=== PATIENT | male | born 1965 | race Caucasian/White ===

== ENCOUNTER → 2020-02-15 | Outpatient (CLI) | payer BC ==
--- NOTE | 2020-02-15 08:41 | US ---
EXAMINATION TYPE: US liver DATE OF EXAM: 02/15/2020 COMPARISON: NONE CLINICAL HISTORY: R94.5 abn liver function. EXAM MEASUREMENTS: Liver Length: 13.2 cm Gallbladder Wall: 0.2 cm CBD: 0.2 cm Right Kidney: 11.9 x 4.1 x 5.6 cm Extensive midline bowel gas. Pancreas: Obscured by bowel gas Liver: homogenous Gallbladder: wnl Evidence for sonographic Eastman's sign: no CBD: wnl Right Kidney: wnl IMPRESSION: Normal right upper quadrant ultrasound as visualized
== END | disposition home or self-care (01) ==
LOC: RADUSWWP 08:05
PROVIDERS: ATTEND Internal Medicine
DX: R94.5 Abnormal results of liver function studies (principal)
CPT/HCPCS: 76705

== ENCOUNTER → 2021-09-07 | Outpatient (CLI) | payer BC ==
--- NOTE | 2021-09-08 14:04 | MR ---
EXAMINATION TYPE: MR lumbar spine wo con DATE OF EXAM: 09/07/2021 COMPARISON: NONE HISTORY: Low back pain that radiates down left leg for 2 months. TECHNIQUE: Multiplanar, multisequence imaging of the lumbar spine is performed without IV contrast. FINDINGS: Slight scoliotic curvature coronal images. Sagittal images of the lumbar spine show vertebr al body heights and alignment to appear satisfactory. Multilevel disc desiccation with advanced disc space narrowing L4-L5 level and heterogeneous Modic type I endplate changes with mild to moderate spu rring. The conus medullaris is abutted by round intradural extra medullary 1.4 cm lesion isointense to the conus on T1-weighted images and hyperintense on T2-weighted images to left of midline causing right-sided conus deviation axial image 29. The bone marrow signal intensity is overall diffuse low T1 and T2 signal but not as dark as adjacent paraspinal muscles favoring benign etiology. Axial images at T12-L1 level show left rounded well-circumscribed 1.2 cm T2 hyperintense intradural e xtra medullary mass causing lumbosacral nerve roots to be deviated to right of midline. Axial images at L1-L2 level show tiny central disc protrusion mildly effacing anterior thecal sac.. B ilateral neural foramina. Axial images at L2-L3 level appear within normal limits. Axial images at L3-L4 level show mild broad disc bulge minimally effacing anterior thecal sac and cau sing mild left-sided anterior inferior neural foraminal narrowing. Axial images at L4-L5 level mild/moderate broad-based posterior disc protrusion with broad-based righ t foraminal/extraforaminal disc protrusion component causing moderate inferior right-sided neural for aminal narrowing. Axial images at L5-S1 level show mild facet arthropathy bilaterally. Spinal canal is preserved. Bilat eral neural foramina are patent. There are central simple parapelvic cysts in both kidneys noted. IMPRESSION: Multilevel degenerative changes in lumbar spine as detailed above. There is 1.2 cm intrad ural extramedullary lesion at level of conus. Differential includes leptomeningeal metastatic disease versus primary neoplasm such as meningioma. Advise further workup with contrast-enhanced study and c linical correlation.
== END | disposition home or self-care (01) ==
LOC: RADMRIMAIN 15:08
PROVIDERS: ATTEND Internal Medicine
DX: M51.26 Other intervertebral disc displacement, lumbar region (principal)
CPT/HCPCS: 72148

== ENCOUNTER → 2021-09-19 | Outpatient (CLI) | payer BC ==
--- NOTE | 2021-09-20 03:11 | MR ---
EXAMINATION TYPE: MR brain/cspine wo/w DATE OF EXAM: 09/19/2021 COMPARISON: None HISTORY: Abnormal lspine study, lesions, Neck and back pain, headaches CONTRAST: Standard multiplanar, multisequence MRI departmental protocol images were obtained without contrast a nd with 8.5 mL intravenous Gadavist gadolinium contrast. Multiplanar multi echo imaging of the brain and cervical spine with contrast. On the T2 images there is a mixed signal mass in the posterior fossa on the left side at the cerebell opontine angle. This appears separate from the acoustic nerve. The lesion has some intermediate and f luid signal. The lesion measures 3.6 cm with some displacement of the medulla to the right side. The lesion shows extensive pathologic enhancement with contrast. Lesion appears to be intra-axial arising from the cerebellar hemisphere. There is normal enhancement of the venous sinuses. Corpus callosum is intact. Sella turcica is intact. Diffusion images show no sign of an acute infarct . There is no evidence of orbital mass. There are other T2 and FLAIR images scattered white matter hi gh signal foci in both cerebral hemispheres measuring up to 5 mm. Total number is approximately 10 an d this could be some microvascular ischemia The cervical vertebra show fairly normal alignment. No significant disc space narrowing. There is min imal left-sided posterior disc bulging and spurring at C5-6 and C6-7. No cervical spinal stenosis. Ce rvical spinal cord has normal signal pattern. No edema. No evidence of focal bone destruction. The contrast images show elongated area of enhancement on the anterior aspect of the cervical spinal cord at the T1 and T2 level that measures 3 mm in thickness. IMPRESSION: Large mass in the posterior fossa on the left side that appears to be arising from the left cerebella r peduncle. This is intra-axial and enhancing and I would consider the possibility of a high-grade gl ioma. There is mass effect on the medulla but no edema seen in the medulla. There are scattered white matter high signal foci in both cerebral hemispheres likely related to some microvascular ischemia. There is small linear enhancing foci along anterior surface of the upper thoracic spinal cord at T1 a nd T2 level that could be meningeal metastatic disease..
== END | disposition home or self-care (01) ==
LOC: RADMRIMAIN 14:00
PROVIDERS: ATTEND Orthopaedic Surgery
DX: G93.89 Other specified disorders of brain (principal)
CPT/HCPCS: 70553; 72156; A9585

== ENCOUNTER → 2021-09-21 | Outpatient (CLI) | payer BC ==
--- NOTE | 2021-09-22 03:07 | MR ---
EXAMINATION TYPE: MR tspine/lspine wo/w con DATE OF EXAM: 09/21/2021 COMPARISON: None HISTORY: Bone lesion, abn mri CONTRAST: Standard multiplanar, multisequence MRI departmental protocol images were obtained without contrast a nd with 8.5 mL intravenous Gadavist gadolinium contrast. The thoracic vertebrae have fairly normal spacing and alignment. No compression fracture. No evidence of bone edema in the thoracic spine. Thoracic spinal cord has normal signal pattern. No spinal thora cic cord mass. No sign of thoracic spinal stenosis. No paraspinal mass. Lumbar vertebrae have normal alignment. There is mild narrowing of the L4-5 disc space and small posterior disc bulging at L4-5. The neural f oramina are fairly well maintained. There is a rounded mass within the spinal canal at the T12-L1 level. The spinal cord does not appear to be displaced significantly. The mass is densely enhancing and is in the midline and towards the le ft side. The mass measures 13 x 20 mm. No evidence of focal adjacent bone destruction. IMPRESSION: Enhancing intradural mass in the spinal canal at the T12 level involving the conus. It is not clear i f this is intramedullary or extra medullary. There is no significant displacement of the cord above t he mass and therefore this could be tumor arising from the cord. However the mass is densely enhancin g and this is a feature of meningioma. There is some mild ordinary degenerative disc changes in the lower lumbar spine at L4-5. No significa nt disc disease in the thoracic spine.
== END | disposition home or self-care (01) ==
LOC: RADMRIMAIN 13:48
PROVIDERS: ATTEND Orthopaedic Surgery
DX: M51.26 Other intervertebral disc displacement, lumbar region (principal); M51.86 Other intervertebral disc disorders, lumbar region
CPT/HCPCS: 72157; 72158; A9585

== ENCOUNTER → 2022-04-23 | Outpatient (CLI) | payer BC ==
[2022-04-23 11:33] LABS: African American GFR (CKD) >90 (>60 ml/min/1.73 sqM); Blood Urea Nitrogen 27 mg/dL (9-20); Non-African American GFR(CKD) >90 (>60 ml/min/1.73 sqM)
--- NOTE | 2022-04-23 12:38 | CT ---
"EXAMINATION TYPE: CT neck chest w con DATE OF EXAM: 04/23/2022 COMPARISON: None HISTORY: 56-year-old male, R13.10, dysphagia, vocal cord paralysis. hx of brain and spine sx. TECHNIQUE: Contiguous axial scanning of the soft tissues of the neck followed by the chest performed with IV Contrast, patient injected with 100 mL of Isovue 300. Coronal/sagittal reconstructions perfor med. CT DLP: 846.70 mGycm Automated exposure control for dose reduction was used. FINDINGS: NECK: There is a left paramedian inferior posterior craniectomy defect and C1 dorsal decompression. There i s some overlying fluid tear measuring 3.7 x 2.0 x 1.0 cm extending inferiorly. Visualized paranasal sinuses, orbits and globes, mastoid air cells appear clear. The nasopharynx appears clear. However, there is asymmetric soft tissue thickening in the region of the right tubal tonsils, axial i mage 64. This extends down to the right side of the nasopharyngeal and oropharyngeal junction, axial image 58. Otherwise, oropharynx is clear. Epiglottis and prevertebral soft tissues are satisfactory. There is right vocal fold medialization and possible soft tissue thickening, axial image, axial image 38. The tracheal column appears clear. The thyroid gland, submandibular glands, and parotid glands are satisfactory. No cervical lymphadenopathy identified. There is moderate degenerative disc disease mid to lower cervical spine. CHEST: Heart is upper limits of normal in size. There is a small anterior pericardial effusion measuring up to 1 cm thick. No flattening of the interventricular septum. Mild ectasia ascending aorta at 3.6 cm. There is conventional for some branching anatomy. No thoracic lymphadenopathy by size criteria. There is a large, nearly occlusive clot filling the proximal interlobar right pulmonary artery and ad ditional large clot within the proximal right upper lobar pulmonary artery branch. There is patchy airspace disease at the posterior right base. Suspect bands of atelectasis at the lef t base. There is a trace right pleural effusion. Visualized upper abdomen shows low-attenuation of the hepatic parenchyma suggesting fatty infiltratio n. Bones: [facility] throughout the mid and lower thoracic spine. Query previous laminectomy/surgery T12 and down extending out the field of view. IMPRESSION: NECK: 1. Asymmetric soft tissue thickening in the region of the right tubal tonsils extending down along th e cervical mucosal space to the level of the nasopharyngeal and oropharyngeal junction. Recommend dir ect visualization to exclude NEOPLASM. 2. Right vocal fold medialization and some apparent soft tissue thickening. Again, direct visualizati on to exclude NEOPLASM. 3. No suspicious cervical lymphadenopathy. 4. There appears to be postsurgical change of prior Chiari decompression surgery. An overlying fluid collection at the surgical site measures 2.7 x 2.0 x 1.0 cm and could reflect a chronic seroma or men ingocele. Clinically correlate. CHEST: 5. LARGE, NEARLY OCCLUSIVE CLOT/PE FILLING THE PROXIMAL INTERLOBAR RIGHT PULMONARY ARTERY BRANCH AND ADDITIONAL LARGE CLOT WITHIN THE PROXIMAL RIGHT UPPER LOBAR PULMONARY ARTERY BRANCH. FAIRLY LARGE BUR DEN ON THE RIGHT. NO CT EVIDENCE OF RIGHT HEART STRAIN AT THIS TIME. 6. Trace right pleural effusion with posterior right basilar airspace disease. This could represent d eveloping pulmonary infarct or pneumonia. 7. Small anterior pericardial effusion measuring 1 cm thick. 8. No suspicious thoracic lymphadenopathy or mediastinal mass. 9. Incidental hepatic steatosis. 10. Previous laminectomy/surgery at T12 and extending down outside the [id number]. A Red level critical message alert has been initiated for Ashu Eric DO via the [email or web address] | Critical Results System on 04/23/2022 12:34 PM. This message alert has been sent to Ashu valencia DO via the preferences provided by the clinician for the receipt of Radiology Critical F indings. Message ID [id number]."
== END | disposition home or self-care (01) ==
LOC: RADCTMAIN 10:26
PROVIDERS: ATTEND Otolaryngology
DX: J34.89 Other specified disorders of nose and nasal sinuses (principal); I31.39 Other pericardial effusion (noninflammatory); K76.0 Fatty (change of) liver, not elsewhere classified; J90 Pleural effusion, not elsewhere classified; R13.10 Dysphagia, unspecified
CPT/HCPCS: 82565; 84520; 70491; 71260; 36415; Q9967

== ENCOUNTER 2022-12-23 09:06 | Day surgery (SDC) | payer BC ==
[~2022-12-23 09:06] MED LIST: ACETAMINOPHEN TAB 500 MG TAB PO PRN; DEXAMETHASONE SOD PHOSPHATE 4 MG/ML 1 ML VIAL IV ONE; DEXAMETHASONE SOD PHOSPHATE 4 MG/ML 1 ML VIAL IV PRN; FAMOTIDINE 20 MG/2 ML VIAL IV PRN; HYDROmorphone 0.5 MG/0.5 ML SYRINGE IVP PRN; LACTATED RINGERS 1,000 ML IV SCH; LIDOCAINE 1% (10MG/ML) FOR IV START INTRADERMA PRN; ONDANSETRON 4 MG/2 ML VIAL IVP ONE; ONDANSETRON 4 MG/2 ML VIAL IVP PRN; droPERidol 5 MG/2 ML VIAL IVP ONE; metroNIDAZOLE-NS PMX 500 MG in SALINE 1 100ML.BAG IVPB PRN
[2022-12-23] MEDS: OXYMETAZOLINE 0.05% NASL SPRAY 1 SPRAY BOTTLE EA NOSTRIL PRN ×4 (09:55→10:15)
[2022-12-23 10:25] LABS: Glucose,Whole Blood 84 mg/dL (70-110)
[2022-12-23] MEDS ORDERED: DEXAMETHASONE SOD PHOSPHATE 4 MG/ML 1 ML VIAL IVP ONE (10:26)
[2022-12-23] MEDS ORDERED: DEXAMETHASONE SOD PHOSPHATE 10 MG/ML 1 ML VIAL ONE (10:55)
[2022-12-23] MEDS ORDERED: HYDROmorphone (PF) 1 MG/ML ONE (10:55)
[2022-12-23] MEDS ORDERED: MIDAZOLAM 2 MG/2 ML VIAL ONE (10:55)
[2022-12-23] MEDS ORDERED: fentaNYL (PF) 50 MCG/ML 2 ML AMP ONE (10:55)
[2022-12-23] MEDS ORDERED: LABETALOL 5 MG/ML VIAL MDV ONE (10:55)
[2022-12-23] MEDS ORDERED: PROPOFOL 10 MG/ML 20 ML VIAL IV ONE (10:55)
[2022-12-23] MEDS ORDERED: BUPIVACAINE (PF) 0.5% 30 ML VIAL SQ ONE ×2 (11:23)
[2022-12-23] MEDS ORDERED: LIDOCAINE 2%-EPI 1:100,000 20 ML VIAL SQ ONE ×2 (11:23)
[2022-12-23] MEDS ORDERED: amLODIPine 10 MG TAB PO STA (12:45)
[2022-12-23] MEDS ORDERED: SODIUM CHLORIDE 0.9% 1,000 ML IV ONE (13:00)
[2022-12-23 13:05] VITALS: TEMP 97
--- NOTE | 2022-12-23 13:06 | P.OP ---
Date of Procedure: 12/23/22 Preoperative Diagnosis: Left vocal cord paralysis Postoperative Diagnosis: Same Procedure(s) Performed: Flexible nasopharyngolaryngoscope Left medialization thyroplasty utilizing a Ribeiro implant #10 Anesthesia: MAC Surgeon: Ashu Eric Estimated Blood Loss (ml): 10 Pathology: none sent Condition: stable Disposition: PACU Indications for Procedure: This patient suffers from a total incomplete left vocal cord paralysis. Surgical correction is recommended as the patient has a severely dysphonic voice. All risks, benefits and alternative therapies were discussed in detail. Consent was obtained and all questions were answered. Operative Findings: Patient had a left vocal cord paralysis total incomplete we utilized a #10 Ribeiro implant male Description of Procedure: Patient was taken to the operative room placed in the supine position IV sedation was administered the patient and the neck was sterilely prepped and draped in usual fashion. -A flexible nasopharyngolaryngoscope was placed in the patient's left nares and devitalized the nasopharynx oropharynx and hypopharynx. The left vocal cord was paralyzed in the paramedian position. The scope was then removed A horizontal incision was made down through the platysmas muscle to the strap muscles the strap muscles were identified in the midline and then reflected laterally and allowed us to visualize the thyroid cartilage. The thyroid cart ilage was visualize completely on the left side and utilizing a Ribeiro implant system measurements were made for the window. We utilized a reciprocating saw to make cuts into the laryngeal cartilage. We developed the window and was appropriate sized. We then utilized different size Ribeiro implants all the patient vocalized. We found that the #10 Ribeiro implant was the implant that provided the best voice with no signs of any inspiratory or expiratory stridor. We then utilized a #[address] this into the laryngeal framework. The patient tolerated this well the musculature was closed with 4-0 Vicryl. The strap muscles were closed with 4-0 Vicryl. The platysmas was closed with 4-0 Vicryl. The deep dermal layer was closed with 5-0 Monocryl and the skin was closed with a 50 rapid Vicryl in a running nonlocking fashion Steri-Strips were applied.
[2022-12-23 14:35] VITALS: PULSE 85
[2022-12-23] MEDS ORDERED: lisinopriL 10 MG TAB PO STA (14:47)
[2022-12-23 16:05] VITALS: BP 148/93; RESP 20
== END 2022-12-23 15:02 | disposition home or self-care (01) ==
LOC: OR 09:06
PROVIDERS: ATTEND Otolaryngology
DX: J38.01 Paralysis of vocal cords and larynx, unilateral (principal); Z79.899 Other long term (current) drug therapy; Z98.890 Other specified postprocedural states
CPT/HCPCS: 31591; J1100; J0690; J2405; J3490; J1836; J0665

== ENCOUNTER → 2023-04-20 | Outpatient (CLI) | payer BC ==
--- NOTE | 2023-04-21 09:49 | CA ---
Transthoracic Echo Report Name: Charles Andrade Age: 57 Gender: M : 1965 Exam Date: 04/20/2023 13:22 Exam Location: [facility] Ht (in): 67 Wt (lb): 195 Ordering Physician: Rhett Contreras DO Attending/Referring Phys: Machinery Engineer Isis Barfield RDCS Procedure CPT: Indications: R60 edema (lower extremity) Cardiac Hx: Technical Quality: Good Contrast 1: Total Dose (mL): Contrast 2: Total Dose (mL): MEASUREMENTS (Male / Female) Normal Values 2D ECHO LV Diastolic Diameter PLAX 5.1 cm 4.2 - 5.9 / 3.9 - 5.3 cm LV Systolic Diameter PLAX 3.4 cm IVS Diastolic Thickness 1.5 cm 0.6 - 1.0 / 0.6 - 0.9 cm LVPW Diastolic Thickness 1.4 cm 0.6 - 1.0 / 0.6 - 0.9 cm LV Relative Wall Thickness 0.6 RV Internal Dim ED PLAX 3.3 cm LA Systolic Diameter LX 4.0 cm 3.0 - 4.0 / 2.7 - 3.8 cm LV Diastolic Volume MOD BP 122.5 cm??? 67 - 155 / 56 - 104 cm??? LV Systolic Volume MOD BP 41.2 cm??? 22 - 58 / 19 - 49 cm??? LV Ejection Fraction MOD BP 66.4 % >= 55 % LV Cardiac Index MOD BP 2867.9 cm???/min???m??? LV Diastolic Volume MOD 4C 127.7 cm??? LV Systolic Volume MOD 4C 41.9 cm??? LV Ejection Fraction MOD 4C 67.2 % LV Cardiac Index MOD 4C 3023.2 cm???/min???m??? LV Diastolic Length 4C 7.6 cm LV Systolic Length 4C 7.2 cm LV Diastolic Volume MOD 2C 108.6 cm??? LV Systolic Volume MOD 2C 42.4 cm??? LV Ejection Fraction MOD 2C 60.9 % LV Cardiac Index MOD 2C 2331.6 cm???/min???m??? LV Diastolic Length 2C 8.4 cm LV Systolic Length 2C 7.2 cm LA Volume 55.1 cm??? 18 - 58 / 22 - 52 cm??? LA Volume Index 26.6 cm???/m??? 16 - 28 cm???/m??? M-MODE Aortic Root Diameter MM 3.7 cm MV E Point Septal Separation 0.5 cm AV Cusp Separation MM 2.6 cm DOPPLER AV Peak Velocity 141.5 cm/s AV Peak Gradient 8.0 mmHg AI Peak Velocity 448.6 cm/s AI Peak Gradient 80.5 mmHg AI Pressure Half Time 837.4 ms MV Area PHT 2.9 cm??? Mitral E Point Velocity 69.4 cm/s Mitral A Point Velocity 85.0 cm/s Mitral E to A Ratio 0.8 MV Deceleration Time 257.6 ms MV E' Velocity 7.6 cm/s Mitral E to MV E' Ratio 9.1 TR Peak Velocity 244.7 cm/s TR Peak Gradient 24.0 mmHg Right Ventricular Systolic Press 28.5 mmHg FINDINGS Left Ventricle Left ventricular ejection fraction is estimated at 55-60 %. Left ventricular cavity size normal. Moderately increased septal wall thickness. Right Ventricle Normal right ventricular size. Right ventricular systolic pressure within normal limits. Right Atrium Normal right atrial size. Left Atrium Normal left atrial size. Mitral Valve Structurally normal mitral valve. Moderate mitral regurgitation. Posteriorly directed mitral regurgitation jet. Aortic Valve Trileaflet aortic valve. Moderate aortic regurgitation. Tricuspid Valve Structurally normal tricuspid valve. Mild tricuspid regurgitation. Pulmonic Valve Structurally normal pulmonic valve. Mild pulmonic regurgitation. Pericardium No pericardial effusion. Aorta Normal size aortic root and proximal ascending aorta. CONCLUSIONS Normal LV systolic function. The ejection fraction is 55-60% Moderate mitral regurgitation with eccentric/posterior jet Moderate aortic insufficiency with also eccentric jet. Cannot exclude an echo density on the right coronary cusp. Further investigation is advised like transesophageal echocardiogram Previewed by: Dr. Sagar Hernandez MD (Electronically Signed) Final Date: 21 April 2023 09:48
== END | disposition home or self-care (01) ==
LOC: RADECHMAIN 13:15
PROVIDERS: ATTEND Internal Medicine
DX: I34.0 Nonrheumatic mitral (valve) insufficiency (principal); R60.0 Localized edema
CPT/HCPCS: 93306

== ENCOUNTER 2024-01-10 11:04 | Inpatient (IN) | payer MEDICARE, BC ==
--- NOTE | 2024-01-10 11:18 | ED ---
General Adult HPI - General Chief complaint: Fall Stated complaint: Fall Time Seen by Provider: 01/10/24 11:10 Source: patient, EMS, RN notes reviewed, old records reviewed Mode of arrival: EMS Limitations: no limitations - History of Present Illness Initial comments: This is a 58-year-old male who presents to the emergency department the past medical history significant for cancer in his brain and spine according to EMS. Patient states that he felt weak so he sat on the ground but he was unable to get up so he was there for 12 hours awaiting for someone to come back and help him out. Patient might have some blood in his muscle EMS did put a c-collar on. Patient is alert and oriented x 3 he does not know the exact date however. Patient denies any complaints currently he states initially when he got up his butt hurt because he was set not up for the 12 hours but he denies any complaints currently. Patient denies any recent fever chills or cough or patient has chest pain difficulty breathing or shortness of breath. Patient denies any abdominal pain patient has nausea vomiting diarrhea - Related Data Home Medications Medication Instructions Recorded Confirmed Acyclovir [Zovirax] 400 mg PO HS 12/17/22 12/23/22 Apixaban [Eliquis] 5 mg PO BID 12/17/22 12/23/22 Chlorthalidone 25 mg PO DIRECTED PRN 12/17/22 12/23/22 Gabapentin [Neurontin] 100 mg PO TID 12/17/22 12/23/22 Omeprazole 20 mg PO DAILY 12/17/22 12/23/22 Ondansetron [Zofran] 4 mg PO DIRECTED PRN 12/17/22 12/23/22 Tamsulosin HCl [Flomax] 0.4 mg PO HS 12/17/22 12/23/22 Temozolomide [Temodar] 300 mg PO DIRECTED 12/17/22 12/23/22 Unk Keytruda Infusion 1 bag IV DIRECTED 12/17/22 12/23/22 Unk Testosterone 200 mg PO WEEKLY 12/17/22 12/23/22 amLODIPine BESYLATE 5 mg PO HS 12/17/22 12/23/22 dexAMETHasone 2 mg PO DAILY 12/17/22 12/23/22 oxyCODONE-APAP 10-325MG [Percocet 1 tab PO Q6HR PRN 12/17/22 12/23/22 10-325 mg] Previous Rx's Medication Instructions Recorded Amoxic-Pot Clav 875-125Mg 1 tab PO Q12HR 10 Days #20 tab 12/23/22 [Augmentin 875-125] oxyCODONE HCL/ACETAMINOPHEN 1 each PO Q6H 3 Days #12 tab 12/23/22 [Oxycodone-Acetaminophen 5-325] predniSONE [Deltasone] 20 mg PO QAM 5 Days #5 tab 12/23/22 Allergies Allergy/AdvReac Type Severity Reaction Status Date / Time No Known Allergies Allergy Verified 12/23/22 09:46 Review of Systems ROS Statement: Those systems with pertinent positive or pertinent negative responses have been documented in the HPI. ROS Other: All systems not noted in ROS Statement are negative. Past Medical History Past Medical History: Cancer, Deep Vein Thrombosis (DVT), GERD/Reflux, Hypertension, Prostate Disorder Additional Past Medical History / Comment(s): Brain and spine cancer on oral chemo. left vocal cord paralysis, some issues with swallowing per . History of Any Multi-Drug Resistant Organisms: None Reported Additional Past Surgical History / Comment(s): colonoscopy, brain and spine surgery. vasectomy and reversal. Past Anesthesia/Blood Transfusion Reactions: Family History of Problems w/ Anesthesia Additional Past Anesthesia/Blood Transfusion Reaction / Comment(s): mom n/v Smoking Status: Never smoker - Past Family History Father Family Medical History: Coronary Artery Disease (CAD) General Exam - General Exam Comments Initial Comments: GENERAL: Patient is well-developed and well-nourished. Patient is nontoxic and well- hydrated and is in no acute distress. ENT: Neck is soft and supple. No significant lymphadenopathy is noted. Oropharynx is clear. Moist mucous membranes. Neck has full range of motion without eliciting any pain. EYES: The sclera were anicteric and conjunctiva were pink and moist. Extraocular movements were intact and pupils were equal round and reactive to light. Eyelids were unremarkable. PULMONARY: Unlabored respirations. Good breath sounds bilaterally. No audible rales rhonchi or wheezing was noted. CARDIOVASCULAR: There is a regular rate and rhythm without any murmurs gallops or rubs. ABDOMEN: Soft and nontender with normal bowel sounds. SKIN: Skin is clear with no lesions or rashes and otherwise unremarkable. NEUROLOGIC: Patient is alert and oriented x3. Cranial nerves II through XII are grossly intact. Motor and sensory are also intact. Normal speech, volume and content. Symmetrical smile. MUSCULOSKELETAL: Normal extremities with adequate strength and full range of motion. No lower extremity swelling or edema. No calf tenderness. LYMPHATICS: No significant lymphadenopathy is noted PSYCHIATRIC: Normal psychiatric evaluation. Limitations: no limitations Course Vital Signs 01/10/24 01/10/24 01/10/24 11:05 13:00 14:00 Temperature 98.9 F Pulse Rate 110 H 107 H 108 H Respiratory 20 16 18 Rate Blood Pressure 132/84 131/82 132/95 O2 Sat by Pulse 97 98 98 Oximetry Medical Decision Making - Medical Decision Making EKG is interpreted by myself but EKG shows sinus rhythm at 99 bpm [place] interval 243 QRS is 105 QT interval 332 QTc is 388. Patient's EKG shows no ST segment elevation or depression Was pt. sent in by a medical professional or institution (, PA, GRADE TAMPER, urgent care, hospital, or snf...) When possible be specific @ -No Did you speak to anyone other than the patient for history (EMS, parent, family, police, friend...)? What history was obtained from this source @ -No Did you review nursing and triage notes (agree or disagree)? Why? @ -I reviewed and agree with nursing and triage notes Were old charts reviewed (outside hosp., previous admission, EMS record, old EKG, old radiological studies, urgent care reports/EKG's, snf records)? Report findings @ -No old charts were reviewed Differential Diagnosis? @ -Differential Altered Mental Status: Hypoglycemia, DKA, hypercapnia, ETOH, overdose, CO poisoning, trauma, myxedema coma, HTN encephalopathy, infection, encephalitis, psychosis, intercranial hemorrhage, hepatic encephalopathy, meningitis, CVA, this is not meant to be an all-inclusive list EKG interpreted by me (3pts min.). @ -As above X-rays interpreted by me (1pt min.). @ -None done CT interpreted by me (1pt min.). @ -CT of the brain shows no acute abnormality U/S interpreted by me (1pt. min.). @ -None done What testing was considered but not performed or refused? (CT, X-rays, U/S, labs)? Why? @ -None What meds were considered but not given or refused? Why? @ -None Did you discuss the management of the patient with other professionals (professionals i.e. , PA, GRADE TAMPER, lab, RT, psych nurse, psychiatric social worker, design center consultant, teacher, operational intelligence officer, egg caser)? Give summary @ -I spoke with Dr. Morejon he agreed to admit the patient admit the patient I wrote admitting orders Was smoking cessation discussed for >3mins.? @ -No Was critical care preformed (if so, how long)? @ -No Were there social determinants of health that impacted care today? How? (Homelessness, low income, unemployed, alcoholism, drug addiction, transportation, low edu. Level, literacy, decrease access to med. care, assisted, re hab)? @ -No Was there de-escalation of care discussed even if they declined (Discuss DNR or withdrawal of care, Hospice)? DNR status @ -No What co-morbidities impacted this encounter? (DM, HTN, Smoking, COPD, CAD, Cancer, CVA, ARF, Chemo, Hep., AIDS, mental health diagnosis, sleep apnea, morbid obesity)? @ -None Was patient admitted / discharged? Hospital course, mention meds given and route, prescriptions, significant lab abnormalities, going to OR and other pertinent info. @ -Patient remained altered in the emergency department when I spoke with his daughter she was in agreement with this. Patient had a CT scan showed no acute abnormality. Patient's lab work was also within normal range. Undiagnosed new problem with uncertain prognosis? @ -No Drug Therapy requiring intensive monitoring for toxicity (Heparin, Nitro, Insulin, Cardizem)? @ -No Were any procedures done? @ -No Diagnosis/symptom? @ -Altered mental status Acute, or Chronic, or Acute on Chronic? @ -Acute Uncomplicated (without systemic symptoms) or Complicated (systemic symptoms)? @ -Complicate Side effects of treatment? @ -No Exacerbation, Progression, or Severe Exacerbation? @ -No Poses a threat to life or bodily function? How? (Chest pain, [place], [place], pneumonia, PE, COPD, DKA, ARF, appy, cholecystitis, CVA, Diverticulitis, Homicidal, Suicidal, threat to staff... and all critical care pts) @ -Yes this since mechanism that is causing him to be altered is unknown this could lead to threat to life or bodily function. - Lab Data Result diagrams: 12/03/24 11:25 01/10/24 11:25 Lab Results 01/10/24 01/10/24 01/10/24 Range/Units 11:20 11:25 11:25 WBC 7.8 (3.8-10.6) k/uL RBC 5.96 H (4.30-5.90) m/uL Hgb 17.0 (13.0-17.5) gm/dL Hct 55.4 H (39.0-53.0) % MCV 93.1 (80.0-100.0) fL MCH 28.6 (25.0-35.0) pg MCHC 30.7 L (31.0-37.0) g/dL RDW 17.2 H (11.5-15.5) % Plt Count 215 (150-450) k/uL MPV 7.5 Neutrophils % 85 % Lymphocytes % 5 % Monocytes % 6 % Eosinophils % 1 % Basophils % 0 % Neutrophils # 6.6 (1.3-7.7) k/uL Lymphocytes # 0.4 L (1.0-4.8) k/uL Monocytes # 0.4 (0-1.0) k/uL Eosinophils # 0.1 (0-0.7) k/uL Basophils # 0.0 (0-0.2) k/uL Hypochromasia Slight Anisocytosis Slight PT (10.0-12.5) sec INR (<1.2) APTT (22.0-30.0) sec Sodium 140 (137-145) mmol/L Potassium 4.8 (3.5-5.1) mmol/L Chloride 103 (98-107) mmol/L Carbon Dioxide 28 (22-30) mmol/L Anion Gap 9 mmol/L BUN 23 H (9-20) mg/dL Creatinine 1.24 (0.66-1.25) mg/dL Est GFR (CKD-EPI)AfAm 74 (>60 ml/min/1.73 sqM) Est GFR (CKD-EPI)NonAf 64 (>60 ml/min/1.73 sqM) Glucose 85 (74-99) mg/dL POC Glucose (mg/dL) 82 (70-110) mg/dL POC Glu Inspector Cl[employer]unglasses ID Lew Jhon Calcium 9.1 (8.4-10.2) mg/dL Total Bilirubin 1.2 (0.2-1.3) mg/dL AST 55 (17-59) U/L ALT 66 H (4-49) U/L Alkaline Phosphatase 57 (38-126) U/L Creatine Kinase 597 H (55-170) U/L Troponin I (0.000-0.034) ng/mL Total Protein 6.5 (6.3-8.2) g/dL Albumin 4.0 (3.5-5.0) g/dL 01/10/24 01/10/24 Range/Units 11:25 11:25 WBC (3.8-10.6) k/uL RBC (4.30-5.90) m/uL Hgb (13.0-17.5) gm/dL Hct (39.0-53.0) % MCV (80.0-100.0) fL MCH (25.0-35.0) pg MCHC (31.0-37.0) g/dL RDW (11.5-15.5) % Plt Count (150-450) k/uL MPV Neutrophils % % Lymphocytes % % Monocytes % % Eosinophils % % Basophils % % Neutrophils # (1.3-7.7) k/uL Lymphocytes # (1.0-4.8) k/uL Monocytes # (0-1.0) k/uL Eosinophils # (0-0.7) k/uL Basophils # (0-0.2) k/uL Hypochromasia Anisocytosis PT 11.3 (10.0-12.5) sec INR 1.0 (<1.2) APTT 23.8 (22.0-30.0) sec Sodium (137-145) mmol/L Potassium (3.5-5.1) mmol/L Chloride (98-107) mmol/L Carbon Dioxide (22-30) mmol/L Anion Gap mmol/L BUN (9-20) mg/dL Creatinine (0.66-1.25) mg/dL Est GFR (CKD-EPI)AfAm (>60 ml/min/1.73 sqM) Est GFR (CKD-EPI)NonAf (>60 ml/min/1.73 sqM) Glucose (74-99) mg/dL POC Glucose (mg/dL) (70-110) mg/dL POC Glu Inspector [employer] ID Calcium (8.4-10.2) mg/dL Total Bilirubin (0.2-1.3) mg/dL AST (17-59) U/L ALT (4-49) U/L Alkaline Phosphatase (38-126) U/L Creatine Kinase (55-170) U/L Troponin I 0.024 (0.000-0.034) ng/mL Total Protein (6.3-8.2) g/dL Albumin (3.5-5.0) g/dL Disposition Clinical Impression: Altered mental status Disposition: ADMITTED IP TO THIS HOSP Referrals: Rhett Contreras DO [Primary Care Provider] - 1-2 days Time of Disposition: 14:35
[2024-01-10 11:23] LABS: Glucose,Whole Blood 82 mg/dL (70-110)
[2024-01-10] MEDS: SODIUM CHLORIDE 0.9% 500 ML 500 ML IV ONE (11:31)
[2024-01-10 11:42] LABS: Partial Thromboplastin Time 23.8 sec (22.0-30.0); Prothrombin Time 11.3 sec (10.0-12.5)
[2024-01-10 11:43] LABS: ALT 66 U/L (4-49); AST 55 U/L (17-59); African American GFR (CKD) 74 (>60 ml/min/1.73 sqM); Alkaline Phosphatase 57 U/L (38-126); Anion Gap 9 mmol/L; Blood Urea Nitrogen 23 mg/dL (9-20); Calcium 9.1 mg/dL (8.4-10.2); Carbon Dioxide 28 mmol/L (22-30); Chloride 103 mmol/L (98-107); Creatine Kinase 597 U/L (55-170); Glucose 85 mg/dL (74-99); Non-African American GFR(CKD) 64 (>60 ml/min/1.73 sqM); Potassium 4.8 mmol/L (3.5-5.1); Sodium 140 mmol/L (137-145); Total Bilirubin 1.2 mg/dL (0.2-1.3); Total Protein 6.5 g/dL (6.3-8.2)
[2024-01-10 11:45] LABS: Anisocytosis Slight; Basophils % (A) 0 %; Eosinophils # (A) 0.1 k/uL (0-0.7); Eosinophils % (A) 1 %; HCT 55.4 % (39.0-53.0); Hypochromasia Slight; Lymphocytes # (A) 0.4 k/uL (1.0-4.8); Lymphocytes % (A) 5 %; MCH 28.6 pg (25.0-35.0); MCHC 30.7 g/dL (31.0-37.0); MCV 93.1 fL (80.0-100.0); Mean Platelet Volume 7.5; Monocytes # (A) 0.4 k/uL (0-1.0); Monocytes % (A) 6 %; Neutrophils # (A) 6.6 k/uL (1.3-7.7); Neutrophils % (A) 85 %; Platelet Count 215 k/uL (150-450); RBC 5.96 m/uL (4.30-5.90); RDW 17.2 % (11.5-15.5); WBC 7.8 k/uL (3.8-10.6)
--- NOTE | 2024-01-10 12:15 | CT ---
EXAMINATION TYPE: CT brain cspine wo con CT DLP: 1557.4 mGycm, Automated exposure control for dose reduction was used. DATE OF EXAM: 01/10/2024 12:06 PM COMPARISON: MRI brain C-spine 09/19/2021, CT neck chest 04/23/2022. CLINICAL INDICATION:Male, 58 years old with history of Trauma; brain ca/found on floor TECHNIQUE: Brain: Multiple axial CT images of the brain were obtained without IV contrast. Cspine: Axial CT images from the skull base to the inferior aspect of T2 we obtained without intraven ous contrast. Coronal and sagittal reformatted images were also reviewed. FINDINGS: Brain: Motion degraded exam. Extra-axial spaces: No abnormal extra-axial fluid collections. Ventricular system: Within normal limits Cerebral parenchyma: No gross evidence of acute intraparenchymal hemorrhage or mass effect. The infante -white junction is well differentiated. Scattered hypoattenuating areas are seen within the periventr icular and subcortical white matter. Cerebellum: Postsurgical changes within the left cerebellum with hypodense appearance. Mass effect: No evidence of midline shift. Intracranial vasculature: Atherosclerotic calcifications of the intracranial vessels. Soft tissues: Normal. Calvarium/osseous structures: No gross evidence of depressed skull fracture. Postsurgical changes of the left occiput. Paranasal sinuses and mastoid air cells: Clear. Visualized orbits: Bilateral aphakia Cervical spine: Fracture: None. Osseous structures: Disc space narrowing with endplate sclerosis and anterior osteophytosis at C5-C7. Vertebral alignment: Within normal limits. Spinal canal/Neural Foramina: No evidence of significant spinal canal narrowing. No evidence for sign ificant neural foraminal stenosis. Neck soft tissues: Prevertebral soft tissues are within normal limits. Other: The airway is patent. The lung apices are clear. IMPRESSION: Motion degraded examination. 1. No gross evidence for an acute intracranial process. 2. Nonspecific white matter changes, likely secondary to chronic small vessel ischemic disease. 3. Postsurgical changes within the left cerebellum. 4. No evidence of cervical spine fracture. 5. Mild multilevel degenerative disc disease. [facility], , 01/10/2024 12:13 PM
--- NOTE | 2024-01-10 13:25 | XR ---
EXAMINATION TYPE: XR chest 2V DATE OF EXAM: 01/10/2024 12:34 PM COMPARISON: Chest radiographs from 01/10/2024 CLINICAL INDICATION: Male, 58 years old with history of altered mental status; TECHNIQUE: XR chest 2V Frontal and lateral views of the chest. FINDINGS: Lungs/Pleura: There is no evidence of pleural effusion, focal consolidation, or pneumothorax. Pulmonary vascularity: Unremarkable. Heart/mediastinum: Cardiomediastinal silhouette is unremarkable. Musculoskeletal: No acute osseous pathology. IMPRESSION: No acute cardiopulmonary disease/process. [facility], , 01/10/2024 1:23 PM
[2024-01-10 15:03] LABS: Appearance,Urine Clear (Clear); Bilirubin,Urine Negative (Negative); Blood,Urine Negative (Negative); Color,Urine Yellow; Glucose,Urine (UA) Negative (Negative); Ketones,Urine 2+ (Negative); Leukocyte Esterase,Urine Negative (Negative); Nitrite,Urine Negative (Negative); PH, Urine 5.5 (5.0-8.0); Protein,Urine Trace (Negative); Specific Gravity,Urine 1.022 (1.001-1.035); Urobilinogen,Urine <2.0 mg/dL (<2.0)
[2024-01-10] MEDS: SODIUM CHLORIDE 0.9% 1,000 ML IV SCH (16:12)
--- NOTE | 2024-01-10 16:37 | P.HPIM ---
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 He presented to the emergency department status post reports of weakness. Patient seen at bedside with daughter at this time. Patient reports he lives at home with his who is currently on vacation and he reports last night while walking to the bathroom his legs became weak like they are going to give out so he lowered himself to the ground. He denies having any dizziness, lightheadedness, loss of consciousness, chest pain, palpitations, or experiencing any numbness in his extremities reports just lower extremity weakness in which she has experienced since undergoing radiation on his spine resulting in nerve damage. Patient reports however after lowering himself to the ground he was unable to get up and he lied on the bathroom floor for over 12 hours until his daughter came over to check on him and called EMS. Patient currently denies having any complaints but does report having some lower back pain while lying on the floor and upon initially getting up but states since com ing to the hospital this has resolved. However during examination and straight leg raises patient did report pain to lower lumbar spine. He denies having any numbness or tingling in his extremities and denies having any focal weakness, saddlebag anesthesias, or experiencing any involuntary loss of bowel or bladder. Upon arrival to our facility, patient underwent evaluation in the emergency department. Vital signs upon arrival show blood pressure 132/84, heart rate 110, respiratory rate 20, temp 98.9 F, and SpO2 of 97% on room air. EKG completed showing normal sinus rhythm at 99 bpm with no significant T wave or ST abnormality noted upon personal review and interpretation. CT head and cervical spine completed. CT head negative for acute intercranial process showing nonspecific white matter changes and postsurgical changes within left cerebellum. CT cervical spine negative showing no evidence of cervical spinal fracture revealing mild multilevel degenerative disc disease. Chest x-ray completed negative for acute cardiopulmonary process. Labs were completed and reviewed. CBC showing elevated hematocrit of 55.4 otherwise no significant abnormalities. BMP showing mild prerenal azotemia with BUN of 23 otherwise normal findings. Coagulation profile normal findings. Blood glucose 85. Liver profile showing elevated ALT of 66 otherwise normal findings. Creatinine kinase was elevated at 597 and troponin was 0.024. Patient admitted under our services with consultation to physical and Occupational Therapy for evaluation. Review of systems: Pertinent positives and negatives as discussed in HPI, a complete review of systems was performed and all other systems are negative. Physical exam: Vital signs reviewed and stable. General: Nontoxic, no distress and appears stated age. Derm: Skin warm and dry, normal coloration for ethnicity. Head: Atraumatic, normocephalic and symmetric. Eyes: EOM's intact, no lid lag, and anicteric sclera Mouth: no lip lesions, mucus membranes moist Cardiovascular: regular rate and rhythm with normal S1S2, no murmur, positive posterior tibial pulses bilaterally, and cap refill < 2 seconds. Lungs: Respirations even, regular, and unlabored on room air. Lungs CTA bilaterally, no rhonchi, no rales, no wheezing, and no accessory muscle usage. Abdominal: soft, nontender to palpation, no guarding, no appreciable organomegaly Ext: ROM intact. No gross muscle atrophy, no edema, no contractures Neuro: Speech clear, face symmetrical and CN II-XII grossly intact with no noted focal neuro deficits Psych: Alert and oriented to person, place, and situation. Able to state year but unable to state date. Appropriate and pleasant affect. Assessment and Plan of Care: Bilateral lower extremity weakness Rhabdomyolysis Prerenal azotemia -Patient reports prolonged downtime on floor greater than 12 hours after lowering himself to the ground and unable to get self up independently. -Patient received 1 L bolus 0.9% normal saline and we will continue with gentle IV fluid hydration with 0.9% normal saline at 100 cc/h for an additional 24 hours. -Order placed for CT lumbar spine as patient reports positive lumbar spine pain with straight leg raises and was unable to stand up secondary to reports of bilateral lower extremity weakness. -Consult placed to physical and Occupational Therapy. -Fall precautions in place. History of cancer/myeloma of brain and spine History of glioma status postcraniotomy with tumor resection -Patient reports completing last round of chemotherapy on September currently on Keytruda and radiation therapy. -Continue Decadron 1 mg daily and acyclovir 400 mg nightly. History of recurrent DVTs -Continue Eliquis 5 mg twice daily, Hypertension -Continue daily medication regimen with losartan 25 mg nightly. Hyperlipidemia -Continue rosuvastatin 10 mg nightly. BPH -Continue Flomax 0.8 mg nightly. Data and imaging reviewed: -As stated above in HPI. CODE STATUS: Full code DVT prophylaxis: Eliquis Anticipated discharge date: Pending clinical course Anticipated discharge place: Pending clinical course and evaluation by PT/OT Patient was seen independently by Nurse Practitioner. This document was prepared using [employer] dictation software. Please allow for errors in outside maintenance worker while rare they do occur. Carlitos Oliver NP rendered care for this patient independently, reviewed the findings and plan as documented in the note above and agree with plan. I did not physically speak with or examine the patient on this date. Past Medical History Past Medical History: Cancer, Deep Vein Thrombosis (DVT), GERD/Reflux, Hypertension, Prostate Disorder Additional Past Medical History / Comment(s): Brain and spine cancer on oral chemo. left vocal cord paralysis, some issues with swallowing per . History of Any Multi-Drug Resistant Organisms: None Reported Additional Past Surgical History / Comment(s): colonoscopy, brain and spine surgery. vasectomy and reversal. Past Anesthesia/Blood Transfusion Reactions: Family History of Problems w/ Anesthesia Additional Past Anesthesia/Blood Transfusion Reaction / Comment(s): mom n/v Smoking Status: Never smoker - Past Family History Father Family Medical History: Coronary Artery Disease (CAD) Medications and Allergies Home Medications Medication Instructions Recorded Confirmed Type Acyclovir [Zovirax] 400 mg PO HS 12/17/22 01/10/24 History Apixaban [Eliquis] 5 mg PO BID 12/17/22 01/10/24 History Gabapentin [Neurontin] 100 mg PO BID 12/17/22 01/10/24 History Omeprazole 20 mg PO DAILY 12/17/22 01/10/24 History Tamsulosin HCl [Flomax] 0.8 mg PO HS 12/17/22 01/10/24 History dexAMETHasone 1 mg PO DAILY 12/17/22 01/10/24 History Furosemide [Lasix] 40 mg PO DAILY 01/10/24 01/10/24 History Losartan [Cozaar] 25 mg PO HS 01/10/24 01/10/24 History Mirtazapine [Remeron] 15 mg PO HS 01/10/24 01/10/24 History Pembrolizumab [Keytruda] 1 dose IV Q42D 01/10/24 01/10/24 History Potassium Chloride [Klor-Con M10] 10 meq PO DAILY 01/10/24 01/10/24 History Rosuvastatin [Crestor] 10 mg PO HS 01/10/24 01/10/24 History Sennosides [Senokot] 8.6 mg PO DAILY 01/10/24 01/10/24 History Testosterone Cypionate 100 mg IM MOTH 01/10/24 01/10/24 History [Depo-Testosterone] Allergies Allergy/AdvReac Type Severity Reaction Status Date / Time ibuprofen [From Motrin] AdvReac "stomach Verified 01/10/24 15:12 bleed" Physical Exam Vitals: Vital Signs Temp Pulse Resp BP Pulse Ox 01/10/24 14:00 108 H 18 132/95 98 01/10/24 13:00 107 H 16 131/82 98 01/10/24 11:05 98.9 F 110 H 20 132/84 97 Intake and Output 01/10/24 01/10/24 01/10/24 06:59 14:59 22:59 Other: Weight 136.985 kg Results CBC & Chem 7: 01/10/24 11:25 01/10/24 11:25 Labs: Abnormal Lab Results - Last 24 Hours (Table) 01/10/24 01/10/24 Range/Units 11:25 11:25 RBC 5.96 H (4.30-5.90) m/uL Hct 55.4 H (39.0-53.0) % MCHC 30.7 L (31.0-37.0) g/dL RDW 17.2 H (11.5-15.5) % Lymphocytes # 0.4 L (1.0-4.8) k/uL BUN 23 H (9-20) mg/dL ALT 66 H (4-49) U/L Creatine Kinase 597 H (55-170) U/L
[2024-01-10] MEDS: ACETAMINOPHEN TAB 325 MG TAB PO PRN (16:53)
--- NOTE | 2024-01-10 18:22 | CT ---
EXAMINATION TYPE: CT lumbar spine wo con DATE OF EXAM: 01/10/2024 5:50 PM COMPARISON: None. CLINICAL INDICATION: Male, 58 years old with history of L back pain s/p weakness w/ prolonged down ti me, Lower back pain, weakness. TECHNIQUE: CT of the lumbar spine is performed on a spiral scan at 3 mm thick sections. Reconstructed images are performed in the coronal and sagittal planes. Contrast used: mL of , (none if empty) Oral contrast used: (none if empty) CT DLP: 1110.6 mGycm, Automated exposure control for dose reduction was used. FINDINGS: Prior laminectomy appears to be present T12-L1. No spinal canal stenosis is evident. T12-L1: No focal disc herniation or significant disc bulge is evident. No spinal canal stenosis or neural foraminal stenosis is present. L1-L2: No focal disc herniation or significant disc bulge is evident. No spinal canal stenosis or n eural foraminal stenosis is present. L2: There is an old appearing superior endplate compression deformity of L2 with mild loss of vertebr al body height. L2-L3: No focal disc herniation or significant disc bulge is evident. No spinal canal stenosis or n eural foraminal stenosis is present L3-L4: No focal disc herniation or significant disc bulge is evident. No spinal canal stenosis or n eural foraminal stenosis is present L4-L5: Mild disc bulge has anterior thecal sac contact. Disc space narrowing is present. No spinal c anal stenosis. There is mild to moderate bilateral foraminal narrowing. Mild facet hypertrophy is pre sent. L5-S1: No focal disc herniation or significant disc bulge is evident. No spinal canal stenosis or n eural foraminal stenosis is present Vertebral alignment appears normal. Paraspinal region and posterior soft tissues appear unremarkable. IMPRESSION: 1. Mild disc bulge with anterior thecal sac flattening at L4-5. There is loss of disc height at this level. Mild to moderate bilateral foraminal narrowing is present. 2. Superior endplate compression of L2 appears to be old. 3. Postsurgical changes with laminectomy at T12 and L1. [facility], Workstation: [facility], 01/10/2024 6:20 PM
[2024-01-10] MEDS: ACYCLOVIR 200 MG CAP PO SCH (21:00)
[2024-01-10] MEDS: ATORVASTATIN 20 MG TAB PO SCH (21:00)
[2024-01-10] MEDS: TAMSULOSIN 0.4 MG CAP.ER.24H PO SCH (21:01)
[2024-01-10] MEDS: LOSARTAN 25 MG TAB PO SCH (21:02)
[2024-01-10] MEDS: MIRTAZAPINE 15 MG TAB PO SCH (21:02)
[2024-01-10] MEDS: GABAPENTIN 100 MG CAP PO SCH (21:02)
[2024-01-10] MEDS: APIXABAN 5 MG TAB PO SCH (21:03)
[2024-01-11 08:48] LABS: HCT 50.2 % (39.6-50.0); HGB 15.6 g/dL (13.0-17.0); MCH 28.8 pg (27.0-32.0); MCHC 31.1 g/dL (32.0-37.0); MCV 92.8 FL (80.0-97.0); Mean Platelet Volume 9.3 FL (9.5-12.2); NRBC Per 100 WBC 0 X 10*3/uL (0.00-0.01); Platelet Count 173 X 10*3/uL (140-440); RBC 5.41 X 10*6/uL (4.40-5.60); RDW 18.9 % (11.5-14.5); WBC 6.34 X 10*3/uL (4.50-10.00)
[2024-01-11 08:53] LABS: Magnesium 2.1 mg/dL (1.5-2.4)
[2024-01-11 09:24] LABS: ALT 46 U/L (10-49); AST 40 U/L (14-35); Albumin 3.2 g/dL (3.8-4.9); Albumin/Globulin Ratio 1.78 Ratio (1.60-3.17); Alkaline Phosphatase 43 U/L (41-126); BUN/Creat Ratio 19.75 Ratio (12.00-20.00); Blood Urea Nitrogen 23.7 mg/dL (9.0-27.0); Calcium 8.3 mg/dL (8.7-10.3); Carbon Dioxide 20.4 mmol/L (21.6-31.8); Chloride 106 mmol/L (96-109); Globulin 1.8 g/dL (1.6-3.3); Glucose 66 mg/dL (70-110); Potassium 4.5 mmol/L (3.5-5.5); Sodium 143 mmol/L (135-145); Total Bilirubin 0.7 mg/dL (0.3-1.2)
[2024-01-11] MEDS: SENNOSIDES 8.6 MG TAB PO SCH (09:51)
[2024-01-11] MEDS: dexAMETHasone 2 MG TAB PO SCH (09:51)
[2024-01-11] MEDS: PANTOPRAZOLE 40 MG TABLET PO SCH (09:51)
[2024-01-11] MEDS: HYDROcodone/APAP 5-325MG 1 EACH TAB PO PRN (09:55)
--- NOTE | 2024-01-11 11:11 | P.PN ---
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 He presented to the emergency department status post reports of weakness. Patient seen at bedside with daughter at this time. Patient reports he lives at home with his who is currently on vacation and he reports last night while walking to the bathroom his legs became weak like they are going to give out so he lowered himself to the ground. He denies having any dizziness, lightheadedness, loss of consciousness, chest pain, palpitations, or experiencing any numbness in his extremities reports just lower extremity weakness in which she has experienced since undergoing radiation on his spine resulting in nerve damage. Patient reports however after lowering himself to the ground he was unable to get up and he lied on the bathroom floor for over 12 hours until his daughter came over to check on him and called EMS. Patient currently denies having any complaints but does report having some lower back pain while lying on the floor and upon initially getting up but states since coming to the hospital this has resolved. However during examination and straight leg raises patient did report pain to lower lumbar spine. He denies having any numbness or tingling in his extremities and denies having any focal weakness, saddlebag anesthesias, or experiencing any involuntary loss of bowel or bladder. Upon arrival to our facility, patient underwent evaluation in the emergency department. Vital signs upon arrival show blood pressure 132/84, heart rate 110, respiratory rate 20, temp 98.9 F, and SpO2 of 97% on room air. EKG completed showing normal sinus rhythm at 99 bpm with no significant T wave or ST abnormality noted upon personal review and interpretation. CT head and cervical spine completed. CT head negative for acute intercranial process showing nonspecific white matter changes and postsurgical changes within left cerebellum. CT cervical spine negative showing no evidence of cervical spinal fracture revealing mild multilevel degenerative disc disease. Chest x-ray completed negative for acute cardiopulmonary process. Labs were completed and reviewed. CBC showing elevated hematocrit of 55.4 otherwise no significant abnormalities. BMP showing mild prerenal azotemia with BUN of 23 otherwise normal findings. Coagulation profile normal findings. Blood glucose 85. Liver profile showing elevated ALT of 66 otherwise normal findings. Creatinine kinase was elevated at 597 and troponin was 0.024. Patient admitted under our services with consultation to physical and Occupational Therapy for evaluation. Physical exam: Patient seen and fully evaluated at bedside this morning. His daughter was again at bedside. Patient with significantly worsening confusion this morning. He is only alert to person and confused to time, place, and situation. Speech is clear no other neurodeficits noted. Patient is alert and awake and currently just reports feeling tired. Labs soon resulting showing patient with a morning glucose of 60. Order placed for stat [id number] glucose which resulted at 93. Consult placed to neurology and discussed case with Dr. Coates. Hold off on repeating CT at this time pending his evaluation, as patient will likely need MRI. Vital signs reviewed and stable. General: Nontoxic, no distress and appears stated age. Derm: Skin warm and dry, normal coloration for ethnicity. Head: Atraumatic, normocephalic and symmetric. Eyes: EOM's intact, no lid lag, and anicteric sclera Mouth: no lip lesions, mucus membranes moist Cardiovascular: regular rate and rhythm with normal S1S2, no murmur, positive posterior tibial pulses bilaterally, and cap refill < 2 seconds. Lungs: Respirations even, regular, and unlabored on room air. Lungs CTA bilaterally, no rhonchi, no rales, no wheezing, and no accessory muscle usage. Abdominal: soft, nontender to palpation, no guarding, no appreciable organ omegaly Ext: ROM intact. No gross muscle atrophy, no edema, no contractures Neuro: Speech clear, face symmetrical and CN II-XII grossly intact with no noted focal neuro deficits. GCS 14. Psych: Alert and oriented to person only this morning and confused to time, situation, and place. Patient pleasant and cooperative. Assessment and Plan of Care: Acute Metabolic encephalopathy, unclear etiology Bilateral lower extremity weakness Rhabdomyolysis Hypoglycemia Prerenal azotemia History of cancer/myeloma of brain and spine History of glioma status postcraniotomy with tumor resection -Patient is significantly increased confusion this morning and only alert to person. He is awake and alert and denies having any complaints. He did have episode of hypoglycemia this morning but upon repeat [id number] glucose resulting at 93 and therefore unlikely cause of current increase in confusion. -Consult placed to neurology discussed plan of care with Dr. Coates whom recommended ordering urgent EEG and further orders forthcoming upon examination. -Order placed for neurochecks every 4 hours and fall precautions to remain in place. -Patient received 1 L bolus 0.9% normal saline and we will continue with gentle IV fluid hydration with 0.9% normal saline at 100 cc/h for an additional 24 hours. -Consult placed to physical and Occupational Therapy. -Patient reports completing last round of chemotherapy on September currently on Keytruda and radiation therapy. -Continue Decadron 1 mg daily and acyclovir 400 mg nightly. -CT lumbar spine showing mild disc bulge with anterior thecal sac flattening at L4-L5 with loss of disc height at this level with mild to moderate bilateral foraminal narrowing present, superior endplate compression L2 fracture appears to be old, and postsurgical changes with laminectomy of T12 and L1. -Consult placed to [facility] surgery team for evaluation. History of recurrent DVTs -Continue Eliquis 5 mg twice daily. Hypertension -Continue daily medication regimen with losartan 25 mg nightly. Hyperlipidemia -Continue rosuvastatin 10 mg nightly. BPH -Continue Flomax 0.8 mg nightly. Data and imaging reviewed: -Morning labs reviewed. CBC showing elevated hematocrit of 50.2 otherwise normal findings. BMP showing high anion gap metabolic acidosis with chloride of 106, bicarb of 20.4, and anion gap of 16.60. Blood glucose 66 but upon repeat with [id number] glucose resulting at 93. Magnesium 2.1. Liver profile showing elevated AST of 40 otherwise normal findings. Urinalysis negative for infection. -Vital signs reviewed. Blood pressure 122/80, heart rate 108, respiratory rate 18, temp 98.2 F, and SpO2 of 92% on room air. CODE STATUS: Full code DVT prophylaxis: Eliquis Anticipated discharge date: Pending clinical course Anticipated discharge place: Pending clinical course Patient was seen independently by Nurse Practitioner. This document was prepared using [employer] dictation software. Please allow for errors in gang pusher while rare they do occur. Carlitos Oliver NP rendered care for this patient independently, reviewed the f indings and plan as documented in the note above and agree with plan. I did not physically speak with or examine the patient on this date. Objective - Vital Signs Vital signs: Vital Signs Temp 98.2 F 01/11/24 07:43 Pulse 108 H 01/11/24 07:43 Resp 18 01/11/24 07:43 BP 122/80 01/11/24 07:43 Pulse Ox 93 L 01/11/24 07:43 FiO2 Intake & Output 01/10/24 01/11/24 01/11/24 18:59 06:59 18:59 Output Total 250 Balance -250 Weight 136.985 kg 136.985 kg Output: Urine 250 Other: Voiding Method Urinal # Voids 1 - Labs CBC & Chem 7: 01/11/24 05:09 01/11/24 05:09 Labs: Abnormal Lab Results - Last 24 Hours (Table) 01/10/24 01/10/24 01/10/24 Range/Units 11:25 11:25 14:31 RBC 5.96 H (4.30-5.90) m/uL Hct 55.4 H (39.0-53.0) % MCHC 30.7 L (31.0-37.0) g/dL RDW 17.2 H (11.5-15.5) % Lymphocytes # 0.4 L (1.0-4.8) k/uL BUN 23 H (9-20) mg/dL ALT 66 H (4-49) U/L Creatine Kinase 597 H (55-170) U/L Urine Protein Trace H (Negative) Urine Ketones 2+ H (Negative)
[2024-01-11] MEDS ORDERED: DEXTROSE 50% SYRINGE 50 ML IVP PRN ×2 (11:14)
[2024-01-11 11:22] LABS: Glucose,Whole Blood 93 mg/dL (70-110)
--- NOTE | 2024-01-11 13:00 | P.CNOR ---
History of Present Illness - [facility] Consult date: 01/11/24 Consult reason: other (Bilateral lower extremity weakness) History of present illness: patient is a 58-year-old male who has been admitted to [facility] for further evaluation of bilateral lower extremity weakness. Patient was brought in by EMS on 01/10/2024 after being found on the ground by his daughter, apparently the patient was down for about 12 hours. Patient was brought to the hospital for further evaluation, he underwent multiple imaging and lab test. Patient was admitted under internal medicine. Our orthopedic team was consulted due to the bilateral lower extremity weakness and history of back pain. Patient was evaluated today at bedside, he is resting in his hospital bed. Patient is very pleasant on exam and answers all my questions accurately. Patient has a relatively detailed medical history with regards to his spine and brain. Patient had been evaluated by Dr. Small in 2011 for back pain, imaging test at that time demonstrated an intradural lesion present in the T12/L1 region. Patient was immediately admitted to the hospital and then ended up being transferred down to [facility]. Patient underwent surgery at that time, I do not have his operative reports but from imaging can tell he had a laminectomy/decompression type procedure around the T12L2 region. patient's spine surgeon and also oncologist are at [facility]. Patient also has u ashley a craniotomy for a glioma, and has underwent chemo and radiation. Patient states that since his initial surgeries on both the spine and brain he has noticed lower extremity weakness. Patient admits to the occasional numbness and tingling to the lower extremities. He feels that over the last few weeks the extremities have become weaker. Patient relies on his quite a bit for activities of daily living. Patient denies any involuntary loss of bowel or bladder function. Patient denies any numbness or tingling to the bilateral upper extremities or jose weakness to the bilateral upper extremities at this time. He will alter between a walker and a cane to help with ambulation. Patient admits to vague back pain on occasion but nothing severe. Currently has no headaches, lightheadedness, shortness of breath, chest pain, nausea or vomiting. Review of Systems Constitutional: Reports as per HPI Past Medical History Past Medical History: Cancer, Deep Vein Thrombosis (DVT), GERD/Reflux, Hypert ension, Prostate Disorder Additional Past Medical History / Comment(s): Brain and spine cancer on oral chemo (ended in Dec 2023). left vocal cord paralysis, some issues with s wallowing per . History of Any Multi-Drug Resistant Organisms: None Reported Additional Past Surgical History / Comment(s): colonoscopy, brain and spine surgery. vasectomy and reversal. Past Anesthesia/Blood Transfusion Reactions: Family History of Problems w/ Anesthesia Additional Past Anesthesia/Blood Transfusion Reaction / Comm: mom n/v Past Psychological History: No Psychological Hx Reported Smoking Status: Never smoker Past Alcohol Use History: None Reported Past Drug Use History: None Reported - Past Family History Father Family Medical History: Coronary Artery Disease (CAD) Medications and Allergies Home Medications Medication Instructions Recorded Confirmed Type Acyclovir [Zovirax] 400 mg PO HS 12/17/22 01/10/24 History Apixaban [Eliquis] 5 mg PO BID 12/17/22 01/10/24 History Gabapentin [Neurontin] 100 mg PO BID 12/17/22 01/10/24 History Omeprazole 20 mg PO DAILY 12/17/22 01/10/24 History Tamsulosin HCl [Flomax] 0.8 mg PO HS 12/17/22 01/10/24 History dexAMETHasone 1 mg PO DAILY 12/17/22 01/10/24 History Furosemide [Lasix] 40 mg PO DAILY 01/10/24 01/10/24 History Losartan [Cozaar] 25 mg PO HS 01/10/24 01/10/24 History Mirtazapine [Remeron] 15 mg PO HS 01/10/24 01/10/24 History Pembrolizumab [Keytruda] 1 dose IV Q42D 01/10/24 01/10/24 History Potassium Chloride [Klor-Con M10] 10 meq PO DAILY 01/10/24 01/10/24 History Rosuvastatin [Crestor] 10 mg PO HS 01/10/24 01/10/24 History Sennosides [Senokot] 8.6 mg PO DAILY 01/10/24 01/10/24 History Testosterone Cypionate 100 mg IM MOTH 01/10/24 01/10/24 History [Depo-Testosterone] Allergies Allergy/AdvReac Type Severity Reaction Status Date / Time ibuprofen [From Motrin] AdvReac "stomach Verified 01/10/24 15:12 bleed" Physical Examination Gen: AOx3, NAD VSS stable at this time Integument: no open lesions or sores are visualized throughout the cervical, thoracic or lumbar spine. Patient does have some bruises/scabbing noted on the bilateral upper and lower extremities most noticeably over the prepatellar bursa on the right knee. There is no obvious drainage or significant fluctuance appreciated in that area Palpation: patient demonstrates no significant tenderness with palpation of the paraspinal or midline region of the lower thoracic and lumbar spine ROM: full range of motion in all major muscle groups of the bilateral upper and lower extremities, no focal deficits appreciated Sensory Exam: Senory exam to light touch is intact C5-T1 Senosry exam to light touch is intact L2-S1 Motor: 4+/5 strength appreciated in the bilateral upper extremities with shoulder elevation, shoulder abduction, elbow extension, elbow flexion, wrist extension, wrist flexion, silo operator 4/5 strength appreciate the bilateral lower extremities with hip flexion, knee extension, knee flexion 4-/5 strength appreciate the bilateral lower extremities with plantarflexion, dorsiflexion, EHL, FHL Reflexes: negative Jenn's bilaterally positive clonus bilateral lower extremities, left worse than right Special Test: logroll maneuver reproduces no groin pain bilaterally negative straight leg raise bilaterally at this time Results - Labs Labs: Abnormal Lab Results - Last 24 Hours (Table) 01/10/24 01/11/24 01/11/24 Range/Units 14:31 05:09 05:09 Hct 50.2 H (39.6-50.0) % MCHC 31.1 L (32.0-37.0) g/dL RDW 18.9 H (11.5-14.5) % MPV 9.3 L (9.5-12.2) FL Carbon Dioxide 20.4 L (21.6-31.8) mmol/L Anion Gap 16.60 H (4.00-12.00) mmol/L Glucose 66 L (70-110) mg/dL Calcium 8.3 L (8.7-10.3) mg/dL AST 40 H (14-35) U/L Total Protein 5.0 L (6.2-8.2) g/dL Albumin 3.2 L (3.8-4.9) g/dL Urine Protein Trace H (Negative) Urine Ketones 2+ H (Negative) H & H 01/10/24 01/11/24 Range/Units 11:25 05:09 Hgb 17.0 15.6 (13.0-17.5) gm/dL Hct 55.4 H 50.2 H (39.0-53.0) % Coagulation 01/10/24 Range/Units 11:25 INR 1.0 (<1.2) Result Diagrams: 01/11/24 05:09 01/11/24 05:09 - Diagnostic results CT Scan - lumbar: report reviewed, image reviewed ( report and images reviewed of the lumbar CT scan. Significant spondylitic and degenerative disc changes noted at L4-L5, L5-S1. Endplate changes noted to the L2 vertebral body suggesting compressive deformity. Previous laminectomy changes noted from T10- L2) Assessment and Plan Assessment: Bilateral lower extremity weakness Myelopathy History of intradural lesion, status post laminectomy/decompression T12-L1/L2 L2 endplate changes, chronic compressive deformity History of glioma, status postcraniotomy History of multiple DVTs Other medical comorbidities Plan: I was able to discuss the case, this to include physical exam findings and imaging studies with my attending. Taking into consideration the patient's obvious weakness and myelopathic signs to the lower extremities and his previous cancer/thoracic/lumbar spinal pathology MRI with and without contrast of the thoracolumbar will be ordered for further evaluation Will contact patient's family to aid in ROS/HPI GI and DVT prophylaxis per primary medical service PT/OT recommendations appreciated Other medical specialty recommendations appreciated Monitor bowel and bladder function Further recommendations to follow Time with Patient: Less than 30
--- NOTE | 2024-01-11 14:37 | P.CNNES ---
History of Present Illness Consult date: 01/11/24 Requesting physician: Carlitos Oliver Reason for Consult: increased confusion s/p fall History of Present Illness: This is 58-year-old gentleman with history of glioma status post craniotomy with resection of the tumor, also tumor in the spine, recurrent DVT on Eliquis who presented emergency department because of generalized weakness. Patient stated that this past Tuesday he felt short of breath and felt generalized weakness and he stated that he was so weak that he could not walk and he felt like he he was about to fall but does not recall falling. He does not recalling hitting his head. He said that he was on the floor for a prolonged period time. It seems that the patient was walking to the bathroom and his legs became weak so he lowered himself to the ground. His is on vacation and his daughter checked up on him and it seems that he lied on the bathroom for over 12 hours as a result EMS was called. Patient denies of any bladder or bowel incontinence. He denies any jerking of the any extremities that he recalls. Denies any history of seizure. Denies any history of stroke. He stated that he had the brain resection of his tumor in 2020. He stated that he had tumor in the middle of the spine of his back. 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 Some of the workup during this hospital visit consisted of: Reviewed the lab workup. CK level is 597. CT of the head and CT cervical spine is reported as no gross evidence of acute intracranial process. Nonspecific white matter changes, likely secondary due to chronic small vessel ischemic disease. Postsurgical changes within the left cerebellum. No evidence of cervical spine fracture. Mild multilevel degenerative disc disease. I personally reviewed the CT and there is motion artifact but there is no acute process seen on the CT of the head. CT lumbar is reported as mild disc bulge with anterior thecal sac flattening at L4-L5. There is no loss of disc height at this level. Mild to moderate bilateral foraminal narrowing is present. Superior endplate compression or of the L2 appears to be old. Postsurgical changes with laminectomy at T12 and L1. Review of Systems As per HPI. Past Medical History Past Medical History: Cancer, Deep Vein Thrombosis (DVT), GERD/Reflux, Hypertension, Prostate Disorder Additional Past Medical History / Comment(s): Brain and spine cancer on oral chemo (ended in Dec 2023). left vocal cord paralysis, some issues with swallowing per . History of Any Multi-Drug Resistant Organisms: None Reported Additional Past Surgical History / Comment(s): colonoscopy, brain and spine surgery. vasectomy and reversal. Past Anesthesia/Blood Transfusion Reactions: Family History of Problems w/ Anesthesia Additional Past Anesthesia/Blood Transfusion Reaction / Comment(s): mom n/v Past Psychological History: No Psychological Hx Reported Smoking Status: Never smoker Past Alcohol Use History: None Reported Past Drug Use History: None Reported - Past Family History Father Family Medical History: Coronary Artery Disease (CAD) Medications and Allergies Home Medications Medication Instructions Recorded Confirmed Type Acyclovir [Zovirax] 400 mg PO HS 12/17/22 01/10/24 History Apixaban [Eliquis] 5 mg PO BID 12/17/22 01/10/24 History Gabapentin [Neurontin] 100 mg PO BID 12/17/22 01/10/24 History Omeprazole 20 mg PO DAILY 12/17/22 01/10/24 History Tamsulosin HCl [Flomax] 0.8 mg PO HS 12/17/22 01/10/24 History dexAMETHasone 1 mg PO DAILY 12/17/22 01/10/24 History Furosemide [Lasix] 40 mg PO DAILY 01/10/24 01/10/24 History Losartan [Cozaar] 25 mg PO HS 01/10/24 01/10/24 History Mirtazapine [Remeron] 15 mg PO HS 01/10/24 01/10/24 History Pembrolizumab [Keytruda] 1 dose IV Q42D 01/10/24 01/10/24 History Potassium Chloride [Klor-Con M10] 10 meq PO DAILY 01/10/24 01/10/24 History Rosuvastatin [Crestor] 10 mg PO HS 01/10/24 01/10/24 History Sennosides [Senokot] 8.6 mg PO DAILY 01/10/24 01/10/24 History Testosterone Cypionate 100 mg IM MOTH 01/10/24 01/10/24 History [Depo-Testosterone] Allergies Allergy/AdvReac Type Severity Reaction Status Date / Time ibuprofen [From Motrin] AdvReac "stomach Verified 01/10/24 15:12 bleed" Physical Examination - Vital Signs Vital Signs: Vital Signs Temp Pulse Pulse Resp BP BP Pulse Ox 01/11/24 07:43 98.2 F 108 H 18 122/80 93 L 01/11/24 00:53 98.9 F 115 H 18 145/77 96 01/10/24 23:35 108 H 18 01/10/24 22:48 108 H 136/86 01/10/24 22:19 98.3 F 106 H 18 171/70 95 01/10/24 21:07 98.2 F 102 H 15 135/88 97 01/10/24 19:53 93 14 119/95 97 01/10/24 18:00 98.9 F 92 18 126/79 95 01/10/24 16:00 105 H 18 122/74 98 Intake and Output 01/10/24 01/11/24 01/11/24 22:59 06:59 14:59 Output Total 250 Balance -250 Output: Urine 250 Other: Voiding Method Urinal # Voids 1 Weight 136.985 kg General: Lying in bed and is not in acute distress. Neuro: Patient is awake alert oriented to self place and time. Is following simple commands. No aphasia The pupils are round equal reactive to light. Pupils are round 4 mm bilaterally. Visual mckeon full to confrontation. Extraocular movement patient has horizontal nystagmus looking to the right as well as left. Normal facial sensation to touch. No facial weakness. No dysarthria Motor the strength in the uppers are 5 out of 5. While the lowers had a hard time but had 2-3/5 and had difficulty bilaterally. Sensatio: Normal to touch. Cerebellar: Normal finger to nose Reflex: 2+ throughout. Plantars: Mute. Results - Laboratory Findings CBC and BMP: 01/11/24 05:09 01/11/24 05:09 Abnormal Lab Findings: Abnormal Labs 01/10/24 01/10/24 01/10/24 11:25 11:25 14:31 RBC 5.96 H Hct 55.4 H MCHC 30.7 L RDW 17.2 H MPV Lymphocytes # 0.4 L Carbon Dioxide Anion Gap BUN 23 H Glucose Calcium AST ALT 66 H Creatine Kinase 597 H Total Protein Albumin Urine Protein Trace H Urine Ketones 2+ H 01/11/24 01/11/24 05:09 05:09 RBC Hct 50.2 H MCHC 31.1 L RDW 18.9 H MPV 9.3 L Lymphocytes # Carbon Dioxide 20.4 L Anion Gap 16.60 H BUN Glucose 66 L Calcium 8.3 L AST 40 H ALT Creatine Kinase Total Protein 5.0 L Albumin 3.2 L Urine Protein Urine Ketones Assessment and Plan Assessment: This is a 58-year-old gentleman with history of glioma status post resection of tumor/craniotomy in 2020, myeloma of the spine, 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 Patient stated that he short of breath this past Tuesday and felt generalized weakness so he placed himself on the floor and his daughter came checked up on him and he was on the floor. On examination it seems the patient has significant weakness in the lowers and has nystagmus looking to the right and left. 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 Plan: I spoke with primary team and notified her to pursue with the EEG. I doubt this is seizure. I ordered MRI of the brain with and without Ordered TSH, vitamin B12. Orthopedic surgery team ordered MRI lumbar and thoracic Patient is on dexamethasone 1 mg daily. Patient is on home medication of gabapentin 100 mg twice daily. PT and OT are consulted Will defer the rest of the medical management to primary and other specialist Thank you for the consultation. Time with Patient: Greater than 30
[2024-01-11 15:27] LABS: Glucose,Whole Blood 105 mg/dL (70-110)
[2024-01-11 19:42] LABS: Glucose,Whole Blood 129 mg/dL (70-110)
[2024-01-11 23:52] LABS: Glucose,Whole Blood 98 mg/dL (70-110)
--- NOTE | 2024-01-12 03:46 | EEG ---
ELECTROENCEPHALOGRAM REPORT CLINICAL HISTORY: This is a 58-year-old gentleman with probable episode of fall. The video EEG is obtained to evaluate for seizure epileptiform activity. RELEVANT MEDICATIONS: 1. Gabapentin. 2. Dexamethasone. EEG TYPE: This is a routine 21-channel EEG with video using the 10/20 electrode placement system. DESCRIPTION: Wakefulness and drowsiness are obtained. During awake state, the posterior-dominant rhythm consists of [id number] voltage of 8.5 hertz activity that is well modulated and well sustained. There is no physiological stage 2 sleep architecture. There is no focal slowing. Interictal and ictal is none. ACTIVATION PROCEDURE: Photic stimulation did not evoke a posterior driving response. There is no abnormality during the photic stimulation. Hyperventilation is not performed. CLINICAL INTERPRETATION: This is a normal routine EEG. There is no focal slowing, epileptiform discharges, or seizure on the EEG. A normal routine EEG does not rule out underlying epilepsy. Clinical correlation is recommended. JOAO / KAUR: [id number] /
[2024-01-12 06:26] LABS: Glucose,Whole Blood 87 mg/dL (70-110)
[2024-01-12 09:08] LABS: HCT 46.4 % (39.6-50.0); HGB 14.1 g/dL (13.0-17.0); MCH 28.8 pg (27.0-32.0); MCHC 30.4 g/dL (32.0-37.0); MCV 94.7 FL (80.0-97.0); Mean Platelet Volume 9.9 FL (9.5-12.2); NRBC Per 100 WBC 0 X 10*3/uL (0.00-0.01); Platelet Count 218 X 10*3/uL (140-440); RDW 18.5 % (11.5-14.5); WBC 6.06 X 10*3/uL (4.50-10.00)
[2024-01-12 09:15] LABS: ALT 38 U/L (10-49); AST 26 U/L (14-35); Albumin 3.1 g/dL (3.8-4.9); Albumin/Globulin Ratio 1.82 Ratio (1.60-3.17); Alkaline Phosphatase 40 U/L (41-126); BUN/Creat Ratio 19.71 Ratio (12.00-20.00); Blood Urea Nitrogen 27.6 mg/dL (9.0-27.0); Carbon Dioxide 22.5 mmol/L (21.6-31.8); Chloride 108 mmol/L (96-109); Globulin 1.7 g/dL (1.6-3.3); Glucose 96 mg/dL (70-110); Magnesium 2.3 mg/dL (1.5-2.4); Potassium 5.3 mmol/L (3.5-5.5); Sodium 141 mmol/L (135-145); Total Bilirubin 0.5 mg/dL (0.3-1.2); Total Protein 4.8 g/dL (6.2-8.2)
[2024-01-12 12:13] LABS: Glucose,Whole Blood 97 mg/dL (70-110)
--- NOTE | 2024-01-12 16:09 | P.PN ---
Subjective Progress Note Date: 01/12/24 Principal diagnosis: Bilateral lower extremity weakness Patient was evaluated at bedside today, he is resting comfortably. He did have a brain MRI today that was ordered by neurology. We are still waiting for the thoracic/lumbar MRI, they planning for 01/13/2024. Coronary the physical therapyand to do a lot better ambulating today. Patient continues to have no bowel or bladder continence at this time. We will continue to follow Objective - Vital Signs Vital signs: Vital Signs Temp 98.3 F 01/12/24 15:33 Pulse 92 01/12/24 15:33 Resp 18 01/12/24 15:33 BP 138/73 01/12/24 15:33 Pulse Ox 92 L 01/12/24 15:33 FiO2 Intake & Output 01/11/24 01/12/24 01/12/24 18:59 06:59 18:59 Intake Total 540 100 Output Total 250 150 Balance 290 -50 Intake: Oral 540 100 Output: Urine 250 150 Other: Voiding Method Urinal Urinal Urinal - Exam Gen: AOx3, NAD VSS stable at this time Integument: no open lesions or sores are visualized throughout the cervical, thoracic or lumbar spine. Patient does have some bruises/scabbing noted on the bilateral upper and lower extremities most noticeably over the prepatellar bursa on the right knee. There is no obvious drainage or significant fluctuance appreciated in that area Palpation: patient demonstrates no significant tenderness with palpation of the paraspinal or midline region of the lower thoracic and lumbar spine ROM: full range of motion in all major muscle groups of the bilateral upper and lower extremities, no focal deficits appreciated Sensory Exam: Senory exam to light touch is intact C5-T1 Senosry exam to light touch is intact L2-S1 Motor: 4+/5 strength appreciated in the bilateral upper extremities with shoulder elevation, shoulder abduction, elbow extension, elbow flexion, wrist extension, wrist flexion, 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 machine 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 4/5 strength appreciate the bilateral lower extremities with hip flexion, knee extension, knee flexion 4-/5 strength appreciate the bilateral lower extremities with plantarflexion, dorsiflexion, EHL, FHL Reflexes: negative Jenn's bilaterally positive clonus bilateral lower extremities, left worse than right Special Test: logroll maneuver reproduces no groin pain bilaterally negative straight leg raise bilaterally at this time - Labs CBC & Chem 7: 01/12/24 04:49 12/05/24 04:49 Labs: Abnormal Lab Results - Last 24 Hours (Table) 01/11/24 01/12/24 01/12/24 Range/Units 19:41 04:49 04:49 MCHC 30.4 L (32.0-37.0) g/dL RDW 18.5 H (11.5-14.5) % BUN 27.6 H (9.0-27.0) mg/dL Est GFR (CKD-EPI) 58 L (>=60) POC Glucose (mg/dL) 129 H (70-110) mg/dL Calcium 8.0 L (8.7-10.3) mg/dL Alkaline Phosphatase 40 L (41-126) U/L Total Protein 4.8 L (6.2-8.2) g/dL Albumin 3.1 L (3.8-4.9) g/dL Assessment and Plan Assessment: Bilateral lower extremity weakness Myelopathy History of intradural lesion, status post laminectomy/decompression T12-L1/L2 L2 endplate changes, chronic compressive deformity History of glioma, status postcraniotomy History of multiple DVTs Other medical comorbidities Plan: Awaiting thoracic and lumbar MRI with and without contrast GI and DVT prophylaxis per primary medical service PT/OT recommendations appreciated Other medical specialty recommendations appreciated Monitor bowel and bladder function Further recommendations to follow Time with Patient: Less than 30
--- NOTE | 2024-01-12 16:10 | P.PN ---
Subjective Progress Note Date: 01/12/24 Hospital Course: Patient is a very pleasant 58-year-old male with a past medical history of glioma status post craniotomy with tumor resection, reported cancer/myeloma of brain and spine, recurrent DVTs on anticoagulation with Eliquis, hypertension, BPH, and left vocal cord paralysis secondary to adverse effects of chemotherapy and radiation. He presented to the emergency department status post reports of weakness. Patient seen at bedside with daughter at this time. Patient reports he lives at home with his who is currently on vacation and he reports last night while walking to the bathroom his legs became weak like they are going to give out so he lowered himself to the ground. He denies having any dizziness, lightheadedness, loss of consciousness, chest pain, palpitations, or experiencing any numbness in his extremities reports just lower extremity weakness in which she has experienced since undergoing radiation on his spine resulting in nerve damage. Patient reports however after lowering himself to the ground he was unable to get up and he lied on the bathroom floor for over 12 hours until his daughter came over to check on him and called EMS. Patient currently denies having any complaints but does report having some lower back pain while lying on the floor and upon initially getting up but states since coming to the hospital this has resolved. However during examination and straight leg raises patient did report pain to lower lumbar spine. He denies having any numbness or tingling in his extremities and denies having any focal weakness, saddlebag anesthesias, or experiencing any involuntary loss of bowel or bladder. Upon arrival to our facility, patient underwent evaluation in the emergency department. Vital signs upon arrival show blood pressure 132/84, heart rate 110, respiratory rate 20, temp 98.9 F, and SpO2 of 97% on room air. EKG completed showing normal sinus rhythm at 99 bpm with no significant T wave or ST abnormality noted upon personal review and interpretation. CT head and cervical spine completed. CT head negative for acute intercranial process showing nonspecific white matter changes and postsurgical changes within left cerebellum. CT cervical spine negative showing no evidence of cervical spinal fracture revealing mild multilevel degenerative disc disease. Chest x-ray completed negative for acute cardiopulmonary process. Labs were completed and reviewed. CBC showing elevated hematocrit of 55.4 otherwise no significant abnormalities. BMP showing mild prerenal azotemia with BUN of 23 otherwise normal findings. Coagulation profile normal findings. Blood glucose 85. Liver profile showing elevated ALT of 66 otherwise normal findings. Creatinine kinase was elevated at 597 and troponin was 0.024. Patient admitted under our services with consultation to physical and Occupational Therapy for evaluation. Physical exam: Patient seen and fully evaluated at bedside this morning. Patient was much improved this morning and back to baseline alert to person, place, time, and situation. Currently denies having any complaints or needs. States that he just feels overly tired this morning. Patient reports that he had a rough night and had lots of acid reflux and hiccups but states resolved after sitting upright in bed. Patient scheduled to undergo MRI brain and lumbar spine later today. Vital signs reviewed and stable. General: Nontoxic, no distress and appears stated age. Derm: Skin warm and dry, normal coloration for ethnicity. Head: Atraumatic, normocephalic and symmetric. Eyes: EOM's intact, no lid lag, and anicteric sclera Mouth: no lip lesions, mucus membranes moist Cardiovascular: regular rate and rhythm with normal S1S2, no murmur, positive posterior tibial pulses bilaterally, and cap refill < 2 seconds. Lungs: Respirations even, regular, and unlabored on room air. Lungs CTA bilaterally, no rhonchi, no rales, no wheezing, and no accessory muscle usage. Abdominal: soft, nontender to palpation, no guarding, no appreciable organomegaly Ext: ROM intact. No gross muscle atrophy, no edema, no contractures Neuro: Speech clear, face symmetrical and CN II-XII grossly intact with no noted focal neuro deficits. GCS 14. Psych: Alert and oriented to person, time, and situation. Patient pleasant and cooperative. Assessment and Plan of Care: Acute Metabolic encephalopathy, improved Bilateral lower extremity weakness Rhabdomyolysis Hypoglycemia Prerenal azotemia History of cancer/myeloma of brain and spine History of glioma status postcraniotomy with tumor resection -EEG was completed showing a normal routine EEG with no focal slowing, epileptiform discharges, or seizure activity on EEG. -Neurology following, discussed plan of care with Dr. Coates recommending patient undergo MRI brain. -Continue neurochecks every 4 hours and fall precautions to remain in place. -Physical and Occupational Therapy following. -Patient reports completing last round of chemotherapy on September currently on Keytruda and radiation therapy. -Continue Decadron 1 mg daily and acyclovir 400 mg nightly. -CT lumbar spine showing mild disc bulge with anterior thecal sac flattening at L4-L5 with loss of disc height at this level with mild to moderate bilateral foraminal narrowing present, superior endplate compression L2 fracture appears to be old, and postsurgical changes with laminectomy of T12 and L1. -Orthospine surgery team following and ordered for thoracic and lumbar spine MRI. History of recurrent DVTs -Continue Eliquis 5 mg twice daily. Hypertension -Continue daily medication regimen with losartan 25 mg nightly. Hyperlipidemia -Continue rosuvastatin 10 mg nightly. BPH -Continue Flomax 0.8 mg nightly. Data and imaging reviewed: -Morning labs reviewed. CBC unremarkable. BMP showing mild prerenal azotemia with BUN of 27.6, creatinine of 1.4, GFR 58. Magnesium 2.3. Liver profile showing a low alkaline phosphatase of 40 and an albumin of 3.1. -Vital signs reviewed. Blood pressure 119/77, heart rate 92, respiratory rate 16, temp 97.7 F, and SpO2 of 97% on room air. CODE STATUS: Full code DVT prophylaxis: Eliquis Anticipated discharge date: Pending clinical course Anticipated discharge place: Pending clinical course Patient was seen independently by Nurse Practitioner. This document was prepared using [employer] dictation software. Please allow for errors in academic computing director while rare they do occur. Carlitos Oliver NP rendered care for this patient independently, reviewed the findings and plan as documented in the note above and agree with plan. I did not physically speak with or examine the patient on this date. . Objective - Vital Signs Vital signs: Vital Signs Temp 97.7 F 01/12/24 07:23 Pulse 92 01/12/24 07:23 Resp 16 01/12/24 07:23 BP 119/77 01/12/24 07:23 Pulse Ox 94 L 01/12/24 08:37 FiO2 Intake & Output 01/11/24 01/12/24 01/12/24 18:59 06:59 18:59 Intake Total 540 100 Output Total 250 150 Balance 290 -50 Intake: Oral 540 100 Output: Urine 250 150 Other: Voiding Method Urinal Urinal - Labs CBC & Chem 7: 01/12/24 04:49 01/12/24 04:49 Labs: Abnormal Lab Results - Last 24 Hours (Table) 01/11/24 01/11/24 01/12/24 Range/Units 05:09 19:41 04:49 MCHC 30.4 L (32.0-37.0) g/dL RDW 18.5 H (11.5-14.5) % Carbon Dioxide 20.4 L (21.6-31.8) mmol/L Anion Gap 16.60 H (4.00-12.00) mmol/L BUN (9.0-27.0) mg/dL Est GFR (CKD-EPI) (>=60) Glucose 66 L (70-110) mg/dL POC Glucose (mg/dL) 129 H (70-110) mg/dL Calcium 8.3 L (8.7-10.3) mg/dL AST 40 H (14-35) U/L Alkaline Phosphatase (41-126) U/L Total Protein 5.0 L (6.2-8.2) g/dL Albumin 3.2 L (3.8-4.9) g/dL 01/12/24 Range/Units 04:49 MCHC (32.0-37.0) g/dL RDW (11.5-14.5) % Carbon Dioxide (21.6-31.8) mmol/L Anion Gap (4.00-12.00) mmol/L BUN 27.6 H (9.0-27.0) mg/dL Est GFR (CKD-EPI) 58 L (>=60) Glucose (70-110) mg/dL POC Glucose (mg/dL) (70-110) mg/dL Calcium 8.0 L (8.7-10.3) mg/dL AST (14-35) U/L Alkaline Phosphatase 40 L (41-126) U/L Total Protein 4.8 L (6.2-8.2) g/dL Albumin 3.1 L (3.8-4.9) g/dL
[2024-01-12 17:14] LABS: Glucose,Whole Blood 115 mg/dL (70-110)
--- NOTE | 2024-01-12 18:18 | P.PN ---
Subjective Progress Note Date: 01/12/24 I am following up with the patient and he feels he is doing drastically better today compared to yesterday. He feels he has more strength in the lower extremity. Denies any new neurological issues. Objective - Vital Signs Vital signs: Vital Signs Temp 98.3 F 01/12/24 15:33 Pulse 92 01/12/24 15:33 Resp 18 01/12/24 15:33 BP 138/73 01/12/24 15:33 Pulse Ox 92 L 01/12/24 15:33 FiO2 Intake & Output 01/11/24 01/12/24 01/12/24 18:59 06:59 18:59 Intake Total 540 100 540 Output Total 250 150 Balance 290 -50 540 Intake: Oral 540 100 540 Output: Urine 250 150 Other: Voiding Method Urinal Urinal Urinal - Exam General: Lying in bed and is not in acute distress. Neuro: Patient is awake alert oriented to self place and time. Is following simple commands. No aphasia The pupils are round equal reactive to light. Pupils are round 4 mm bilaterally. Visual mckeon full to confrontation. Extraocular movement patient has horizontal nystagmus looking to the right as well as left. Normal facial sensation to touch. No facial weakness. No dysarthria Motor the strength in the uppers are 5 out of 5. Today in the lowers strength are 5/5 and is much better compared to yesterday. Sensatio: Normal to touch. Cerebellar: Normal finger to nose Reflex: 2+ throughout. Plantars: Mute. Some of the workup during this hospital visit consisted of: Reviewed the lab workup. CK level is 597. CT of the head and CT cervical spine is reported as no gross evidence of acute intracranial process. Nonspecific white matter changes, likely secondary due to chronic small vessel ischemic disease. Postsurgical changes within the left cerebellum. No evidence of cervical spine fracture. Mild multilevel degenerative disc disease. I personally reviewed the CT and there is motion artifact but there is no acute process seen on the CT of the head. CT lumbar is reported as mild disc bulge with anterior thecal sac flattening at L4-L5. There is no loss of disc height at this level. Mild to moderate bilateral foraminal narrowing is present. Superior endplate compression or of the L2 appears to be old. Postsurgical changes with laminectomy at T12 and L1. Routine EEG is normal. - Labs CBC & Chem 7: 01/12/24 04:49 01/12/24 04:49 Labs: Abnormal Lab Results - Last 24 Hours (Table) 01/11/24 01/12/24 01/12/24 Range/Units 19:41 04:49 04:49 MCHC 30.4 L (32.0-37.0) g/dL RDW 18.5 H (11.5-14.5) % BUN 27.6 H (9.0-27.0) mg/dL Est GFR (CKD-EPI) 58 L (>=60) POC Glucose (mg/dL) 129 H (70-110) mg/dL Calcium 8.0 L (8.7-10.3) mg/dL Alkaline Phosphatase 40 L (41-126) U/L Total Protein 4.8 L (6.2-8.2) g/dL Albumin 3.1 L (3.8-4.9) g/dL 01/12/24 Range/Units 17:13 MCHC (32.0-37.0) g/dL RDW (11.5-14.5) % BUN (9.0-27.0) mg/dL Est GFR (CKD-EPI) (>=60) POC Glucose (mg/dL) 115 H (70-110) mg/dL Calcium (8.7-10.3) mg/dL Alkaline Phosphatase (41-126) U/L Total Protein (6.2-8.2) g/dL Albumin (3.8-4.9) g/dL Assessment and Plan Assessment: This is a 58-year-old gentleman with history of glioma status post resection of tumor/craniotomy in 2020, myeloma of the spine, 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 Patient stated that he short of breath this past Tuesday and felt generalized weakness so he placed himself on the floor and his daughter came checked up on him and he was on the floor. On examination it seems the p atient has significant weakness in the lowers and has nystagmus looking to the right and left. 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 Plan: Pending MRI Brain, MRI lumbar and thoracic Pending TSH, vitamin B12. Orthopedic surgery team ordered Patient is on dexamethasone 1 mg daily. Patient is on home medication of gabapentin 100 mg twice daily. PT and OT are consulted Will defer the rest of the medical management to primary and other specialist Time with Patient: Less than 30
--- NOTE | 2024-01-12 18:49 | MR ---
EXAMINATION TYPE: MR brain/lspine wo/w con DATE OF EXAM: 01/12/2024 2:56 PM COMPARISON: MRI brain 09/19/2021, CT brain 01/10/2024 . No interval postsurgical images available. CLINICAL INDICATION: Male, 58 years old with history of nystamgus and weakness in legs. hx of brain tumor, Nystamgus, weakness in legs, hx of brain tumor TECHNIQUE: Multiplanar, multiecho imaging on a 3.0 Katerin magnet is performed through the brain. Stud y is performed within 24 hours of arrival to the hospital.Multiplanar, multiecho imaging on a 3.0 Zoraida la magnet is performed through the knee. IV Contrast: 9 mL Gadobutrol (None, if empty) FINDINGS: The craniovertebral junction is normal. The pituitary is normal. Optic chiasm as visualized appears normal. Diffusion-weighted imaging is performed. No abnormal hyperintensity is present to suggest an acute i ntracranial infarct or acute ischemic change. Patchy to confluent periventricular white matter hyperintensity is present, may be on the basis of ch ronic white matter ischemic changes. This appears to be an interval change. Post radiation changes sh ould be considered, correlate with history. Ventricles and sulci are prominent for the patient age. There is a heterogenous area of enhancement best visualized on the sagittal plain images within the m edial inferior left cerebellum. This measures 2.4 x 1.3 cm. Previous measurement approximately 4.1 x 4.1 cm diameter. Significant adjacent vasogenic edema is not identified. Postsurgical changes appear to be along the inferior left cerebellum. IMPRESSION: 1. Residual versus recurrent inferior anterior left cerebellar mass. This has mild mass effect on the adjacent brain without significant vasogenic edema. This appears to abut the distal left vertebral a rtery within the extra-axial space. 2. Confluent periventricular white matter ischemic-type changes differential could include post radia tion changes. EXAMINATION TYPE: MR brain/lspine wo/w con DATE OF EXAM: 01/12/2024 2:56 PM COMPARISON: 09/21/2021 CLINICAL INDICATION: Male, 58 years old with history of nystamgus and weakness in legs. hx of brain tumor, Nystamgus, weakness in legs, hx of brain tumor TECHNIQUE: Multiplanar, multisequence images of the lumbar spine were acquired. IV Contrast: 9 mL Gadobutrol (None, if empty) FINDINGS: Cord ends at the T12-L1 level. Previous enhancing mass at the T12-L1 level was not identif ied on the current exam L5-S1: No focal disc herniation or significant disc bulge. No spinal canal stenosis. Mild bilateral foraminal narrowing may be present. L4-L5: There is loss of disc height this level. Some residual disc bulge in the central right paracen tral region may be present. Correlate with right L5 radicular symptoms, there may be some contact of the residual disc at the exiting right nerve. No spinal canal stenosis is present. There is mild to m oderate right foraminal narrowing. L3-L4: No focal disc herniation or significant disc bulge. No spinal canal stenosis. Neural foramen are patent. Mild facet hypertrophy is present L2-L3: Central disc bulge has mild anterior thecal sac compression. Some mild subligamentous disc ext ension appears to be present. No AP spinal canal stenosis is present. Neural foramen are patent. L2: There is a superior endplate compression deformity with mild loss of vertebral body height. This appears to be a nonacute compression deformity. L1-L2: No focal disc herniation or significant disc bulge. No spinal canal stenosis. Neural foramen are patent. T12-L1: No focal disc herniation or significant disc bulge. No spinal canal stenosis. Neural forame n are patent. IMPRESSION: 1. Mild subligamentous disc herniation centrally with minimal anterior thecal sac compression L2-3. N o spinal canal stenosis evident. 2. Loss of disc height with residual disc bulge L4-5 central and right paracentral. Correlate with ri ght L5 radicular symptoms. No stenosis is identified. Mild to moderate right foraminal narrowing may be present. 3. Previous enhancing mass at the T12 level not identified on current exam. [facility], , 01/12/2024 6:46 PM
[2024-01-12] MEDS: ALPRAZolam 0.5 MG TAB PO SCH (20:34)
[2024-01-12] MEDS: MELATONIN 3 MG TABLET PO SCH (20:34)
[2024-01-13 00:50] LABS: Glucose,Whole Blood 93 mg/dL (70-110)
[2024-01-13 05:50] LABS: Glucose,Whole Blood 79 mg/dL (70-110)
[2024-01-13 12:14] LABS: Glucose,Whole Blood 116 mg/dL (70-110)
--- NOTE | 2024-01-13 12:14 | P.PN ---
Subjective Progress Note Date: 01/13/24 Principal diagnosis: Bilateral lower extremity weakness Spoke with nursing today regarding patient, patient was down getting the MRI of his thoracic spine. Neurology is following patient, he did have the MRI of the brain yesterday. He also underwent the MRI of his lumbar spine with and without contrast. Images demonstrated no definitive space-occupying mass involving the lumbar spine. He does have some degenerative changes in herniated disc throughout the lumbar spine. Awaiting thoracic MRI results at this time. Objective - Vital Signs Vital signs: Vital Signs Temp 98 F 01/13/24 07:41 Pulse 95 01/13/24 07:41 Resp 18 01/13/24 07:41 BP 147/82 01/13/24 07:41 Pulse Ox 93 L 01/13/24 07:41 FiO2 Intake & Output 01/12/24 01/13/24 01/13/24 18:59 06:59 18:59 Intake Total 540 1740 240 Output Total 125 Balance 415 1740 240 Intake: Intake, IV Titration 1200 Amount Sodium Chloride 0.9% 1, 1200 000 ml @ 100 mls/hr IV . Q10H RADHA Rx#:[id number] Oral 540 540 240 Output: Urine 125 Other: Voiding Method Urinal Urinal # Voids 3 - Labs CBC & Chem 7: 01/12/24 04:49 01/12/24 04:49 Labs: Abnormal Lab Results - Last 24 Hours (Table) 01/11/24 01/12/24 Range/Units 05:09 17:13 POC Glucose (mg/dL) 115 H (70-110) mg/dL Vitamin B12 1692.0 H (200.0-944.0) pg/mL Assessment and Plan Assessment: Bilateral lower extremity weakness Myelopathy History of intradural lesion, status post laminectomy/decompression T12-L1/L2 L2 endplate changes, chronic compressive deformity History of glioma, status postcraniotomy History of multiple DVTs Other medical comorbidities Plan: Awaiting thoracic MRI with and without contrast MRI of the lumbar spine with and without contrast will be reviewed with my attending Dr. Small, initial interpretation demonstrates no emergent orthopedic surgical intervention GI and DVT prophylaxis per primary medical service PT/OT recommendations appreciated Other medical specialty recommendations appreciated Monitor bowel and bladder function Further recommendations to follow Time with Patient: Less than 30
--- NOTE | 2024-01-13 14:12 | MR ---
EXAMINATION TYPE: MR thoracic spine wo/w con DATE OF EXAM: 01/13/2024 1:47 PM COMPARISON: 01/10/2024. CLINICAL INDICATION: Male, 58 years old with history of lower extremity weakness, hx of intradural ma ss; PHH, Lower extremity weakness, hx of intradural TECHNIQUE: Multi planar, multi sequence imaging was performed utilizing: T1-weighted, short-tau inver randy recovery and T2-weighted of the thoracic spine. IV Contrast: 9 mL Gadobutrol (None, if empty) FINDINGS: Alignment: Alignment is within normal limits. Vertebral bodies have preserved heights. Spinal cord: Spinal cord is within normal limits for signal. Discs: No evidence of significant spinal canal stenosis or neural foraminal stenosis.. Small osteophyte at T6-T7 and T7-T8, there are small disc protrusions versus osteophytes mildly inden t upon the spinal cord. Spinal cord signal are maintained. No additional defects identified. Osseous structures: High T1/T2 signal in the outer aspect of the vertebral bodies possibly secondary to posttreatment change. No enhancing masses identified. Multilevel disc desiccation is present. No a bnormal bony edema on inversion recovery sequences. Mild osteophyte formation and facet joint arthrop athy. Scattered disc space narrowing. IMPRESSION: 1. Mild degeneration changes spine. Suspected posttreatment changes to the bone marrow fatty replace ment near the posterior elements from the thecal sac. 2. No abnormal postcontrast enhancement. 3. T6-T7 and T7-T8 central osteophyte versus small central disc protrusions mildly indent upon the s vane cord spinal cord signal is maintained. [facility], , 01/13/2024 2:10 PM
--- NOTE | 2024-01-13 15:45 | P.PN ---
Subjective Progress Note Date: 01/13/24 I am following up with the patient and he feels he is to still doing well compared to initial presentation. Denies of any new neurological issues. Denies of any further weakness in the lower extremities. The patient symptoms started after his dexamethasone was weaned down recently. After was weaned down he felt he was getting worse. Objective - Vital Signs Vital signs: Vital Signs Temp 98.4 F 01/13/24 13:04 Pulse 92 01/13/24 13:04 Resp 18 01/13/24 13:04 BP 154/89 01/13/24 13:04 Pulse Ox 93 L 01/13/24 13:04 FiO2 Intake & Output 01/12/24 01/13/24 01/13/24 18:59 06:59 18:59 Intake Total 540 1740 240 Output Total 125 Balance 415 1740 240 Intake: Intake, IV Titration 1200 Amount Sodium Chloride 0.9% 1, 1200 000 ml @ 100 mls/hr IV . Q10H RADHA Rx#:[id number] Oral 540 540 240 Output: Urine 125 Other: Voiding Method Urinal Urinal # Voids 3 - Exam General: Lying in bed and is not in acute distress. Neuro: Patient is awake alert oriented to self place and time. Is following simple commands. No aphasia The pupils are round equal reactive to light. Pupils are round 4 mm bilateral ly. Visual mckeon full to confrontation. Extraocular movement patient has horizontal nystagmus looking to the right as well as left. Normal facial sensation to touch. No facial weakness. No dysarthria Motor the strength in the uppers are 5 out of 5. Today in the lowers strength are 5/5 and is much better compared to yesterday. Sensatio: Normal to touch. Cerebellar: Normal finger to nose Reflex: 2+ throughout. Plantars: Mute. Some of the workup during this hospital visit consisted of: Reviewed the lab workup. CK level is 597. Vitamin B12: 1692 TSH: 1.10 CT of the head and CT cervical spine is reported as no gross evidence of acute intracranial process. Nonspecific white matter changes, likely secondary due to chronic small vessel ischemic disease. Postsurgical changes within the left cerebellum. No evidence of cervical spine fracture. Mild multilevel degenerative disc disease. I personally reviewed the CT and there is motion artifact but there is no acute process seen on the CT of the head. CT lumbar is reported as mild disc bulge with anterior thecal sac flattening at L4-L5. There is no loss of disc height at this level. Mild to moderate bilateral foraminal narrowing is present. Superior endplate compression or of the L2 appears to be old. Postsurgical changes with laminectomy at T12 and L1. Routine EEG is normal. MRI of the brain: Residual versus recurrent inferior anterior left cerebellar mass. This has mild mass effect on the adjacent brain without significant vasogenic edema. This appears to a but distal left vertebral artery within the extra-axial space. Confluent periventricular white matter ischemic type changes differential could include postradiation changes. I personally reviewed MRI and I compared it to the MRI from 2021 and I feel this is residual from prior tumor and not recurrent. MRI of the lumbar spine is reported as mild subligamentous disc herniation centrally with minimal anterior thecal sac compression L2. No spinal canal st enosis evident. Loss of disc height with residual disc bulge L4-L5 central and right paracentral. Correlate with right L5 radicular symptoms. No stenosis is identified. Mild to moderate right foraminal narrowing may be present. Previous enhancing mass at the T12 not identified on current exam. 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 Patient stated that he short of breath this past Tuesday and felt generalized weakness so he placed himself on the floor and his daughter came checked up on him and he was on the floor. On examination it seems the patient has significant weakness in the lowers and has nystagmus looking to the right and left. Bilateral lower extremity paresis with nystagmus looking to the right and left---today strength in lowers are improved: Rule any worsening of the intracranial tumor or new intracranial tumor versus spinal tumor (spinal tumor differential because of lower extremity weakness). Under the brain there is a concern for residual versus recurrent inferior anterior left cerebellar mass and has a mild mass effect without significant vasogenic edema. MRI of the lumbar shows there there is a compression over the L2 with radicular over the right L5 possibly. Possibly this could have been due to the edema and his symptoms could have been exacerbated since his Decadron was weaned down recently. 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 Plan: Reviewed the MRI of the brain and I do not feel there is any enhancement and I feel this is more residual in my opinion Orthopedic surgery team is on board. Patient is on dexamethasone 1 mg daily. Patient is on home medication of gabapentin 100 mg twice daily. Thank MRI of thoracic spine. Primary team consulted oncology team. PT and OT are consulted Will defer the rest of the medical management to primary and other specialist Plan discussed with the primary team nurse practitioner as well as the patient. Time with Patient: Less than 30
[2024-01-13 17:04] LABS: Glucose,Whole Blood 91 mg/dL (70-110)
[2024-01-13] MEDS: dexAMETHasone 4 MG TAB PO SCH (18:03)
--- NOTE | 2024-01-13 18:49 | P.PN ---
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 He presented to the emergency department status post reports of weakness. Patient seen at bedside with daughter at this time. Patient reports he lives at home with his who is currently on vacation and he reports last night while walking to the bathroom his legs became weak like they are going to give out so he lowered himself to the ground. He denies having any dizziness, lightheadedness, loss of consciousness, chest pain, palpitations, or experiencing any numbness in his extremities reports just lower extremity weakness in which she has experienced since undergoing radiation on his spine resulting in nerve damage. Patient reports however after lowering himself to the ground he was unable to get up and he lied on the bathroom floor for over 12 hours until his daughter came over to check on him and called EMS. Patient currently denies having any complaints but does report having some lower back pain while lying on the floor and upon initially getting up but states since coming to the hospital this has resolved. However during examination and straight leg raises patient did report pain to lower lumbar spine. He denies having any numbness or tingling in his extremities and denies having any focal weakness, saddlebag anesthesias, or experiencing any involuntary loss of bowel or bladder. Upon arrival to our facility, patient underwent evaluation in the emergency department. Vital signs upon arrival show blood pressure 132/84, heart rate 110, respiratory rate 20, temp 98.9 F, and SpO2 of 97% on room air. EKG completed showing normal sinus rhythm at 99 bpm with no significant T wave or ST abnormality noted upon personal review and interpretation. CT head and cervical spine completed. CT head negative for acute intercranial process showing nonspecific white matter changes and postsurgical changes within left cerebellum. CT cervical spine negative showing no evidence of cervical spinal fracture revealing mild multilevel degenerative disc disease. Chest x-ray completed negative for acute cardiopulmonary process. Labs were completed and reviewed. CBC showing elevated hematocrit of 55.4 otherwise no significant abnormalities. BMP showing mild prerenal azotemia with BUN of 23 otherwise normal findings. Coagulation profile normal findings. Blood glucose 85. Liver profile showing elevated ALT of 66 otherwise normal findings. Creatinine kinase was elevated at 597 and troponin was 0.024. Patient admitted under our services with consultation to physical and Occupational Therapy for evaluation. Physical exam: Patient seen and fully evaluated at bedside this morning. Patient's mentation remains at baseline this morning. He is alert to person, place, time, and situation. Discussed with patient MRI findings and will attempt to obtain medical records from [facility]. Patient currently denies having any complaints other than reports of feeling just tired. Vital signs reviewed and stable. General: Nontoxic, no distress and appears stated age. Derm: Skin warm and dry, normal coloration for ethnicity. Head: Atraumatic, normocephalic and symmetric. Eyes: EOM's intact, no lid lag, and anicteric sclera Mouth: no lip lesions, mucus membranes moist Cardiovascular: regular rate and rhythm with normal S1S2, no murmur, positive posterior tibial pulses bilaterally, and cap refill < 2 seconds. Lungs: Respirations even, regular, and unlabored on room air. Lungs CTA bilaterally, no rhonchi, no rales, no wheezing, and no accessory muscle usage. Abdominal: soft, nontender to palpation, no guarding, no appreciable organomegaly Ext: ROM intact. No gross muscle atrophy, no edema, no contractures Neuro: Speech clear, face symmetrical and CN II-XII grossly intact with no noted focal neuro deficits. GCS 15. Psych: Alert and oriented to person, time, and situation. Patient pleasant and cooperative. Assessment and Plan of Care: Acute Metabolic encephalopathy, improved Bilateral lower extremity weakness Rhabdomyolysis Hypoglycemia Prerenal azotemia History of cancer/myeloma of brain and spine History of glioma status postcraniotomy with tumor resection -EEG was completed showing a normal routine EEG with no focal slowing, epileptiform discharges, or seizure activity on EEG. -Neurology following, discussed plan of care with Dr. Coates -MRI brain showing residual versus recurrent inferior anterior left cerebellar mass with mild mass effect on the adjacent brain without significant vasogenic edema and confluent periventricular white matter ischemic type changes. -Awaiting medical records from [facility] for comparison of mass. -Consult placed to oncology for evaluation and recommendations. -Continue neurochecks every 4 hours and fall precautions to remain in place. -Physical and Occupational Therapy following. -Patient reports completing last round of chemotherapy in September currently on Keytruda and radiation therapy. -Continue Decadron 1 mg daily and acyclovir 400 mg nightly pending further recommendations from oncology. -CT lumbar spine showing mild disc bulge with anterior thecal sac flattening at L4-L5 with loss of disc height at this level with mild to moderate bilateral foraminal narrowing present, superior endplate compression L2 fracture appears to be old, and postsurgical changes with laminectomy of T12 and L1. -Orthospine surgery team following and ordered for thoracic and lumbar spine MRI, patient scheduled for MRI later today. History of recurrent DVTs -Continue Eliquis 5 mg twice daily. Hypertension -Continue daily medication regimen with losartan 25 mg nightly. Hyperlipidemia -Continue rosuvastatin 10 mg nightly. BPH -Continue Flomax 0.8 mg nightly. Data and imaging reviewed: -Labs reviewed. CBC unremarkable. BMP showing mild prerenal azotemia with BUN of 27.6, creatinine of 1.4, GFR 58. Magnesium 2.3. Liver profile showing a low alkaline phosphatase of 40 and an albumin of 3.1. -Vital signs reviewed. Blood pressure 147/82, heart rate 95, respiratory rate 18, temp 98.0 F, and SpO2 of 90% on room air. -MRI brain showing residual versus recurrent inferior anterior left cerebellar mass with mild mass effect on the adjacent brain without significant vasogenic edema and confluent periventricular white matter ischemic type changes. CODE STATUS: Full code DVT prophylaxis: Eliquis Anticipated discharge date: Pending clinical course Anticipated discharge place: Pending clinical course Patient was seen independently by Nurse Practitioner. This document was prepared using [email or web address] dictation software. Please allow for errors in management retail intern while rare they do occur. Carlitos Oliver NP rendered care for this patient independently, reviewed the findings and plan as documented in the note above and agree with plan. I did not physically speak with or examine the patient on this date. . Objective - Vital Signs Vital signs: Vital Signs Temp 98 F 01/13/24 07:41 Pulse 95 01/13/24 07:41 Resp 18 01/13/24 07:41 BP 147/82 01/13/24 07:41 Pulse Ox 93 L 01/13/24 07:41 FiO2 Intake & Output 01/12/24 01/13/24 01/13/24 18:59 06:59 18:59 Intake Total 540 1740 240 Output Total 125 Balance 415 1740 240 Intake: Intake, IV Titration 1200 Amount Sodium Chloride 0.9% 1, 1200 000 ml @ 100 mls/hr IV . Q10H [facility] Rx#:[id number] Oral 540 540 240 Output: Urine 125 Other: Voiding Method Urinal Urinal # Voids 3 - Labs CBC & Chem 7: 01/12/24 04:49 01/12/24 04:49 Labs: Abnormal Lab Results - Last 24 Hours (Table) 01/11/24 01/12/24 Range/Units 05:09 17:13 POC Glucose (mg/dL) 115 H (70-110) mg/dL Vitamin B12 1692.0 H (200.0-944.0) pg/mL
--- NOTE | 2024-01-13 23:41 | P.CONS ---
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 Patient follows at [facility] with Dr. Cruz. He was seen in October 2021 with complaints of headaches and low back pain x 1 month. X-rays were negative referred and was referred to neurology for further evaluation. MRIs revealed spinal and cerebral mass concerning for malignancy. 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 There was a lower spinal cord mass, and patient underwent laminectomy on 10/12/2021. He was seen by heme-onc and rad onc, he completed Temodar and radiation x 42 days and then continued on Temodar for 5 days once a month as maintenance. Patient reports due to side effects of Temodar he discontinued approximately 3 months ago and has been in observation, and has continued on Keytruda every 6 weeks, last receiving receiving treatment 4 weeks ago. Brain MRI obtained on November 07 2023 which revealed cerebral mass measuring 1.8 cm x 1.4 cm, previously noted at 2.1 x 1.6 cm. Patient last followed up with Dr. Holloway 2 weeks ago. Patient presented to the emergency room for generalized weakness. Patient reports he was having lower extremity weakness and had a lay on the ground till he waited for family to find him. Denies loss of consciousness and fall. Upon admission CT brain and C-spine without contrast showed no evidence for acute intracranial processes. Postsurgical changes within the left cerebellum. No evidence of cervical spine fracture with mild multilevel degenerative disc disease. CT lumbar spine without contrast showed mild disc bulge with anterior thecal sac flattening at L4-5. Mild to moderate bilateral foraminal narrowing present. Superior endplate compression of L2 which appears to be old. Postsurgical changes of the laminectomy at T12 and L1. MRI brain and L-spine with and without contrast showed residual versus recurrent inferior anterior left cerebral mass which measures 2.4 x 1.3 cm. Mild mass effect noted on the adjacent brain without significant vasogenic edema. Appears to be abut to the distal left vertebral artery within the extra axial space. Confluent periventricular white matter ischemic type changes. Labs reviewed, WBC 6.0, hemoglobin 14.1, platelets 218,000, creatinine 1.4, GFR 58, BUN 27.6. UA negative for UTI. At today's visit patient was reporting improvement in symptoms. Denies unilateral weakness, slurred speech and facial droop. Patient is scheduled today for MRI thoracic spine. Patient states 2 to 3 days prior to admission he dose reduced decadron. He states he believed to be at 10 mg daily prior to dose reduction and began 3 mg daily and within 2 to 3 days, he started to experience reported weakness. Review of Systems 10 point ROS is negative except as stated in the HPI Past Medical History Past Medical History: Cancer, Deep Vein Thrombosis (DVT), GERD/Reflux, Hypertension, Prostate Disorder Additional Past Medical History / Comment(s): Brain and spine cancer on oral chemo (ended in Dec 2023). left vocal cord paralysis, some issues with swallowing per . History of Any Multi-Drug Resistant Organisms: None Reported Additional Past Surgical History / Comment(s): colonoscopy, brain and spine surgery. vasectomy and reversal. Past Anesthesia/Blood Transfusion Reactions: Family History of Problems w/ Anesthesia Additional Past Anesthesia/Blood Transfusion Reaction / Comm: mom n/v Past Psychological History: No Psychological Hx Reported Smoking Status: Never smoker Past Alcohol Use History: None Reported Past Drug Use History: None Reported - Past Family History Father Family Medical History: Coronary Artery Disease (CAD) Medications and Allergies Home Medications Medication Instructions Recorded Confirmed Type Acyclovir [Zovirax] 400 mg PO HS 12/17/22 01/10/24 History Apixaban [Eliquis] 5 mg PO BID 12/17/22 01/10/24 History Gabapentin [Neurontin] 100 mg PO BID 12/17/22 01/10/24 History Omeprazole 20 mg PO DAILY 12/17/22 01/10/24 History Tamsulosin HCl [Flomax] 0.8 mg PO HS 12/17/22 01/10/24 History dexAMETHasone 1 mg PO DAILY 12/17/22 01/10/24 History Furosemide [Lasix] 40 mg PO DAILY 01/10/24 01/10/24 History Losartan [Cozaar] 25 mg PO HS 01/10/24 01/10/24 History Mirtazapine [Remeron] 15 mg PO HS 01/10/24 01/10/24 History Pembrolizumab [Keytruda] 1 dose IV Q42D 01/10/24 01/10/24 History Potassium Chloride [Klor-Con M10] 10 meq PO DAILY 01/10/24 01/10/24 History Rosuvastatin [Crestor] 10 mg PO HS 01/10/24 01/10/24 History Sennosides [Senokot] 8.6 mg PO DAILY 01/10/24 01/10/24 History Testosterone Cypionate 100 mg IM MOTH 01/10/24 01/10/24 History [Depo-Testosterone] Allergies Allergy/AdvReac Type Severity Reaction Status Date / Time ibuprofen [From Motrin] AdvReac "stomach Verified 01/10/24 15:12 bleed" Physical Exam Vitals: Vital Signs Temp Pulse Resp BP Pulse Ox 01/13/24 13:04 98.4 F 92 18 154/89 93 L 01/13/24 07:41 98 F 95 18 147/82 93 L 01/13/24 00:45 98.5 F 79 18 155/88 96 01/12/24 19:08 98.9 F 97 18 145/97 93 L 01/12/24 15:33 98.3 F 92 18 138/73 92 L Intake and Output 01/12/24 01/13/24 01/13/24 22:59 06:59 14:59 Intake Total 540 1740 240 Output Total 125 Balance 415 1740 240 Intake: Intake, IV Titration 1200 Amount Sodium Chloride 0.9% 1, 1200 000 ml @ 100 mls/hr IV . Q10H [facility] Rx#:[id number] Oral 540 540 240 Output: Urine 125 Other: Voiding Method Urinal # Voids 3 - Constitutional General appearance: average body habitus, no acute distress - EENT Eyes: anicteric sclerae, EOMI ENT: hearing grossly normal - Respiratory breathing is even and unlabored - Cardiovascular well perfused - Gastrointestinal General gastrointestinal: soft, no tenderness - Integumentary Integumentary: no cyanotic, no jaundiced - Neurologic gait unsteady, using walker - Psychiatric Psychiatric: A&O x's 3 Results CBC & Chem 7: 01/12/24 04:49 01/12/24 04:49 Labs: Abnormal Lab Results - Last 24 Hours (Table) 01/11/24 01/12/24 01/13/24 Range/Units 05:09 17:13 12:10 POC Glucose (mg/dL) 115 H 116 H (70-110) mg/dL Vitamin B12 1692.0 H (200.0-944.0) pg/mL CT Scan - head: report reviewed MRI - head: report reviewed Assessment and Plan (1) Astrocytoma Current Visit: Yes Status: Acute Priority: High Code(s): C71.9 - MALIGNANT NEOPLASM OF BRAIN, UNSPECIFIED SNOMED Code(s): 613102167 (2) Weakness Current Visit: Yes Status: Acute Priority: High Code(s): R53.1 - WEAKNESS SNOMED Code(s): 15226095 Plan: Astrocytoma: Presented to the ER for generalized weakness. Of note he reports 2-3 days prior to sx onset he dose reduced his decadron -Oncology history as dictated in the HPI. Follows with Dr. Cruz at [facility] -Has continued on maintenance keytruda, last receiving tx 4 week ago. Stopped temodar approx 3 months ago. Brain MRI obtained on November 07 2023 showed cerebral mass measuring 1.8 cm x 1.4 cm, previously noted at 2.1 x 1.6 cm. Patient last followed up with Dr. Cruz 2 weeks ago. -On admit MRI brain showed residual versus recurrent inferior anterior left cerebral mass which measures 2.4 x 1.3 cm. Mild mass effect noted on the adjacent brain without significant vasogenic edema. Appears to abut to the distal left vertebral artery within the extra axial space. -Upon review of MRIs, appears brain MRI is showing possible increase in edema rather than disease progression. Recommend increasing decadron to 4mg q6hrs -Patient to f/u with primary oncologist upon discharge for management and further treatment recommendations Doctor attests: I performed a history and physical examination of this patient, developed impression and plan of care. Discussed with dictator. I agree with dictators note, documented as a scribe.
[2024-01-14 00:43] LABS: Glucose,Whole Blood 113 mg/dL (70-110)
[2024-01-14 05:50] LABS: Glucose,Whole Blood 107 mg/dL (70-110)
[2024-01-14 10:05] LABS: HCT 44.7 % (39.6-50.0); HGB 13.9 g/dL (13.0-17.0); MCH 29.1 pg (27.0-32.0); MCHC 31.1 g/dL (32.0-37.0); MCV 93.7 FL (80.0-97.0); Mean Platelet Volume 9.1 FL (9.5-12.2); NRBC Per 100 WBC 0 X 10*3/uL (0.00-0.01); Platelet Count 219 X 10*3/uL (140-440); RBC 4.77 X 10*6/uL (4.40-5.60); RDW 18.1 % (11.5-14.5); WBC 6.06 X 10*3/uL (4.50-10.00)
--- NOTE | 2024-01-14 10:07 | P.PN ---
Subjective Progress Note Date: 01/14/24 Principal diagnosis: Bilateral lower extremity weakness; Myelopathy; History of intradural lesion, status post laminectomy/decompression T12-L1/L2; L2 endplate changes, chronic compressive deformity Patient was seen at bedside this morning lying semirecumbent position on 5 N. medical floor. Patient says he is still having weakness in lower extremities at this time. He says neurology is following and he has been trying to work with PT/OT daily. Patient does note some small improvements in the weakness in lower extremities however some days are better and some days are worse. Patient denies any new orthopedic complaints at this time. Objective - Vital Signs Vital signs: Vital Signs Temp 98.6 F 01/14/24 07:10 Pulse 81 01/14/24 07:10 Resp 19 01/14/24 07:10 BP 163/96 01/14/24 07:10 Pulse Ox 95 01/14/24 07:10 FiO2 Intake & Output 01/13/24 01/14/24 01/14/24 18:59 06:59 18:59 Intake Total 1440 Output Total 300 Balance 1140 Intake: Intake, IV Titration 1200 Amount Sodium Chloride 0.9% 1, 1200 000 ml @ 100 mls/hr IV . Q10H [facility] Rx#:[id number] Oral 240 Output: Urine 300 Other: Voiding Method Toilet Urinal # Voids 2 # Bowel Movements 1 - Exam Gen: AOx3, NAD VSS stable at this time Integument: no open lesions or sores are visualized throughout the cervical, thoracic or lumbar spine. Patient does have some bruises/scabbing noted on the bilateral upper and lower extremities most noticeably over the prepatellar bursa on the right knee. There is no obvious drainage or significant fluctuance appreciated in that area Palpation: patient demonstrates no significant tenderness with palpation of the paraspinal or midline region of the lower thoracic and lumbar spine ROM: full range of motion in all major muscle groups of the bilateral upper and lower extremities, no focal deficits appreciated Sensory Exam: Senory exam to light touch is intact C5-T1 Senosry exam to light touch is intact L2-S1 Motor: 4+/5 strength appreciated in the bilateral upper extremities with shoulder elevation, shoulder abduction, elbow extension, elbow flexion, wrist extension, wrist flexion, director museum or zoo 4/5 strength appreciate the bilateral lower extremities with hip flexion, knee extension, knee flexion 4-/5 strength appreciate the bilateral lower extremities with plantarflexion, dorsiflexion, EHL, FHL Reflexes: negative Jenn's bilaterally positive clonus bilateral lower extremities, left worse than right Special Test: logroll maneuver reproduces no groin pain bilaterally negative straight leg raise bilaterally at this time - Labs CBC & Chem 7: 01/14/24 05:27 01/12/24 04:49 Labs: Abnormal Lab Results - Last 24 Hours (Table) 01/13/24 01/14/24 Range/Units 12:10 00:39 POC Glucose (mg/dL) 116 H 113 H (70-110) mg/dL Assessment and Plan Assessment: Bilateral lower extremity weakness Myelopathy History of intradural lesion, status post laminectomy/decompression T12-L1/L2 L2 endplate changes, chronic compressive deformity History of glioma, status postcraniotomy History of multiple DVTs Other medical comorbidities Plan: 1. Bilateral lower extremity weakness; Myelopathy; History of intradural lesion, status post laminectomy/decompression T12-L1/L2; L2 endplate changes, chronic compressive deformity - MRI of the thoracic spine has been performed and reviewed. MRI report states at T6 to 7 and 78 there is small central disc protrusion versus central osteophyte, however the spinal cord signal is maintained. There is some mild degeneration changes in the thoracic spine. I will discuss the findings of the MRI of thoracic spine and examined my attending, Dr. Small before proceeding with any potential orthopedic intervention. At this time we recommend continued conservative measures with PT/OT and pain medication. We will continue to follow patient during stay in hospital. 2. Appreciate medical and neuro management 3. DVT prophylaxis - Eliquis 4. GI prophylaxis - Protonix 5. PT/OT - weightbearing as our with walker and assistance as needed 6. Pain management - Tylenol; [place]; gabapentin 7. Encourage incentive spirometer use Time with Patient: Less than 30
[2024-01-14 10:27] LABS: ALT 46 U/L (10-49); AST 27 U/L (14-35); Albumin 3.1 g/dL (3.8-4.9); Albumin/Globulin Ratio 1.72 Ratio (1.60-3.17); Alkaline Phosphatase 49 U/L (41-126); BUN/Creat Ratio 14.18 Ratio (12.00-20.00); Blood Urea Nitrogen 15.6 mg/dL (9.0-27.0); Calcium 7.9 mg/dL (8.7-10.3); Carbon Dioxide 17.4 mmol/L (21.6-31.8); Chloride 111 mmol/L (96-109); Globulin 1.8 g/dL (1.6-3.3); Glucose 121 mg/dL (70-110); Potassium 4.8 mmol/L (3.5-5.5); Sodium 141 mmol/L (135-145); Total Bilirubin 0.3 mg/dL (0.3-1.2); Total Protein 4.9 g/dL (6.2-8.2)
--- NOTE | 2024-01-14 12:23 | P.PN ---
Subjective Progress Note Date: 01/14/24 The patient was sleeping but easily arousable. He states that he feels much better since being admitted. He has been out of bed to use the bedside commode, and feels that he is back to baseline. He reports a clear mentation currently. No history of loss of control of bowel or bladder. Objective - Vital Signs Vital signs: Vital Signs Temp 98.6 F 01/14/24 07:10 Pulse 81 01/14/24 08:45 Resp 19 01/14/24 08:45 BP 163/96 01/14/24 07:10 Pulse Ox 95 01/14/24 07:10 FiO2 Intake & Output 01/13/24 01/14/24 01/14/24 18:59 06:59 18:59 Intake Total 1440 240 Output Total 300 700 Balance 1140 -460 Intake: Intake, IV Titration 1200 Amount Sodium Chloride 0.9% 1, 1200 000 ml @ 100 mls/hr IV . Q10H [facility] Rx#:[id number] Oral 240 240 Output: Urine 300 700 Other: Voiding Method Toilet Toilet Urinal Urinal # Voids 2 # Bowel Movements 1 - Constitutional General appearance: Present: no acute distress - EENT Eyes: Present: EOMI ENT: Present: hearing grossly normal, normal oropharynx - Respiratory Respiratory: bilateral: CTA - Cardiovascular Rhythm: regular Heart sounds: normal: S1, S2 - Gastrointestinal General gastrointestinal: Present: normal bowel sounds, soft - Neurologic Neurologic: Present: CNII-XII intact - Musculoskeletal Musculoskeletal: Present: generalized weakness, strength equal bilaterally - Psychiatric Psychiatric: Present: A&O x's 3, appropriate affect - Labs CBC & Chem 7: 01/14/24 05:27 01/14/24 05:27 Labs: Abnormal Lab Results - Last 24 Hours (Table) 01/14/24 01/14/24 01/14/24 Range/Units 00:39 05:27 05:27 MCHC 31.1 L (32.0-37.0) g/dL RDW 18.1 H (11.5-14.5) % MPV 9.1 L (9.5-12.2) [place] Chloride 111 H (96-109) mmol/L Carbon Dioxide 17.4 L (21.6-31.8) mmol/L [place] 12.60 H (4.00-12.00) mmol/L Glucose 121 H (70-110) mg/dL POC Glucose (mg/dL) 113 H (70-110) mg/dL Calcium 7.9 L (8.7-10.3) mg/dL Total Protein 4.9 L (6.2-8.2) g/dL Albumin 3.1 L (3.8-4.9) g/dL Assessment and Plan (1) Weakness Narrative/Plan: On examination today, there does not appear to be any focal deficit. Specifically there is no evidence of lower extremity weakness, or loss of bowel or bladder control. The patient feels much better in terms of overall strength. Therefore the clinical impression of his symptoms being due to increased edema related to his previously treated brain tumor appears to be most likely, given the improvement with increase in steroid dose. -Continue IV steroids. If improvement is maintained, he can be switched to oral steroids tomorrow, and discharged to follow-up with his primary oncologist. Current Visit: Yes Status: Acute Priority: High Code(s): R53.1 - WEAKNESS SNOMED Code(s): 79431835 (2) Altered mental status Narrative/Plan: The patient's mentation appears to be clear currently, since starting on the higher dose of steroids, which supports the above-mentioned clinical impression. Current Visit: Yes Status: Acute Code(s): R41.82 - ALTERED MENTAL STATUS, UNSPECIFIED SNOMED Code(s): 947833299
[2024-01-14 12:24] LABS: Glucose,Whole Blood 122 mg/dL (70-110)
--- NOTE | 2024-01-14 16:36 | P.PN ---
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 He presented to the emergency department status post reports of weakness. Patient seen at bedside with daughter at this time. Patient reports he lives at home with his who is currently on vacation and he reports last night while walking to the bathroom his legs became weak like they are going to give out so he lowered himself to the ground. He denies having any dizziness, lightheadedness, loss of consciousness, chest pain, palpitations, or experiencing any numbness in his extremities reports just lower extremity weakness in which she has experienced since undergoing radiation on his spine resulting in nerve damage. Patient reports however after lowering himself to the ground he was unable to get up and he lied on the bathroom floor for over 12 hours until his daughter came over to check on him and called EMS. Patient currently denies having any complaints but does report having some lower back pain while lying on the floor and upon initially getting up but states since coming to the hospital this has resolved. However during examination and straight leg raises patient did report pain to lower lumbar spine. He denies having any numbness or tingling in his extremities and denies having any focal weakness, saddlebag anesthesias, or experiencing any involuntary loss of bowel or bladder. Upon arrival to our facility, patient underwent evaluation in the emergency department. Vital signs upon arrival show blood pressure 132/84, heart rate 110, respiratory rate 20, temp 98.9 F, and SpO2 of 97% on room air. EKG completed showing normal sinus rhythm at 99 bpm with no significant T wave or ST abnormality noted upon personal review and interpretation. CT head and cervical spine completed. CT head negative for acute intercranial process showing nonspecific white matter changes and postsurgical changes within left cerebellum. CT cervical spine negative showing no evidence of cervical spinal fracture revealing mild multilevel degenerative disc disease. Chest x-ray completed negative for acute cardiopulmonary process. Labs were completed and reviewed. CBC showing elevated hematocrit of 55.4 otherwise no significant abnormalities. BMP showing mild prerenal azotemia with BUN of 23 otherwise normal findings. Coagulation profile normal findings. Blood glucose 85. Liver profile showing elevated ALT of 66 otherwise normal findings. Creatinine kinase was elevated at 597 and troponin was 0.024. Patient admitted under our services with consultation to physical and Occupational Therapy for evaluation. Physical exam: Patient seen and fully evaluated at bedside this morning. Patient's mentation remains improved this morning. His steroid dose was increased from 21 mg daily to 4 mg every 6 hours by oncology. Patient reports slight back pain and continued lower extremity weakness otherwise denies any complaints at this time. Vital signs reviewed and stable. General: Nontoxic, no distress and appears stated age. Derm: Skin warm and dry, normal coloration for ethnicity. Head: Atraumatic, normocephalic and symmetric. Eyes: EOM's intact, no lid lag, and anicteric sclera Mouth: no lip lesions, mucus membranes moist Cardiovascular: regular rate and rhythm with normal S1S2, no murmur, positive posterior tibial pulses bilaterally, and cap refill < 2 seconds. Lungs: Respirations even, regular, and unlabored on room air. Lungs CTA bilaterally, no rhonchi, no rales, no wheezing, and no accessory muscle usage. Abdominal: soft, nontender to palpation, no guarding, no appreciable organomegaly Ext: ROM intact. No gross muscle atrophy, no edema, no contractures Neuro: Speech clear, face symmetrical and CN II-XII grossly intact with no noted focal neuro deficits. GCS 15. Psych: Alert and oriented to person, time, and situation. Patient pleasant and cooperative. Assessment and Plan of Care: Acute Metabolic encephalopathy, continues to improve Bilateral lower extremity weakness Rhabdomyolysis Hypoglycemia Prerenal azotemia History of cancer/myeloma of brain and spine History of glioma status postcraniotomy with tumor resection -EEG was completed showing a normal routine EEG with no focal slowing, epileptiform discharges, or seizure activity on EEG. -Neurology following, discussed plan of care with Dr. Coates -MRI brain showing residual versus recurrent inferior anterior left cerebellar mass with mild mass effect on the adjacent brain without significant vasogenic edema and confluent periventricular white matter ischemic type changes. -Consult placed to oncology for evaluation and recommendations. Oncologist [facility] [place] patient on Decadron 4 mg every 6 hours. -Continue neurochecks every 4 hours and fall precautions to remain in place. -Physical and Occupational Therapy following. -Patient reports completing last round of chemotherapy in September currently on Keytruda and radiation therapy. -Continue acyclovir 400 mg nightly. -CT lumbar spine showing mild disc bulge with anterior thecal sac flattening at L4-L5 with loss of disc height at this level with mild to moderate bilateral foraminal narrowing present, superior endplate compression L2 fracture appears to be old, and postsurgical changes with laminectomy of T12 and L1. -Orthospine surgery team following and recommended conservative management at is time. -MRI thoracic spine showing mild degenerative changes with suspected posttreatment changes to the bone marrow near posterior elements from the thecal sac, T6-T7 and T7-T8 central osteophyte versus small central disc protrusions with mild indent upon the spinal cord. -MRI lumbar spine showing mild subligamentous disc herniation centrally with minimal anterior thecal sac compression of L2, loss of disc height with residual disc bulge at L4-L5 central and right paracentral, mild to moderate right foraminal narrowing, and previous enhancing mass at the T12 level is no longer identified History of recurrent DVTs -Continue Eliquis 5 mg twice daily. Hypertension -Continue daily medication regimen with losartan 25 mg nightly. Hyperlipidemia -Continue rosuvastatin 10 mg nightly. BPH -Continue Flomax 0.8 mg nightly. Data and imaging reviewed: -Labs reviewed. CBC unremarkable. BMP showing high anion gap metabolic acidosis with chloride of 111, bicarb of 17.4, and anion gap of 12.60. Blood glucose 121. Magnesium 2.0. Liver profile normal findings. -Vital signs reviewed. Blood pressure 145/84, heart rate 91, respiratory rate 19, temp 98.1 F, and SpO2 of 94% on room air. -MRI thoracic spine showing mild degenerative changes with suspected post treatment changes to the bone marrow near posterior elements from the thecal sac, T6-T7 and T7-T8 central osteophyte versus small central disc protrusions with mild indent upon the spinal cord. -MRI lumbar spine showing mild subligamentous disc herniation centrally with minimal anterior thecal sac compression of L2, loss of disc height with residual disc bulge at L4-L5 central and right paracentral, mild to moderate right foraminal narrowing, and previous enhancing mass at the T12 level is no longer identified CODE STATUS: Full code DVT prophylaxis: Eliquis Anticipated discharge date: Pending clinical course Anticipated discharge place: Home with homecare versus SNF Patient was seen independently by Nurse Practitioner. This document was prepared using [employer] dictation software. Please allow for errors in parimutuel clerk while rare they do occur. Carlitos Oliver NP rendered care for this patient independently, reviewed the findings and plan as documented in the note above and agree with plan. I did not physically speak with or examine the patient on this date. . Objective - Vital Signs Vital signs: Vital Signs Temp 98.6 F 01/14/24 07:10 Pulse 81 01/14/24 08:45 Resp 19 01/14/24 08:45 BP 163/96 01/14/24 07:10 Pulse Ox 95 01/14/24 07:10 FiO2 Intake & Output 01/13/24 01/14/24 01/14/24 18:59 06:59 18:59 Intake Total 1440 240 Output Total 300 700 Balance 1140 -460 Intake: Intake, IV Titration 1200 Amount Sodium Chloride 0.9% 1, 1200 000 ml @ 100 mls/hr IV . Q10H [facility] Rx#:[id number] Oral 240 240 Output: Urine 300 700 Other: Voiding Method Toilet Toilet Urinal Urinal # Voids 2 # Bowel Movements 1 - Labs CBC & Chem 7: 01/14/24 05:27 01/14/24 05:27 Labs: Abnormal Lab Results - Last 24 Hours (Table) 01/13/24 01/14/24 01/14/24 Range/Units 12:10 00:39 05:27 MCHC 31.1 L (32.0-37.0) g/dL RDW 18.1 H (11.5-14.5) % MPV 9.1 L (9.5-12.2) FL Chloride (96-109) mmol/L Carbon Dioxide (21.6-31.8) mmol/L Anion Gap (4.00-12.00) mmol/L Glucose (70-110) mg/dL POC Glucose (mg/dL) 116 H 113 H (70-110) mg/dL Calcium (8.7-10.3) mg/dL Total Protein (6.2-8.2) g/dL Albumin (3.8-4.9) g/dL 01/14/24 Range/Units 05:27 MCHC (32.0-37.0) g/dL RDW (11.5-14.5) % MPV (9.5-12.2) FL Chloride 111 H (96-109) mmol/L Carbon Dioxide 17.4 L (21.6-31.8) mmol/L Anion Gap 12.60 H (4.00-12.00) mmol/L Glucose 121 H (70-110) mg/dL POC Glucose (mg/dL) (70-110) mg/dL Calcium 7.9 L (8.7-10.3) mg/dL Total Protein 4.9 L (6.2-8.2) g/dL Albumin 3.1 L (3.8-4.9) g/dL
--- NOTE | 2024-01-14 17:14 | P.PN ---
Subjective Progress Note Date: 01/14/24 I am following-up with patient and he feels he continues to be doing better compared to initial presentation. Denies any new neurological issues. Objective - Vital Signs Vital signs: Vital Signs Temp 98.1 F 01/14/24 12:48 Pulse 91 01/14/24 12:48 Resp 19 01/14/24 12:48 BP 145/84 01/14/24 12:48 Pulse Ox 94 L 01/14/24 12:48 FiO2 Intake & Output 01/13/24 01/14/24 01/14/24 18:59 06:59 18:59 Intake Total 1440 240 Output Total 300 700 Balance 1140 -460 Intake: Intake, IV Titration 1200 Amount Sodium Chloride 0.9% 1, 1200 000 ml @ 100 mls/hr IV . Q10H [facility] Rx#:[id number] Oral 240 240 Output: Urine 300 700 Other: Voiding Method Toilet Toilet Urinal Urinal # Voids 2 2 # Bowel Movements 1 - Exam General: Lying in bed and is not in acute distress. Neuro: Patient is awake alert oriented to self place and time. Is following simple commands. No aphasia The pupils are round equal reactive to light. Pupils are round 4 mm bilaterally. Visual mckeon full to confrontation. Extraocular movement patient has horizontal nystagmus looking to the right as well as left. Normal facial sensation to touch. No facial weakness. No dysarthria Motor: Gait is talking small steps walking with therapy. The strength is 5/5 throughout. Sensatio: Normal to touch. Cerebellar: Normal finger to nose Reflex: 2+ throughout. Plantars: Mute. Some of the workup during this hospital visit consisted of: Reviewed the lab workup. CK level is 597. Vitamin B12: 1692 TSH: 1.10 CT of the head and CT cervical spine is reported as no gross evidence of acute intracranial process. Nonspecific white matter changes, likely secondary due to chronic small vessel ischemic disease. Postsurgical changes within the left cerebellum. No evidence of cervical spine fracture. Mild multilevel degenerative disc disease. I personally reviewed the CT and there is motion artifact but there is no acute process seen on the CT of the head. CT lumbar is reported as mild disc bulge with anterior thecal sac flattening at L4-L5. There is no loss of disc height at this level. Mild to moderate bilateral foraminal narrowing is present. Superior endplate compression or of the L2 appears to be old. Postsurgical changes with laminectomy at T12 and L1. Routine EEG is normal. MRI of the brain: Residual versus recurrent inferior anterior left cerebellar mass. This has mild mass effect on the adjacent brain without significant vasogenic edema. This appears to a but distal left vertebral artery within the extra-axial space. Confluent periventricular white matter ischemic type changes differential could include postradiation changes. I personally reviewed MRI and I compared it to the MRI from 2021 and I feel this is residual from prior tumor and not recurrent. MRI of the lumbar spine is reported as mild subligamentous disc herniation centrally with minimal anterior thecal sac compression L2. No spinal canal stenosis evident. Loss of disc height with residual disc bulge L4-L5 central and right paracentral. Correlate with right L5 radicular symptoms. No stenosis is identified. Mild to moderate right foraminal narrowing may be present. Previous enhancing mass at the T12 not identified on current exam. MRI thoracic is reported as mild degeneration changes spine. Suspected posttreatment changes to the bone marrow fatty replacement near the posterior element from the thecal sac. No abnormal postcontrast enhancement. T6-T7 and T7-T8 central osteophyte versus small central canal protrusion mildly indented upon the spinal cord signal is maintained. - Labs CBC & Chem 7: 01/14/24 05:27 01/14/24 05:27 Labs: Abnormal Lab Results - Last 24 Hours (Table) 01/14/24 01/14/24 01/14/24 Range/Units 00:39 05:27 05:27 MCHC 31.1 L (32.0-37.0) g/dL RDW 18.1 H (11.5-14.5) % MPV 9.1 L (9.5-12.2) FL Chloride 111 H (96-109) mmol/L Carbon Dioxide 17.4 L (21.6-31.8) mmol/L Anion Gap 12.60 H (4.00-12.00) mmol/L Glucose 121 H (70-110) mg/dL POC Glucose (mg/dL) 113 H (70-110) mg/dL Calcium 7.9 L (8.7-10.3) mg/dL Total Protein 4.9 L (6.2-8.2) g/dL Albumin 3.1 L (3.8-4.9) g/dL 01/14/24 Range/Units 12:04 MCHC (32.0-37.0) g/dL RDW (11.5-14.5) % MPV (9.5-12.2) FL Chloride (96-109) mmol/L Carbon Dioxide (21.6-31.8) mmol/L Anion Gap (4.00-12.00) mmol/L Glucose (70-110) mg/dL POC Glucose (mg/dL) 122 H (70-110) mg/dL Calcium (8.7-10.3) mg/dL Total Protein (6.2-8.2) g/dL Albumin (3.8-4.9) g/dL Assessment and Plan Assessment: This is a 58-year-old gentleman with history of glioma status post resection of tumor/craniotomy in 2020, myeloma of the spine, 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 Patient stated that he short of breath this past Tuesday and felt generalized weakness so he placed himself on the floor and his daughter came checked up on him and he was on the floor. On examination it seems the patient has significant weakness in the lowers and has nystagmus looking to the right and left. Bilateral lower extremity paresis with nystagmus looking to the right and left---today strength in lowers are improved: Rule any worsening of the intracranial tumor or new intracranial tumor versus spinal tumor (spinal tumor differential because of lower extremity weakness). Under the brain there is a concern for residual versus recurrent inferior anterior left cerebellar mass and has a mild mass effect without significant vasogenic edema. MRI of the lumbar shows there there is a compression over the L2 with radicular over the right L5 possibly. Possibly this could have been due to the edema and his symptoms could have been exacerbated since his Decadron was weaned down recently. Also his weakness could be due to T6-T7 and T7-T8 central osteophyte versus small central canal protrusion mildly indented seen on MRI History of glioma status post resection of the tumor and craniotomy in 2020 History of spinal myeloma Recurrent DVT on Eliquis Underlying history of hypertension History of left vocal cord paralysis secondary to 2 adverse effect of chemo and radiation therapy Underlying history of benign prostate hyperplasia. Plan: Reviewed the MRI of the brain and I do not feel there is any enhancement and I feel this is more residual in my opinion Orthopedic surgery team is on board. Patient is on dexamethasone 1 mg daily. Patient is on home medication of gabapentin 100 mg twice daily. Oncology is on board. PT and OT are consulted Will defer the rest of the medical management to primary and other specialist Will follow-up with patient sporadically. Time with Patient: Less than 30
[2024-01-14 18:14] LABS: Glucose,Whole Blood 126 mg/dL (70-110)
[2024-01-15 00:38] LABS: Glucose,Whole Blood 127 mg/dL (70-110)
[2024-01-15 07:23] LABS: Glucose,Whole Blood 137 mg/dL (70-110)
[2024-01-15 11:12] LABS: Anisocytosis Slight; HCT 51.4 % (39.0-53.0); HGB 15.8 gm/dL (13.0-17.5); Hypochromasia Marked; MCH 29.3 pg (25.0-35.0); MCHC 30.8 g/dL (31.0-37.0); MCV 95.4 fL (80.0-100.0); Platelet Count 261 k/uL (150-450); RBC 5.38 m/uL (4.30-5.90); WBC 14.7 k/uL (3.8-10.6)
[2024-01-15 11:23] LABS: ALT 52 U/L (4-49); AST 37 U/L (17-59); African American GFR (CKD) >90 (>60 ml/min/1.73 sqM); Albumin 3.2 g/dL (3.5-5.0); Albumin/Globulin Ratio 1.4; Alkaline Phosphatase 57 U/L (38-126); Anion Gap 9 mmol/L; Blood Urea Nitrogen 17 mg/dL (9-20); Calcium 8.5 mg/dL (8.4-10.2); Carbon Dioxide 20 mmol/L (22-30); Chloride 110 mmol/L (98-107); Globulin 2.3 g/dL; Glucose 201 mg/dL (74-99); Magnesium 2.4 mg/dL (1.6-2.3); Non-African American GFR(CKD) 90 (>60 ml/min/1.73 sqM); Potassium 4.7 mmol/L (3.5-5.1); Sodium 139 mmol/L (137-145); Total Bilirubin 0.4 mg/dL (0.2-1.3); Total Protein 5.5 g/dL (6.3-8.2)
[2024-01-15 12:43] LABS: Glucose,Whole Blood 139 mg/dL (70-110)
--- NOTE | 2024-01-15 14:00 | P.PN ---
Subjective Progress Note Date: 01/15/24 The patient was awake and alert. He states that he feels well. He again reports further improvement in his lower extremity strength. He states that he has use the bedside commode, as well as the bathroom. He has ambulated both with and without the walker. According to him lower extremity strength is not back to baseline, but has improved significantly compared to 3 days ago. Mentation appears to be overall clear Objective - Vital Signs Vital signs: Vital Signs Temp 98 F 01/15/24 07:39 Pulse 89 01/15/24 08:00 Resp 19 01/15/24 08:00 BP 161/76 01/15/24 07:39 Pulse Ox 93 L 01/15/24 07:39 FiO2 Intake & Output 01/14/24 01/15/24 01/15/24 18:59 06:59 18:59 Intake Total 480 240 Output Total 700 500 Balance -220 -500 240 Intake: Oral 480 240 Output: Urine 700 500 Other: Voiding Method Toilet Toilet Toilet Urinal Urinal Urinal # Voids 3 # Bowel Movements 1 1 - Constitutional General appearance: Present: no acute distress - EENT Eyes: Present: EOMI ENT: Present: hearing grossly normal, normal oropharynx - Respiratory Respiratory: bilateral: CTA - Cardiovascular Rhythm: regular Heart sounds: normal: S1, S2 - Gastrointestinal General gastrointestinal: Present: normal bowel sounds, soft - Integumentary Integumentary: Present: normal - Neurologic Neurologic: Present: CNII-XII intact - Musculoskeletal Musculoskeletal: Present: generalized weakness, right sided weakness (Possible subtly diminished strength compared to left) - Psychiatric Psychiatric: Present: A&O x's 3, appropriate affect - Labs CBC & Chem 7: 01/15/24 10:41 01/15/24 10:41 Labs: Abnormal Lab Results - Last 24 Hours (Table) 01/14/24 01/15/24 01/15/24 Range/Units 18:13 00:33 07:09 WBC (3.8-10.6) k/uL MCHC (31.0-37.0) g/dL RDW (11.5-15.5) % Chloride (98-107) mmol/L Carbon Dioxide (22-30) mmol/L Glucose (74-99) mg/dL POC Glucose (mg/dL) 126 H 127 H 137 H (70-110) mg/dL Magnesium (1.6-2.3) mg/dL ALT (4-49) U/L Total Protein (6.3-8.2) g/dL Albumin (3.5-5.0) g/dL 01/15/24 01/15/24 01/15/24 Range/Units 10:41 10:41 12:16 WBC 14.7 H (3.8-10.6) k/uL MCHC 30.8 L (31.0-37.0) g/dL RDW 17.0 H (11.5-15.5) % Chloride 110 H (98-107) mmol/L Carbon Dioxide 20 L (22-30) mmol/L Glucose 201 H (74-99) mg/dL POC Glucose (mg/dL) 139 H (70-110) mg/dL Magnesium 2.4 H (1.6-2.3) mg/dL ALT 52 H (4-49) U/L Total Protein 5.5 L (6.3-8.2) g/dL Albumin 3.2 L (3.5-5.0) g/dL Assessment and Plan (1) Weakness Narrative/Plan: This has improved significantly, with ongoing progress, with high-dose steroids indicating that this was likely due to increased vasogenic edema. His steroids will be switched to p.o. Current Visit: Yes Status: Acute Priority: High Code(s): R53.1 - WEAKNESS SNOMED Code(s): 18840261 (2) Altered mental status Narrative/Plan: This also appears to have improved with IV steroids. Current Visit: Yes Status: Acute Code(s): R41.82 - ALTERED MENTAL STATUS, UNSPECIFIED SNOMED Code(s): 214621359
--- NOTE | 2024-01-15 14:47 | P.PN ---
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 He presented to the emergency department status post reports of weakness. Patient seen at bedside with daughter at this time. Patient reports he lives at home with his who is currently on vacation and he reports last night while walking to the bathroom his legs became weak like they are going to give out so he lowered himself to the ground. He denies having any dizziness, lightheadedness, loss of consciousness, chest pain, palpitations, or experiencing any numbness in his extremities reports just lower extremity weakness in which she has experienced since undergoing radiation on his spine resulting in nerve damage. Patient reports however after lowering himself to the ground he was unable to get up and he lied on the bathroom floor for over 12 hours until his daughter came over to check on him and called EMS. Patient currently denies having any complaints but does report having some lower back pain while lying on the floor and upon initially getting up but states since coming to the hospital this has resolved. However during examination and straight leg raises patient did report pain to lower lumbar spine. He denies having any numbness or tingling in his extremities and denies having any focal weakness, saddlebag anesthesias, or experiencing any involuntary loss of bowel or bladder. Upon arrival to our facility, patient underwent evaluation in the emergency department. Vital signs upon arrival show blood pressure 132/84, heart rate 110, respiratory rate 20, temp 98.9 F, and SpO2 of 97% on room air. EKG completed showing normal sinus rhythm at 99 bpm with no significant T wave or ST abnormality noted upon personal review and interpretation. CT head and cervical spine completed. CT head negative for acute intercranial process showing nonspecific white matter changes and postsurgical changes within left cerebellum. CT cervical spine negative showing no evidence of cervical spinal fracture revealing mild multilevel degenerative disc disease. Chest x-ray completed negative for acute cardiopulmonary process. Labs were completed and reviewed. CBC showing elevated hematocrit of 55.4 otherwise no significant abnormalities. BMP showing mild prerenal azotemia with BUN of 23 otherwise normal findings. Coagulation profile normal findings. Blood glucose 85. Liver profile showing elevated ALT of 66 otherwise normal findings. Creatinine kinase was elevated at 597 and troponin was 0.024. Patient admitted under our services with consultation to physical and Occupational Therapy for evaluation. EEG was completed showing a normal routine EEG with no focal slowing, epileptiform discharges, or seizure activity on EEG. MRI brain showing residual versus recurrent inferior anterior left cerebellar mass with mild mass effect on the adjacent brain without significant vasogenic edema and confluent periventricular white matter ischemic type changes. CT lumbar spine showing mild disc bulge with anterior thecal sac flattening at L4-L5 with loss of disc height at this level with mild to moderate bilateral foraminal narrowing present, superior endplate compression L2 fracture appears to be old, and postsurgical changes with laminectomy of T12 and L1. [facility] surgery team following and recommended conservative management at this time. MRI thoracic spine showing mild degenerative changes with suspected posttreatment changes to the bone marrow near posterior elements from the thecal sac, T6-T7 and T7-T8 central osteophyte versus small central disc protrusions with mild indent upon the spinal cord. MRI lumbar spine showing mild subligamentous disc herniation centrally with minimal anterior thecal sac compression of L2, loss of disc height with residual disc bulge at L4-L5 central and right paracentral, mild to moderate right foraminal narrowing, and previous enhancing mass at the T12 level is no longer identified. Oncology was consulted increasing steroids to Decadron 4 mg every 6 hours. Physical exam: Patient seen and fully evaluated at bedside this morning. Patient's mentation remains improved this morning. His steroid dose was increased from 21 mg daily to 4 mg every 6 hours by oncology. Patient reports slight back pain and continued lower extremity weakness otherwise denies any complaints at this time. Vital signs reviewed and stable. General: Nontoxic, no distress and appears stated age. Derm: Skin warm and dry, normal coloration for ethnicity. Head: Atraumatic, normocephalic and symmetric. Eyes: EOM's intact, no lid lag, and anicteric sclera Mouth: no lip lesions, mucus membranes moist Cardiovascular: regular rate and rhythm with normal S1S2, no murmur, positive posterior tibial pulses bilaterally, and cap refill < 2 seconds. Lungs: Respirations even, regular, and unlabored on room air. Lungs CTA bilaterally, no rhonchi, no rales, no wheezing, and no accessory muscle usage. Abdominal: soft, nontender to palpation, no guarding, no appreciable organomegaly Ext: ROM intact. No gross muscle atrophy, no edema, no contractures Neuro: Speech clear, face symmetrical and CN II-XII grossly intact with no noted focal neuro deficits. GCS 15. Psych: Alert and oriented to person, time, and situation. Patient pleasant and cooperative. Assessment and Plan of Care: Acute Metabolic encephalopathy, improved Bilateral lower extremity weakness Brain mass, residual versus recurrent History of cancer/myeloma of brain and spine History of glioma status postcraniotomy with tumor resection -Neurology following, discussed plan of care with Dr. Coates -Oncology following. Oncologist recommending continuing patient on oral Decadron 4 mg every 6 hours. -Continue neurochecks every 4 hours and fall precautions to remain in place. -Physical and Occupational Therapy following. -Patient reports completing last round of chemotherapy in September currently on Keytruda and radiation therapy. -Continue acyclovir 400 mg nightly. History of recurrent DVTs -Continue Eliquis 5 mg twice daily. Hypertension -Continue daily medication regimen with losartan 25 mg nightly. Hyperlipidemia -Continue rosuvastatin 10 mg nightly. BPH -Continue Flomax 0.8 mg nightly. Rhabdomyolysis, resolved with IV fluid hydration. Hypoglycemia, isolated episode Prerenal azotemia, resolved with IV fluid hydration. Data and imaging reviewed: -Labs reviewed. CBC showing leukocytosis with WBC count of 14.7. BMP showing non-anion gap metabolic acidosis with chloride of 110, bicarb of 20, and anion gap of 9. Blood glucose 201. Magnesium 2.4. Liver profile showing elevated ALT of 52 otherwise normal findings. Albumin was low at 3.2. -Vital signs reviewed. Blood pressure 161/76, heart rate 89, respiratory rate 19, temp 98.0 F, and SpO2 of 93% on room air. Mentation and lower extremity weakness has improved since being started on high- dose steroids every 6 hours by oncology. However per nursing staff patient castillo skinner requires significant assistance with getting out of bed and ambulation. Patient will likely need SNF placement. Discussed the possibility of inpatient rehab with patient and he is in agreement. Order placed for consult to inpatient rehab for evaluation and possible placement. CODE STATUS: Full code DVT prophylaxis: Eliquis Anticipated discharge date: Pending clinical course, likely within the next 24 to 48 hours pending possible placement in rehab. Anticipated discharge place: Home with homecare versus SNF Patient was seen independently by Nurse Practitioner. This document was prepared using [employer] dictation software. Please allow for errors in copper etcher while rare they do occur. Carlitos Oliver NP rendered care for this patient independently, reviewed the fin dings and plan as documented in the note above and agree with plan. I did not physically speak with or examine the patient on this date. . Objective - Vital Signs Vital signs: Vital Signs Temp 98 F 01/15/24 07:39 Pulse 89 01/15/24 07:39 Resp 19 01/15/24 07:39 BP 161/76 01/15/24 07:39 Pulse Ox 93 L 01/15/24 07:39 FiO2 Intake & Output 01/14/24 01/15/24 01/15/24 18:59 06:59 18:59 Intake Total 480 Output Total 700 500 Balance -220 -500 Intake: Oral 480 Output: Urine 700 500 Other: Voiding Method Toilet Toilet Urinal Urinal # Voids 3 # Bowel Movements 1 1 - Labs CBC & Chem 7: 01/15/24 10:41 01/15/24 10:41 Labs: Abnormal Lab Results - Last 24 Hours (Table) 01/14/24 01/14/24 01/14/24 Range/Units 05:27 05:27 12:04 MCHC 31.1 L (32.0-37.0) g/dL RDW 18.1 H (11.5-14.5) % MPV 9.1 L (9.5-12.2) FL Chloride 111 H (96-109) mmol/L Carbon Dioxide 17.4 L (21.6-31.8) mmol/L Anion Gap 12.60 H (4.00-12.00) mmol/L Glucose 121 H (70-110) mg/dL POC Glucose (mg/dL) 122 H (70-110) mg/dL Calcium 7.9 L (8.7-10.3) mg/dL Total Protein 4.9 L (6.2-8.2) g/dL Albumin 3.1 L (3.8-4.9) g/dL 01/14/24 01/15/24 01/15/24 Range/Units 18:13 00:33 07:09 MCHC (32.0-37.0) g/dL RDW (11.5-14.5) % MPV (9.5-12.2) FL Chloride (96-109) mmol/L Carbon Dioxide (21.6-31.8) mmol/L Anion Gap (4.00-12.00) mmol/L Glucose (70-110) mg/dL POC Glucose (mg/dL) 126 H 127 H 137 H (70-110) mg/dL Calcium (8.7-10.3) mg/dL Total Protein (6.2-8.2) g/dL Albumin (3.8-4.9) g/dL
[2024-01-15 17:22] LABS: Glucose,Whole Blood 162 mg/dL (70-110)
[2024-01-15 23:49] LABS: Glucose,Whole Blood 188 mg/dL (70-110)
[2024-01-16 05:32] LABS: Glucose,Whole Blood 138 mg/dL (70-110)
[2024-01-16 08:40] LABS: Magnesium 2.3 mg/dL (1.5-2.4)
[2024-01-16 08:52] LABS: ALT 60 U/L (10-49); AST 28 U/L (14-35); Albumin 3.6 g/dL (3.8-4.9); Albumin/Globulin Ratio 1.71 Ratio (1.60-3.17); Alkaline Phosphatase 57 U/L (41-126); BUN/Creat Ratio 14.33 Ratio (12.00-20.00); Blood Urea Nitrogen 17.2 mg/dL (9.0-27.0); Calcium 8.3 mg/dL (8.7-10.3); Carbon Dioxide 18.7 mmol/L (21.6-31.8); Chloride 110 mmol/L (96-109); Globulin 2.1 g/dL (1.6-3.3); Glucose 155 mg/dL (70-110); Potassium 4.7 mmol/L (3.5-5.5); Sodium 141 mmol/L (135-145); Total Bilirubin 0.2 mg/dL (0.3-1.2); Total Protein 5.7 g/dL (6.2-8.2)
[2024-01-16 09:33] LABS: HCT 52.9 % (39.6-50.0); HGB 16.2 g/dL (13.0-17.0); MCH 28.5 pg (27.0-32.0); MCHC 30.6 g/dL (32.0-37.0); MCV 93.1 FL (80.0-97.0); Mean Platelet Volume 10.2 FL (9.5-12.2); Platelet Count 322 X 10*3/uL (140-440); RBC 5.68 X 10*6/uL (4.40-5.60); RDW 18.6 % (11.5-14.5); WBC 12.61 X 10*3/uL (4.50-10.00)
--- NOTE | 2024-01-16 09:47 | P.PN ---
Subjective Progress Note Date: 01/16/24 Principal diagnosis: Bilateral lower extremity weakness; Myelopathy; History of intradural lesion, status post laminectomy/decompression T12-L1/L2; L2 endplate changes, chronic compressive deformity Patient was seen at bedside this morning lying semirecumbent position on 5 N. medical floor. Patient says he is still having weakness in lower extremities at this time, does note improvement over the past couple days. He says neurology is following and he has been trying to work with PT/OT daily. Patient denies any new orthopedic complaints at this time. Objective - Vital Signs Vital signs: Vital Signs Temp 98 F 01/16/24 07:49 Pulse 62 01/16/24 07:49 Resp 19 01/16/24 07:49 BP 164/95 01/16/24 07:49 Pulse Ox 96 01/16/24 07:49 FiO2 Intake & Output 01/15/24 01/16/24 01/16/24 18:59 06:59 18:59 Intake Total 1160 Output Total 300 Balance 1160 -300 Intake: Oral 1160 Output: Urine 300 Other: Voiding Method Toilet Urinal Urinal # Voids 3 - Exam Gen: AOx3, NAD VSS stable at this time Integument: no open lesions or sores are visualized throughout the cervical, thoracic or lumbar spine. Patient does have some bruises/scabbing noted on the bilateral upper and lower extremities most noticeably over the prepatellar bursa on the right knee. There is no obvious drainage or significant fluctuance appreciated in that area Palpation: patient demonstrates no significant tenderness with palpation of the paraspinal or midline region of the lower thoracic and lumbar spine ROM: full range of motion in all major muscle groups of the bilateral upper and lower extremities, no focal deficits appreciated Sensory Exam: Senory exam to light touch is intact C5-T1 Senosry exam to light touch is intact L2-S1 Motor: 4+/5 strength appreciated in the bilateral upper extremities with shoulder elevation, shoulder abduction, elbow extension, elbow flexion, wrist extension, wrist flexion, regulatory affairs internship 4/5 strength appreciate the bilateral lower extremities with hip flexion, knee extension, knee flexion 4-/5 strength appreciate the bilateral lower extremities with plantarflexion, dorsiflexion, EHL, FHL Reflexes: negative Jenn's bilaterally positive clonus bilateral lower extremities, left worse than right Special Test: logroll maneuver reproduces no groin pain bilaterally negative straight leg raise bilaterally at this time - Labs CBC & Chem 7: 01/16/24 05:11 01/16/24 05:11 Labs: Abnormal Lab Results - Last 24 Hours (Table) 01/15/24 01/15/24 01/15/24 Range/Units 10:41 10:41 12:16 WBC 14.7 H (3.8-10.6) k/uL RBC (4.40-5.60) X 10*6/uL Hct (39.6-50.0) % MCHC 30.8 L (31.0-37.0) g/dL RDW 17.0 H (11.5-15.5) % NRBC/100 WBC Diff (0.00-0.01) X 10*3/uL Chloride 110 H (98-107) mmol/L Carbon Dioxide 20 L (22-30) mmol/L Anion Gap (4.00-12.00) mmol/L Glucose 201 H (74-99) mg/dL POC Glucose (mg/dL) 139 H (70-110) mg/dL Calcium (8.7-10.3) mg/dL Magnesium 2.4 H (1.6-2.3) mg/dL Total Bilirubin (0.3-1.2) mg/dL ALT 52 H (4-49) U/L Total Protein 5.5 L (6.3-8.2) g/dL Albumin 3.2 L (3.5-5.0) g/dL 01/15/24 01/15/24 01/16/24 Range/Units 17:18 23:41 05:11 WBC 12.61 H (3.8-10.6) k/uL RBC 5.68 H (4.40-5.60) X 10*6/uL Hct 52.9 H (39.6-50.0) % MCHC 30.6 L (31.0-37.0) g/dL RDW 18.6 H (11.5-15.5) % NRBC/100 WBC Diff 0.20 H (0.00-0.01) X 10*3/uL Chloride (98-107) mmol/L Carbon Dioxide (22-30) mmol/L Anion Gap (4.00-12.00) mmol/L Glucose (74-99) mg/dL POC Glucose (mg/dL) 162 H 188 H (70-110) mg/dL Calcium (8.7-10.3) mg/dL Magnesium (1.6-2.3) mg/dL Total Bilirubin (0.3-1.2) mg/dL ALT (4-49) U/L Total Protein (6.3-8.2) g/dL Albumin (3.5-5.0) g/dL 01/16/24 01/16/24 Range/Units 05:11 05:25 WBC (3.8-10.6) k/uL RBC (4.40-5.60) X 10*6/uL Hct (39.6-50.0) % MCHC (31.0-37.0) g/dL RDW (11.5-15.5) % NRBC/100 WBC Diff (0.00-0.01) X 10*3/uL Chloride 110 H (98-107) mmol/L Carbon Dioxide 18.7 L (22-30) mmol/L Anion Gap 12.30 H (4.00-12.00) mmol/L Glucose 155 H (74-99) mg/dL POC Glucose (mg/dL) 138 H (70-110) mg/dL Calcium 8.3 L (8.7-10.3) mg/dL Magnesium (1.6-2.3) mg/dL Total Bilirubin 0.2 L (0.3-1.2) mg/dL ALT 60 H (4-49) U/L Total Protein 5.7 L (6.3-8.2) g/dL Albumin 3.6 L (3.5-5.0) g/dL Assessment and Plan Assessment: Bilateral lower extremity weakness Myelopathy History of intradural lesion, status post laminectomy/decompression T12-L1/L2 L2 endplate changes, chronic compressive deformity History of glioma, status postcraniotomy History of multiple DVTs Other medical comorbidities Plan: 1. Bilateral lower extremity weakness; Myelopathy; History of intradural lesion, status post laminectomy/decompression T12-L1/L2; L2 endplate changes, chronic compressive deformity - MRI of the thoracic spine has been performed and reviewed. MRI report states at T6 to 7 and 78 there is small central disc protrusion versus central osteophyte, however the spinal cord signal is maintained. There is some mild degeneration changes in the thoracic spine. No sugical spine intervention. At this time we recommend continued conservative measures with PT/OT and pain medication. Patient stable from orthopedic standpoint for discharge from hospital. Follow up in outpatient setting with Dr. Small as needed. Ortho-spine signing off. We will defer the rest of the management during the patient's stay to the primary medical team. Please do not hesitate to contact us for any further questions. 2. Appreciate medical and neuro management 3. DVT prophylaxis - Eliquis 4. GI prophylaxis - Protonix 5. PT/OT - weightbearing as our with walker and assistance as needed 6. Pain management - Tylenol; [place]; gabapentin 7. Encourage incentive spirometer use Time with Patient: Less than 30
--- NOTE | 2024-01-16 11:36 | P.CONS ---
History of Present Illness - Reason for Consult Consult date: 01/16/24 rehab recommendations - Chief Complaint debility - History of Present Illness Mr Charles Andrade is a 58 y/o right handed male who lives with his in a home, ramp entry. Most recently, patient has been getting some assistance from his with with ADLs due to increased weakness. He reports on his good days that he does not use AD, but on his "bad days" he uses either a walker or his electric scooter. His is retired and drives. He has additional support with family and friends. He is retired. Patient presented to the hospital on 01/10/24 with complaints of progressive weakness and unable to get up off the floor for 12 + hrs. He was at home alone as was on vacation and he felt his legs were going to give out on him, so he lowered himself to the ground. He has a significant history of brain and spine cancer, on oral chemotherapy and radiation for the spine. CT head negative for acute process, CT C spine with mild multilevel degenerative disease. CT L spine mild disc bulge with anterior thecal sac flattening at L4-5. Superior endplate comrpession of L2 which appears chronic. CK 597. MRI with and without contrast of T/L spine. MRI brain and L-spine with and without contrast showed residual versus recurrent inferior anterior left cerebral mass which measures 2. 4 x 1.3 cm. Mild mass effect noted on the adjacent brain without significant vasogenic edema. Patient was evaluated by therapy on 01/13/24; Mod I/supervision with Dressing, toileting, and bed mobility, ambulation 100 ft with RW. 01/16/24: Patient states he is doing 'ok'. He reports he just finished up with home care at home and was doing exercises at home himself. He feels that he ended up so weak after his steroid had been tapered down outpatient. He denies current HAs, dizziness, CP, SOB, and abdominal pain. He denies issues with bowel and bladder, LBM yesterday. He has no current complaints of pain, denies N/T/B sensations. He reports that his balance did feel off when he first came in to the hospital, reports this is now much better. He wants to return home with his . Review of Systems reviewed, negative unless stated above in HPI Past Medical History Past Medical History: Cancer, Deep Vein Thrombosis (DVT), GERD/Reflux, Hypertension, Prostate Disorder Additional Past Medical History / Comment(s): Brain and spine cancer on oral chemo (ended in Dec 2023). left vocal cord paralysis, some issues with swallowing per . History of Any Multi-Drug Resistant Organisms: None Reported Additional Past Surgical History / Comment(s): colonoscopy, brain and spine surgery. vasectomy and reversal. Past Anesthesia/Blood Transfusion Reactions: Family History of Problems w/ Anesthesia Additional Past Anesthesia/Blood Transfusion Reaction / Comm: mom n/v Past Psychological History: No Psychological Hx Reported Smoking Status: Never smoker Past Alcohol Use History: None Reported Past Drug Use History: None Reported - Past Family History Father Family Medical History: Coronary Artery Disease (CAD) Medications and Allergies Home Medications Medication Instructions Recorded Confirmed Type Acyclovir [Zovirax] 400 mg PO HS 12/17/22 01/10/24 History Apixaban [Eliquis] 5 mg PO BID 12/17/22 01/10/24 History Gabapentin [Neurontin] 100 mg PO BID 12/17/22 01/10/24 History Omeprazole 20 mg PO DAILY 12/17/22 01/10/24 History Tamsulosin HCl [Flomax] 0.8 mg PO HS 12/17/22 01/10/24 History dexAMETHasone 1 mg PO DAILY 12/17/22 01/10/24 History Furosemide [Lasix] 40 mg PO DAILY 01/10/24 01/10/24 History Losartan [Cozaar] 25 mg PO HS 01/10/24 01/10/24 History Mirtazapine [Remeron] 15 mg PO HS 01/10/24 01/10/24 History Pembrolizumab [Keytruda] 1 dose IV Q42D 01/10/24 01/10/24 History Potassium Chloride [Klor-Con M10] 10 meq PO DAILY 01/10/24 01/10/24 History Rosuvastatin [Crestor] 10 mg PO HS 01/10/24 01/10/24 History Sennosides [Senokot] 8.6 mg PO DAILY 01/10/24 01/10/24 History Testosterone Cypionate 100 mg IM MOTH 01/10/24 01/10/24 History [Depo-Testosterone] Allergies Allergy/AdvReac Type Severity Reaction Status Date / Time ibuprofen [From Motrin] AdvReac "stomach Verified 01/10/24 15:12 bleed" Physical Exam Vitals: Vital Signs Temp Pulse Resp BP Pulse Ox 01/16/24 07:49 98 F 62 19 164/95 96 01/16/24 01:56 97.9 F 93 18 120/88 95 01/15/24 19:18 97.9 F 81 20 164/101 92 L 01/15/24 13:59 98.6 F 91 20 158/91 94 L Intake and Output 01/15/24 01/16/24 01/16/24 22:59 06:59 14:59 Intake Total 920 Output Total 300 Balance 920 -300 Intake: Oral 920 Output: Urine 300 Other: Voiding Method Urinal # Voids 3 EXAM; General: WDWN, obese male, laying in bed, NAD Head: scabbing on the top of the head, atraumatic. Eyes: Symmetric Ears: Symmetric. Hearing within normal limits. Mouth: Clear. Cardiac: no acute cardiac distress, Calves supple, non tender, +pedal edema -per patient chronic Lungs: Breathing comfortably on RA. Chest symmetric. Abdomen: Soft, nontender. Extremities: Arthritic changes consistent with age. Neurological: Alert and oriented x 4. Speech is hypophonic but clear and fluent without paraphasic errors Cranial nerves: CN II-XII grossly intact. Sensation: Intact and symmetrical limbs. Musculoskeletal: ROM WFL MMT UE Sh Abd EE EF FABD WE HG Right 5 5 5 5 5 Left 5 5 5 5 5 MMT LE HF KE DF EHL Right 5 5 5 5 Left 5 5 5 5 Reflexes Biceps Triceps Brachioradialis Patella Achilles Babinski Hoffmans Right Left Skin: Skin intact where visible to head, neck, and bilateral upper and lower extremities EXCEPT: scabbing on top of head, right lateral maya scarring Psych: Calm, cooperative Results CBC & Chem 7: 01/16/24 05:11 01/16/24 05:11 Labs: Abnormal Lab Results - Last 24 Hours (Table) 01/15/24 01/15/24 01/15/24 Range/Units 10:41 10:41 12:16 WBC 14.7 H (3.8-10.6) k/uL MCHC 30.8 L (31.0-37.0) g/dL RDW 17.0 H (11.5-15.5) % Chloride 110 H (98-107) mmol/L Carbon Dioxide 20 L (22-30) mmol/L Anion Gap (4.00-12.00) mmol/L Glucose 201 H (74-99) mg/dL POC Glucose (mg/dL) 139 H (70-110) mg/dL Calcium (8.7-10.3) mg/dL Magnesium 2.4 H (1.6-2.3) mg/dL Total Bilirubin (0.3-1.2) mg/dL ALT 52 H (4-49) U/L Total Protein 5.5 L (6.3-8.2) g/dL Albumin 3.2 L (3.5-5.0) g/dL 01/15/24 01/15/24 01/16/24 Range/Units 17:18 23:41 05:11 WBC (3.8-10.6) k/uL MCHC (31.0-37.0) g/dL RDW (11.5-15.5) % Chloride 110 H (98-107) mmol/L Carbon Dioxide 18.7 L (22-30) mmol/L Anion Gap 12.30 H (4.00-12.00) mmol/L Glucose 155 H (74-99) mg/dL POC Glucose (mg/dL) 162 H 188 H (70-110) mg/dL Calcium 8.3 L (8.7-10.3) mg/dL Magnesium (1.6-2.3) mg/dL Total Bilirubin 0.2 L (0.3-1.2) mg/dL ALT 60 H (4-49) U/L Total Protein 5.7 L (6.3-8.2) g/dL Albumin 3.6 L (3.5-5.0) g/dL 01/16/24 Range/Units 05:25 WBC (3.8-10.6) k/uL MCHC (31.0-37.0) g/dL RDW (11.5-15.5) % Chloride (98-107) mmol/L Carbon Dioxide (22-30) mmol/L Anion Gap (4.00-12.00) mmol/L Glucose (74-99) mg/dL POC Glucose (mg/dL) 138 H (70-110) mg/dL Calcium (8.7-10.3) mg/dL Magnesium (1.6-2.3) mg/dL Total Bilirubin (0.3-1.2) mg/dL ALT (4-49) U/L Total Protein (6.3-8.2) g/dL Albumin (3.5-5.0) g/dL Assessment and Plan Assessment: # Rhabdomyolyisis secondary to prolonged time down -therapies -improving # Bilateral LE weakness #Prerenal Azotemia # LE endplate changes, chronic compressive deformity # History of brain and spinal cancer/ myeloma with laminectomy and decompression -was on oral chemotherapy, history of radiation for spine # History of craniotomy with glioma/tumor resection -on decadron and acyclovir #Left vocal cord paralysis # History of recurrent DVT #Comorbidities: GERD, HTN, HLD, prostate disorder #Pain Management -Tylenol 650 mg Q 6 hrs prn, Gabapentin 100 mg BID, Mascot 5/325 mg Q 4 hrs prn -01/15 no pain complaints #DVT Proph -Eliquis 5 mg BID #Your medical dx and management Dispo: Patient has improved with his functional mobility since admission, has a supportive , plan for returning home, he does not want [facility] [place] as he just completed. Patient feels confident in his home exercise plan, agree with plan. patient seen and examined in coordination with Dr Duong. Patient seen and examined in coordination with ROBBIE Pelletier, examined by me; agree with above. Thank you for consulting our services.
[2024-01-16 12:19] LABS: Glucose,Whole Blood 132 mg/dL (70-110)
--- NOTE | 2024-01-16 13:38 | P.PN ---
Subjective Progress Note Date: 01/16/24 No acute events. Reporting improvement in strength, working with PT Objective - Vital Signs Vital signs: Vital Signs Temp 98 F 01/16/24 07:49 Pulse 62 01/16/24 07:49 Resp 19 01/16/24 07:49 BP 164/95 01/16/24 07:49 Pulse Ox 96 01/16/24 07:49 FiO2 Intake & Output 01/15/24 01/16/24 01/16/24 18:59 06:59 18:59 Intake Total 1160 Output Total 300 Balance 1160 -300 Intake: Oral 1160 Output: Urine 300 Other: Voiding Method Toilet Urinal Urinal Urinal # Voids 3 - Constitutional General appearance: Present: average body habitus, no acute distress - EENT ENT: Present: hearing grossly normal - Respiratory Details: breathing is even and unlabored - Cardiovascular Details: skin warm and dry - Integumentary Integumentary: Absent: cyanotic - Psychiatric Psychiatric: Present: A&O x's 3 - Labs CBC & Chem 7: 01/16/24 05:11 01/16/24 05:11 Labs: Abnormal Lab Results - Last 24 Hours (Table) 01/15/24 01/15/24 01/15/24 Range/Units 12:16 17:18 23:41 WBC (4.50-10.00) X 10*3/uL RBC (4.40-5.60) X 10*6/uL Hct (39.6-50.0) % MCHC (32.0-37.0) g/dL RDW (11.5-14.5) % NRBC/100 WBC Diff (0.00-0.01) X 10*3/uL Chloride (96-109) mmol/L Carbon Dioxide (21.6-31.8) mmol/L Anion Gap (4.00-12.00) mmol/L Glucose (70-110) mg/dL POC Glucose (mg/dL) 139 H 162 H 188 H (70-110) mg/dL Calcium (8.7-10.3) mg/dL Total Bilirubin (0.3-1.2) mg/dL ALT (10-49) U/L Total Protein (6.2-8.2) g/dL Albumin (3.8-4.9) g/dL 01/16/24 01/16/24 01/16/24 Range/Units 05:11 05:11 05:25 WBC 12.61 H (4.50-10.00) X 10*3/uL RBC 5.68 H (4.40-5.60) X 10*6/uL Hct 52.9 H (39.6-50.0) % MCHC 30.6 L (32.0-37.0) g/dL RDW 18.6 H (11.5-14.5) % NRBC/100 WBC Diff 0.20 H (0.00-0.01) X 10*3/uL Chloride 110 H (96-109) mmol/L Carbon Dioxide 18.7 L (21.6-31.8) mmol/L Anion Gap 12.30 H (4.00-12.00) mmol/L Glucose 155 H (70-110) mg/dL POC Glucose (mg/dL) 138 H (70-110) mg/dL Calcium 8.3 L (8.7-10.3) mg/dL Total Bilirubin 0.2 L (0.3-1.2) mg/dL ALT 60 H (10-49) U/L Total Protein 5.7 L (6.2-8.2) g/dL Albumin 3.6 L (3.8-4.9) g/dL Assessment and Plan (1) Astrocytoma Current Visit: Yes Status: Acute Priority: High Code(s): C71.9 - MALIGNANT NEOPLASM OF BRAIN, UNSPECIFIED SNOMED Code(s): 420648229 (2) Weakness Current Visit: Yes Status: Acute Priority: High Code(s): R53.1 - WEAKNESS SNOMED Code(s): 88323537 Plan: Astrocytoma: Presented to the ER for generalized weakness. Of note he reports 2-3 days prior to sx onset he dose reduced his decadron -Oncology history as dictated in the HPI. Follows with Dr. Cruz at [facility] -Has continued on maintenance keytruda, last receiving tx 4 week ago. Stopped temodar approx 3 months ago. Brain MRI obtained on November 07 2023 showed cerebral mass measuring 1.8 cm x 1.4 cm, previously noted at 2.1 x 1.6 cm. -On admit MRI brain showed residual versus recurrent inferior anterior left cerebral mass which measures 2.4 x 1.3 cm. Mild mass effect noted on the adjacent brain without significant vasogenic edema. Appears to abut to the distal left vertebral artery within the extra axial space. -Upon review of MRIs, appears brain MRI is showing possible increase in edema rather than disease progression. Decadron 4mg q6hrs started with improvement in overall strength. Therefore the clinical impression of his symptoms being due to increased edema related to his previously treated brain tumor appears to be most likely, given the improvement with increase in steroid dose. -Will decrease decadron 4mg to TID. Patient to f/u with primary oncologist upon discharge for management of decadron taper and further treatment recommendations Altered mental status: The patient's mentation appears to be clear currently, since starting on the higher dose of steroids, which supports the above-mentioned clinical impression.
--- NOTE | 2024-01-16 14:32 | CDI ---
Documentation Clarification Form Date: 01/16/2024 02:12:16 PM From: Zoe Feliciano RN CCDS Phone: [phone] Admit Date: 01/11/2024 04:46:00 PM Patient Name: Charles Andrade Visit Number: [id number] Discharge Date: ATTENTION: The Clinical Documentation Specialists (CDI) and [facility] Coding Staff appreciate your assistance in clarifying documentation. Please respond to the clarification below the line at the bottom and electronically sign. The CDI & [facility] Coding staff will review the response and follow-up if needed. Please note: Queries are made part of the Legal Health Record. If you have any questions, please contact the author of this message via ITS. Doctor: Carlitos Oliver The patients principal diagnosis the diagnosis that was chiefly responsible for the admission - has not been clearly identified and clarification is requested. The patient presented with the following: weakness History/Risk factors: 58 year old male presents to ED for lower extremity weakness. Medical History: BPH, HLD, HTN and Glioma status post craniotomy w/ tumor resection completed last round of chemo in September currently on Keytruda and radiation therapy. 01/09, [facility] Clinical Indicators: Lab findings:01/09 Wbc 7.8, Lymph 0.4, BUN 23, Cr 1.24, ALT 66, Creatine Kinase 597 MRI BRAIN, 01/11: 1.Residual versus recurrent inferior anterior left cerebellar mass.This has mild mass effect on the adjacent brain without significant vasogenic edema. This appears to abut the distal left vertebral artery within the extra-axial space. 2.Confluent periventricular white matter ischemic-type changes differential could include post radiation changes. MRI SPINE, 01/12: 1.Mild degeneration changes spine.Suspected posttreatment changes to the bone marrow fatty replacement near the posterior elements from the thecal sac. 2.No abnormal postcontrast enhancement. 3.T6-T7 and T7-T8 central osteophyte versus small central disc protrusions mildly indent upon the spinal cord spinal cord signal is maintained Vital Signs: 01/09 B/P 132/84; HR 110; Temp 98.9 F Oral; RR 20; [id number]% ra 01/14 Heme Onc: Weakness: This has improved significantly, with ongoing progress, with high dose steroids indicating that this was likely due ot increased vasogenic edema Treatment: 01/09 Neurontin po bid; 01/10 01/12 Hexadrol 1mg PO Daily; 01/12 - 01/15 Hexadrol 4mg PO Q6HR; 01/15 Hexadrol 4mg PO Q8H Consults: Heme Onc see above In your professional opinion, can you please clarify which diagnosis, after study, was the reason chiefly responsible for the admission? [ X ] Vasogenic Edema [ ] Other, please specify [ ] Unable to determine (Template Last Revised: April 2020) MTDD
--- NOTE | 2024-01-16 17:04 | P.PN ---
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 He presented to the emergency department status post reports of weakness. Patient seen at bedside with daughter at this time. Patient reports he lives at home with his who is currently on vacation and he reports last night while walking to the bathroom his legs became weak like they are going to give out so he lowered himself to the ground. He denies having any dizziness, lightheadedness, loss of consciousness, chest pain, palpitations, or experiencing any numbness in his extremities reports just lower extremity weakness in which she has experienced since undergoing radiation on his spine resulting in nerve damage. Patient reports however after lowering himself to the ground he was unable to get up and he lied on the bathroom floor for over 12 hours until his daughter came over to check on him and called EMS. Patient currently denies having any complaints but does report having some lower back pain while lying on the floor and upon initially getting up but states since coming to the hospital this has resolved. However during examination and straight leg raises patient did report pain to lower lumbar spine. He denies having any numbness or tingling in his extremities and denies having any focal weakness, saddlebag anesthesias, or experiencing any involuntary loss of bowel or bladder. Upon arrival to our facility, patient underwent evaluation in the emergency department. Vital signs upon arrival show blood pressure 132/84, heart rate 110, respiratory rate 20, temp 98.9 F, and SpO2 of 97% on room air. EKG completed showing normal sinus rhythm at 99 bpm with no significant T wave or ST abnormality noted upon personal review and interpretation. CT head and cervical spine completed. CT head negative for acute intercranial process showing nonspecific white matter changes and postsurgical changes within left cerebellum. CT cervical spine negative showing no evidence of cervical spinal fracture revealing mild multilevel degenerative disc disease. Chest x-ray completed negative for acute cardiopulmonary process. Labs were completed and reviewed. CBC showing elevated hematocrit of 55.4 otherwise no significant abnormalities. BMP showing mild prerenal azotemia with BUN of 23 otherwise normal findings. Coagulation profile normal findings. Blood glucose 85. Liver profile showing elevated ALT of 66 otherwise normal findings. Creatinine kinase was elevated at 597 and troponin was 0.024. Patient admitted under our services with consultation to physical and Occupational Therapy for evaluation. EEG was completed showing a normal routine EEG with no focal slowing, epileptiform discharges, or seizure activity on EEG. MRI brain showing residual versus recurrent inferior anterior left cerebellar mass with mild mass effect on the adjacent brain without significant vasogenic edema and confluent periventricular white matter ischemic type changes. CT lumbar spine showing mild disc bulge with anterior thecal sac flattening at L4-L5 with loss of disc height at this level with mild to moderate bilateral foraminal narrowing present, superior endplate compression L2 fracture appears to be old, and postsurgical changes with laminectomy of T12 and L1. [facility] surgery team following and recommended conservative management at this time. MRI thoracic spine showing mild degenerative changes with suspected posttreatment changes to the bone marrow near posterior elements from the thecal sac, T6-T7 and T7-T8 central osteophyte versus small central disc protrusions with mild indent upon the spinal cord. MRI lumbar spine showing mild subligamentous disc herniation centrally with minimal anterior thecal sac compression of L2, loss of disc height with residual disc bulge at L4-L5 central and right paracentral, mild to moderate right foraminal narrowing, and previous enhancing mass at the T12 level is no longer identified. Oncology was consulted initially increasing steroids to Decadron 4 mg every 6 hours and decreased today to 4 mg every 8 hours.. Physical exam: Patient seen and fully evaluated at bedside this morning. He was alert to person, place, time, and situation but continues to have brief episodes of confusion. Overall mentation has improved and strength is improving. However patient still requires moderate assistance from lying to sitting, sitting to standing, and supervision/guidance when ambulating with walker. Vital signs reviewed and stable. General: Nontoxic, no distress and appears stated age. Derm: Skin warm and dry, normal coloration for ethnicity. Head: Atraumatic, normocephalic and symmetric. Eyes: EOM's intact, no lid lag, and anicteric sclera Mouth: no lip lesions, mucus membranes moist Cardiovascular: regular rate and rhythm with normal S1S2, no murmur, positive po sterior tibial pulses bilaterally, and cap refill < 2 seconds. Lungs: Respirations even, regular, and unlabored on room air. Lungs CTA bilaterally, no rhonchi, no rales, no wheezing, and no accessory muscle usage. Abdominal: soft, nontender to palpation, no guarding, no appreciable organomegaly Ext: ROM intact. No gross muscle atrophy, no edema, no contractures Neuro: Speech clear, face symmetrical and CN II-XII grossly intact with no noted focal neuro deficits. GCS 15. Psych: Alert and oriented to person, time, and situation. Patient pleasant and cooperative. Assessment and Plan of Care: Acute Metabolic encephalopathy, improved Bilateral lower extremity weakness Brain mass, residual versus recurrent History of cancer/myeloma of brain and spine History of glioma status postcraniotomy with tumor resection -Neurology following, discussed plan of care with Dr. Coates -Oncology following. Oncologist recommending continuing patient on oral Decadron 4 mg every 6 hours. -Continue neurochecks every 4 hours and fall precautions to remain in place. -Physical and Occupational Therapy following. -Patient reports completing last round of chemotherapy in September currently on Keytruda and radiation therapy. -Continue acyclovir 400 mg nightly. -Consult placed for inpatient rehab. History of recurrent DVTs -Continue Eliquis 5 mg twice daily. Hypertension -Continue daily medication regimen with losartan 25 mg nightly. Hyperlipidemia -Continue rosuvastatin 10 mg nightly. BPH -Continue Flomax 0.8 mg nightly. Rhabdomyolysis, resolved with IV fluid hydration. Hypoglycemia, isolated episode Prerenal azotemia, resolved with IV fluid hydration. Data and imaging reviewed: -Labs reviewed. Lesion leukocytosis with WBC count of 12.61 otherwise no significant abnormalities. BMP showing high anion gap metabolic acidosis with chloride of 110, bicarb of 18.7, and anion gap of 12.30. Blood glucose 155. Magnesium 2.3. Liver profile showing elevated ALT of 60 otherwise normal findings. Albumin was low at 3.6. -Vital signs reviewed. Blood pressure 164/95, heart rate 62, respiratory rate 19, temp 98.0 F, and SpO2 of 96% on room air. Mentation and lower extremity weakness has improved since being started on high- dose steroids.. However per nursing staff patient still requires significant assistance with lying to sitting and sitting to standing and supervision/direction with ambulation. Patient will likely need SNF placement. Discussed the possibility of inpatient rehab with patient and he was in agreement. Family also requesting placement in rehab stating they do not feel patient is safe to be discharged home at this time. Awaiting evaluation for inpatient rehab placement. CODE STATUS: Full code DVT prophylaxis: Jessica Anticipated discharge date: Pending clinical course, likely within the next 24 to 48 hours pending possible placement in rehab. Anticipated discharge place: Home with homecare versus SNF Patient was seen independently by Nurse Practitioner. This document was prepared using [employer] dictation software. Please allow for errors in manager ed while rare they do occur. Carlitos Oliver NP rendered care for this patient independently, reviewed the findings and plan as documented in the note above and agree with plan. I did not physically speak with or examine the patient on this date. . Objective - Vital Signs Vital signs: Vital Signs Temp 98 F 01/16/24 07:49 Pulse 62 01/16/24 07:49 Resp 19 01/16/24 07:49 BP 164/95 01/16/24 07:49 Pulse Ox 96 01/16/24 07:49 FiO2 Intake & Output 01/15/24 01/16/24 01/16/24 18:59 06:59 18:59 Intake Total 1160 Output Total 300 Balance 1160 -300 Intake: Oral 1160 Output: Urine 300 Other: Voiding Method Toilet Urinal Urinal # Voids 3 - Labs CBC & Chem 7: 01/16/24 05:11 01/16/24 05:11 Labs: Abnormal Lab Results - Last 24 Hours (Table) 01/15/24 01/15/24 01/15/24 Range/Units 10:41 10:41 12:16 WBC 14.7 H (3.8-10.6) k/uL MCHC 30.8 L (31.0-37.0) g/dL RDW 17.0 H (11.5-15.5) % Chloride 110 H (98-107) mmol/L Carbon Dioxide 20 L (22-30) mmol/L Glucose 201 H (74-99) mg/dL POC Glucose (mg/dL) 139 H (70-110) mg/dL Magnesium 2.4 H (1.6-2.3) mg/dL ALT 52 H (4-49) U/L Total Protein 5.5 L (6.3-8.2) g/dL Albumin 3.2 L (3.5-5.0) g/dL 01/15/24 01/15/24 01/16/24 Range/Units 17:18 23:41 05:25 WBC (3.8-10.6) k/uL MCHC (31.0-37.0) g/dL RDW (11.5-15.5) % Chloride (98-107) mmol/L Carbon Dioxide (22-30) mmol/L Glucose (74-99) mg/dL POC Glucose (mg/dL) 162 H 188 H 138 H (70-110) mg/dL Magnesium (1.6-2.3) mg/dL ALT (4-49) U/L Total Protein (6.3-8.2) g/dL Albumin (3.5-5.0) g/dL
[2024-01-16] MEDS: dexAMETHasone 4 MG TAB PO SCH (17:12)
[2024-01-16 17:25] LABS: Glucose,Whole Blood 130 mg/dL (70-110)
[2024-01-16 21:14] VITALS: RESP 18
[2024-01-17 00:14] LABS: Glucose,Whole Blood 148 mg/dL (70-110)
[2024-01-17 05:52] LABS: Glucose,Whole Blood 167 mg/dL (70-110)
--- NOTE | 2024-01-17 11:32 | P.DS ---
Providers Date of admission: 01/11/24 16:46 Expected date of discharge: 01/17/24 Attending physician: Jagdish Morejon Consults: 01/11/24 08:43 Consult Physician Routine Consulting Provider: Kerwin Small Consult Reason/Comments: Mild disc bulge with sac flattening at L4-L5. BLE weakness Do you want consulting provider notified?: Yes 01/11/24 11:11 Consult Physician Routine Consulting Provider: Jacobo Coates Consult Reason/Comments: increased confusion s/p fall Do you want consulting provider notified?: Yes 01/13/24 10:28 Consult Physician Routine Consulting Provider: Kamaljit Goncalves Consult Reason/Comments: known hx brain CA-new vs. residual mass on MRI? Do you want consulting provider notified?: Yes 01/15/24 12:57 Consult Physician Routine Consulting Provider: Art Carrillo Consult Reason/Comments: eval for inpatient rehab placement Do you want consulting provider notified?: Yes [facility] Course: Discharge Diagnosis: Acute Metabolic encephalopathy, secondary to vasogenic edema caused by brain mass. Patient's mentation improved he is back to baseline. He was evaluated by neurology and oncology and managed by hospitalist team. Oncologist started patient on high-dose steroids and per their recommendations, patient being discharged home on Decadron 4 mg every 8 hours x 2 weeks and dose to be later titrated down by patient's primary oncologist. These instructions were given to patient and he verbalized understanding. Patient was evaluated by physical and Occupational Therapy and his weakness improved daily. He is currently requiring minimal assistance using walker with gait belt. Patient was offered rehab but declined and is being discharged home with family. Patient to follow-up outpatient with PCP in 1 to 2 days, oncologist within the next 2 weeks, and orthospine surgery team as needed. Bilateral lower extremity weakness. Brain mass, residual versus recurrent. History of cancer/myeloma of brain and spine. 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 Continue Eliquis 5 mg twice daily. Hypertension. Continue daily medication regimen with losartan 25 mg nightly. Hyperlipidemia. Continue rosuvastatin 10 mg nightly. BPH Continue Flomax 0.8 mg nightly. Rhabdomyolysis, resolved with IV fluid hydration. Hypoglycemia, isolated episode Prerenal azotemia, resolved with IV fluid hydration. 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 He presented to the emergency department status post reports of weakness. Patient seen at bedside with daughter at this time. Patient reports he lives at home with his who is currently on vacation and he reports last night while walking to the bathroom his legs became weak like they are going to give out so he lowered himself to the ground. He denies having any dizziness, lightheadedness, loss of consciousness, chest pain, palpitations, or experienci ng any numbness in his extremities reports just lower extremity weakness in which she has experienced since undergoing radiation on his spine resulting in nerve damage. Patient reports however after lowering himself to the ground he was unable to get up and he lied on the bathroom floor for over 12 hours until his daughter came over to check on him and called EMS. Patient currently denies having any complaints but does report having some lower back pain while lying on the floor and upon initially getting up but states since coming to the hospital this has resolved. However during examination and straight leg raises patient did report pain to lower lumbar spine. He denies having any numbness or tingling in his extremities and denies having any focal weakness, saddlebag anesthesias, or experiencing any involuntary loss of bowel or bladder. Upon arrival to our facility, patient underwent evaluation in the emergency department. Vital signs upon arrival show blood pressure 132/84, heart rate 110, respiratory rate 20, temp 98.9 F, and SpO2 of 97% on room air. EKG completed showing normal sinus rhythm at 99 bpm with no significant T wave or ST abnormality noted upon personal review and interpretation. CT head and cervical spine completed. CT head negative for acute intercranial process showing nonspecific white matter changes and postsurgical changes within left cerebellum. CT cervical spine negative showing no evidence of cervical spinal fracture revealing mild multilevel degenerative disc disease. Chest x-ray completed negative for acute cardiopulmonary process. Labs were completed and reviewed. CBC showing elevated hematocrit of 55.4 otherwise no significant abnormalities. BMP showing mild prerenal azotemia with BUN of 23 otherwise normal findings. Coagulation profile normal findings. Blood glucose 85. Liver profile showing elevated ALT of 66 otherwise normal findings. Creatinine kinase was elevated at 597 and troponin was 0.024. Patient admitted under our services with consultation to physical and Occupational Therapy for evaluation. EEG was completed showing a normal routine EEG with no focal slowing, epileptiform discharges, or seizure activity on EEG. MRI brain showing residual versus recurrent inferior anterior left cerebellar mass with mild mass effect on the adjacent brain without significant vasogenic edema and confluent periventricular white matter ischemic type changes. CT lumbar spine showing mild disc bulge with anterior thecal sac flattening at L4-L5 with loss of disc height at this level with mild to moderate bilateral foraminal narrowing present, superior endplate compression L2 fracture appears to be old, and postsurgical changes with laminectomy of T12 and L1. Orthospine surgery team following and recommended conservative management at this time. MRI thoracic spine showing mild degenerative changes with suspected posttreatment changes to the bone marrow near posterior elements from the thecal sac, T6-T7 and T7-T8 central osteophyte versus small central disc protrusions with mild indent upon the spinal cord. MRI lumbar spine showing mild subligamentous disc herniation centrally with minimal anterior thecal sac compression of L2, loss of disc height with residual disc bulge at L4-L5 central and right paracentral, mild to moderate right foraminal narrowing, and previous enhancing mass at the T12 level is no longer identified. Oncology was consulted initially increasing steroids to Decadron 4 mg every 6 hours and decreased today to 4 mg every 8 hours.. Patient's mentation improved he is back to baseline. He was evaluated by neurology and oncology and managed by hospitalist team. Oncologist started patient on high-dose steroids and per their recommendations, patient being discharged home on Decadron 4 mg every 8 hours x 2 weeks and dose to be later titrated down by patient's primary oncologist. These instructions were given to patient and he verbalized understanding. Patient was evaluated by physical and Occupational Therapy and his weakness improved daily. He is currently requiring minimal assistance using walker with gait belt. Patient was offered rehab but declined and is being discharged home with family. Patient to follow-up outpatient with PCP in 1 to 2 days, oncologist within the next 2 weeks, and orthospine surgery team as needed. Physical exam: Vital signs reviewed and stable. General: Nontoxic, no distress and appears stated age. Derm: Skin warm and dry, normal coloration for ethnicity. Head: Atraumatic, normocephalic and symmetric. Eyes: EOM's intact, no lid lag, and anicteric sclera Mouth: no lip lesions, mucus membranes moist Cardiovascular: regular rate and rhythm with normal S1S2, no murmur, positive posterior tibial pulses bilaterally, and cap refill < 2 seconds. Lungs: Respirations even, regular, and unlabored on room air. Lungs CTA bilaterally, no rhonchi, no rales, no wheezing, and no accessory muscle usage. Abdominal: soft, nontender to palpation, no guarding, no appreciable organomegaly Ext: ROM intact. No gross muscle atrophy, 1+ bilateral lower extremity edema, no contractures Neuro: Speech clear, face symmetrical and CN II-XII grossly intact with no noted focal neuro deficits. GCS 15. Psych: Alert and oriented to person, time, and situation. Patient pleasant and cooperative. A total of 39 minutes of time were spent preparing this complex discharge summary. Pt was discharged on 01/17/2024 at 11:23 AM. Patient was seen independently by Nurse Practitioner. This document was prepared using [employer] dictation software. Please allow for errors in automation and control engineer while rare they do occur. Carlitos Oliver NP rendered care for this patient independently, reviewed the findings and plan as documented in the note above. I did not physically speak with or examine the patient on this date. Patient Condition at Discharge: Stable Plan - Discharge Summary Discharge Rx Participant: No New Discharge Prescriptions: New dexAMETHasone ORAL [Hexadrol] 4 mg PO Q8HR 14 Days #42 tab Continue Tamsulosin HCl [Flomax] 0.8 mg PO HS dexAMETHasone 1 mg PO DAILY Potassium Chloride [Klor-Con M10] 10 meq PO DAILY Losartan [Cozaar] 25 mg PO HS Pembrolizumab [Keytruda] 1 dose IV Q42D Sennosides [Senokot] 8.6 mg PO DAILY Gabapentin [Neurontin] 100 mg PO BID Apixaban [Eliquis] 5 mg PO BID Omeprazole 20 mg PO DAILY Acyclovir [Zovirax] 400 mg PO HS Rosuvastatin [Crestor] 10 mg PO HS Mirtazapine [Remeron] 15 mg PO HS Furosemide [Lasix] 40 mg PO DAILY Testosterone Cypionate [Depo-Testosterone] 100 mg IM MOTH Discharge Medication List Acyclovir [Zovirax] 400 mg PO HS 12/17/22 [History] Apixaban [Eliquis] 5 mg PO BID 12/17/22 [History] Gabapentin [Neurontin] 100 mg PO BID 12/17/22 [History] Omeprazole 20 mg PO DAILY 12/17/22 [History] Tamsulosin HCl [Flomax] 0.8 mg PO HS 12/17/22 [History] dexAMETHasone 1 mg PO DAILY 12/17/22 [History] Furosemide [Lasix] 40 mg PO DAILY 01/10/24 [History] Losartan [Cozaar] 25 mg PO HS 01/10/24 [History] Mirtazapine [Remeron] 15 mg PO HS 01/10/24 [History] Pembrolizumab [Keytruda] 1 dose IV Q42D 01/10/24 [History] Potassium Chloride [Klor-Con M10] 10 meq PO DAILY 01/10/24 [History] Rosuvastatin [Crestor] 10 mg PO HS 01/10/24 [History] Sennosides [Senokot] 8.6 mg PO DAILY 01/10/24 [History] Testosterone Cypionate [Depo-Testosterone] 100 mg IM MOTH 01/10/24 [History] dexAMETHasone ORAL [Hexadrol] 4 mg PO Q8HR 14 Days #42 tab 01/17/24 [Rx] Follow up Appointment(s)/Referral(s): Rhett Contreras DO [Primary Care Provider] - 1-2 days Kerwin Small DO [Doctor of Osteopathic Medicine] - As Needed Patient Instructions/Handouts: Encephalopathy (DC), Brain Tumors (DC) Activity/Diet/Wound Care/Special Instructions: Activity: As tolerated. Take breaks as needed. Diet: Heart healthy and carb consistent diet. Avoid salts, or foods with hidden salts such as canned or boxed foods and frozen dinners. Extra salt makes your heart work harder and traps the fluid in your body for longer. Special Instructions: Take all of your medications as directed and remember to keep all of your doctor's appointments and follow-up as needed. Per oncology, continue Decadron 4 mg every 8 hours for 2 weeks and dose to then be titrated down by your primary oncolocologist so please be sure to call and schedule appointment prior to this. Wishing you and your family a truly blessed holiday season and a happy and healthy new year!! Thank you for allowing us to participate in your care, it was truly a pleasure having you for our patient!!! . Discharge/Stand Alone Forms: Community Resources, Outpatient Counseling, Outpatient Therapy List Discharge Disposition: HOME SELF-CARE
[2024-01-17 12:22] LABS: Glucose,Whole Blood 99 mg/dL (70-110)
[2024-01-17 12:40] VITALS: BP 162/91; PULSE 70; TEMP 98.4
== END 2024-01-17 14:48 | disposition home or self-care (01) | DRG 80 ==
LOC: EC 11:04 → 5NMEDONC 14:37 → 4SSUR 20:31 → 5NMEDONC 20:59 → OBSVTOIN 01-11 16:46
PROVIDERS: ADMIT Student in an Organized Health Care Education/Training Program; ATTEND Student in an Organized Health Care Education/Training Program
DX: G93.6 Cerebral edema (principal); G93.41 Metabolic encephalopathy; C71.9 Malignant neoplasm of brain, unspecified; M62.82 Rhabdomyolysis; C90.00 Multiple myeloma not having achieved remission; M51.06 Intervertebral disc disorders with myelopathy, lumbar region; E78.5 Hyperlipidemia, unspecified; I10 Essential (primary) hypertension; N40.0 Benign prostatic hyperplasia without lower urinary tract symptoms; R53.1 Weakness; E16.2 Hypoglycemia, unspecified; H55.00 Unspecified nystagmus; J38.01 Paralysis of vocal cords and larynx, unilateral; K21.9 Gastro-esophageal reflux disease without esophagitis; M48.56XD Collapsed vertebra, not elsewhere classified, lumbar region, subsequent encounter for fracture with routine healing; Z86.718 Personal history of other venous thrombosis and embolism; Z88.6 Allergy status to analgesic agent; Z92.21 Personal history of antineoplastic chemotherapy; Z92.3 Personal history of irradiation
CPT/HCPCS: 36415; 70450; 70553; 71046; 72125; 72131; 72157; 72158; 80053; 81003; 82550; 82607; 83735; 84443; 84484; 85025; 85027; 85610; 85730; 93005; 94760; 95816; 99285

== ENCOUNTER 2024-02-15 03:52 | Emergency (ER) | payer MEDICARE ==
--- NOTE | 2024-02-15 04:36 | ED ---
General Adult HPI - General Chief complaint: Fall Stated complaint: L Leg Weakness Time Seen by Provider: 02/15/24 04:29 Source: patient Mode of arrival: EMS - History of Present Illness Initial comments: is a 58 yo M of cancer with masses in his brain and spinal cord patient was on oral chemotherapy that was discontinued in December. Patient is brought to the ER today for evaluation of generalized weakness and fall at home. Patient was attempting to get out of his shower chair stood up felt weak fell hit his left knee. Upon arrival patient was noted to be febrile though the patient denied any fevers chills nausea vomiting cough shortness of breath abdominal pain he reports he has been eating and drinking well. Patients reports patient is not acting like himself. They were out and about yesterday morning and he needed help getting into the car, he was off balance and leaning to the left. when they got home he went to bed, slept all day, woke up after his woke up and went to the garage to work-out but was weak and off balance so she called EMS for transport. - Related Data Home Medications Medication Instructions Recorded Confirmed Acyclovir [Zovirax] 400 mg PO HS 12/17/22 01/10/24 Apixaban [Eliquis] 5 mg PO BID 12/17/22 01/10/24 Gabapentin [Neurontin] 100 mg PO BID 12/17/22 01/10/24 Omeprazole 20 mg PO DAILY 12/17/22 01/10/24 Tamsulosin HCl [Flomax] 0.8 mg PO HS 12/17/22 01/10/24 dexAMETHasone 1 mg PO DAILY 12/17/22 01/10/24 Furosemide [Lasix] 40 mg PO DAILY 01/10/24 01/10/24 Losartan [Cozaar] 25 mg PO HS 01/10/24 01/10/24 Mirtazapine [Remeron] 15 mg PO HS 01/10/24 01/10/24 Pembrolizumab [Keytruda] 1 dose IV Q42D 01/10/24 01/10/24 Potassium Chloride [Klor-Con M10] 10 meq PO DAILY 01/10/24 01/10/24 Rosuvastatin [Crestor] 10 mg PO HS 01/10/24 01/10/24 Sennosides [Senokot] 8.6 mg PO DAILY 01/10/24 01/10/24 Testosterone Cypionate 100 mg IM MOTH 01/10/24 01/10/24 [Depo-Testosterone] Previous Rx's Medication Instructions Recorded dexAMETHasone ORAL [Hexadrol] 4 mg PO Q8HR 14 Days #42 tab 01/17/24 Allergies Allergy/AdvReac Type Severity Reaction Status Date / Time ibuprofen [From Motrin] AdvReac "stomach Verified 02/15/24 04:00 bleed" Review of Systems ROS Statement: Those systems with pertinent positive or pertinent negative responses have been documented in the HPI. ROS Other: All systems not noted in ROS Statement are negative. Past Medical History Past Medical History: Cancer, Deep Vein Thrombosis (DVT), GERD/Reflux, Hypertension, Prostate Disorder Additional Past Medical History / Comment(s): Brain and spine cancer on oral chemo (ended in Dec 2023). left vocal cord paralysis, some issues with swallowing per . History of Any Multi-Drug Resistant Organisms: None Reported Additional Past Surgical History / Comment(s): colonoscopy, brain and spine surgery. vasectomy and reversal. Past Anesthesia/Blood Transfusion Reactions: Family History of Problems w/ Anesthesia Additional Past Anesthesia/Blood Transfusion Reaction / Comment(s): mom n/v Past Psychological History: No Psychological Hx Reported Smoking Status: Never smoker Past Alcohol Use History: None Reported Past Drug Use History: None Reported - Past Family History Father Family Medical History: Coronary Artery Disease (CAD) General Exam Limitations: altered mental status General appearance: alert (Oriented to person can identify place and time however poor historian regarding his past medical history and events leading to hospitalization) Eye exam: Present: EOMI. Absent: scleral icterus Respiratory exam: Absent: respiratory distress Cardiovascular Exam: Present: tachycardia GI/Abdominal exam: Present: soft. Absent: distended Rectal exam: Present: deferred exam: Present: normal inspection Extremities exam: Present: pedal edema Course Vital Signs 02/15/24 02/15/24 02/15/24 03:54 05:00 05:55 Temperature 100.1 F H 99.5 F Pulse Rate 116 H 99 Respiratory 18 18 Rate Blood Pressure 128/78 137/88 O2 Sat by Pulse 95 95 Oximetry 02/15/24 02/15/24 06:20 07:32 Temperature 98.3 F Pulse Rate 96 102 H Respiratory 18 18 Rate Blood Pressure 141/89 150/91 O2 Sat by Pulse 97 97 Oximetry EKG Findings - EKG Comments: EKG Findings:: EKG interpreted by me EKG obtained due to tachycardia, EKG obtained at 4:42 AM rate is 110 rhythm is sinus tach leftward axis deviation, normal intervals SC 132 QRS 106 QTc [address] elevation or pressure no evidence of acute ischemia or infarction. Medical Decision Making - Medical Decision Making Was pt. sent in by a medical professional or institution (, PA, SHAPER SETTER, urgent care, hospital, or alf...) When possible be specific @ -No Did you speak to anyone other than the patient for history (EMS, parent, family, police, friend...)? What history was obtained from this source @ -Patient Did you review nursing and triage notes (agree or disagree)? Why? @ -I reviewed and agree with nursing and triage notes Were old charts reviewed (outside hosp., previous admission, EMS record, old EK G, old radiological studies, urgent care reports/EKG's, alf records)? Report findings @ -Yes notes, MRIs were reviewed Differential Diagnosis (chest pain, altered mental status, abdominal pain women, abdominal pain men, vaginal bleeding, weakness, fever, dyspnea, syncope, headache, dizziness, GI bleed, back pain, seizure, CVA, palpatations, mental health)? @ -Differential Fever: Pneumonia, viral URI, endocarditis, myocarditis, pericarditis, otitis, sinusitis, peritonsillar Abscess, retropharyngeal Abscess, epiglottitis, peritonitis, appendicitis, Michelle cystitis, diverticulitis, hepatitis, colitis, UTI, PID, TOA, pyelonephritis, prostatitis, epididymitis, meningitis, encephalitis, pulmonary embolism, CVA, thyroid storm, pancreatitis, adrenal crisis, cavernous sinus thrombosis, this is not meant to be an all-inclusive list. Differential Altered Mental Status: Hypoglycemia, DKA, hypercapnia, ETOH, overdose, CO poisoning, trauma, myxedema coma, HTN encephalopathy, infection, encephalitis, psychosis, intercranial hemorrhage, hepatic encephalopathy, meningitis, CVA, this is not meant to be an all-inclusive list EKG interpreted by me (3pts min.). @ -As above X-rays interpreted by me (1pt min.). @ -Chest x-ray with right lower lobe pneumonia CT interpreted by me (1pt min.). @ -CT with some area of edema anterior to the left cerebellum U/S interpreted by me (1pt. min.). @ -None done What testing was considered but not performed or refused? (CT, X-rays, U/S, labs)? Why? @ -MRI can be performed at [facility] What meds were considered but not given or refused? Why? @ -None Did you discuss the management of the patient with other professionals (professionals i.e. , PA, SHAPER SETTER, lab, RT, psych nurse, social human services assistants, circuit designer, teacher, surveillance dual rate officer, case picker)? Give summary @ -Dayanna with neurosurgeon Dr. Moncada Was smoking cessation discussed for >3mins.? @ -No Was critical care preformed (if so, how long)? @ -45 Were there social determinants of health that impacted care today? How? (Homelessness, low income, unemployed, alcoholism, drug addiction, t ransportation, low edu. Level, literacy, decrease access to med. care, nursing home, rehab)? @ -No Was there de-escalation of care discussed even if they declined (Discuss DNR or withdrawal of care, Hospice)? DNR status @ -No What co-morbidities impacted this encounter? (DM, HTN, Smoking, COPD, CAD, Cance r, CVA, ARF, Chemo, Hep., AIDS, mental health diagnosis, sleep apnea, morbid obesity)? @ -Brain/spinal cord cancer, previous chemo, Was patient admitted / discharged? Hospital course, mention meds given and route, prescriptions, significant lab abnormalities, going to OR and other pertinent info. @ -Per to outside facility [facility] Was seen and evaluated, upon arrival the patient is sleepy, vital signs consistent with SIRS criteria patient also has a history of brain tumors was concerned about his balance. Septic workup was initiated viral swabs were obtained IV fluids and IV Ofirmev were administered. CT head was reviewed by me and I see some cerebral edema anterior to the cerebellum on the left. No signs of acute large bleeding, no midline shift. Chest x-ray was reviewed by me and is concerning for pneumonia Rocephin and azithromycin ordered. Patient was negative for virus on viral swabs. CT findings patient's condition was discussed with his and then with his neurosurgeon Dr. Moncada agrees with plan for transfer to [place] patient will likely need MRI and medical management of the sepsis secondary to pneumonia. Patient care was discussed with the ER physician who accepts the transfer. Undiagnosed new problem with uncertain prognosis? @ -Yes potential recurrence of brain mass Drug Therapy requiring intensive monitoring for toxicity (Heparin, Nitro, Insulin, Cardizem)? @ -No Were any procedures done? @ -No Diagnosis/symptom? @ -Sepsis secondary to pneumonia Brain mass v bleed in previous tumor stie Acute, or Chronic, or Acute on Chronic? @ -Acute Uncomplicated (without systemic symptoms) or Complicated (systemic symptoms)? @ -Default Side effects of treatment? @ -No Exacerbation, Progression, or Severe Exacerbation? @ -No Poses a threat to life or bodily function? How? (Chest pain, USA, OR, pneumonia, PE, COPD, DKA, ARF, appy, cholecystitis, CVA, Diverticulitis, Homicidal, Suicidal, threat to staff... and all critical care pts) @ Yes - Lab Data Result diagrams: 02/15/24 04:05 02/15/24 04:05 Lab Results 02/15/24 02/15/24 02/15/24 Range/Units 04:05 04:05 04:05 WBC 8.8 (3.8-10.6) k/uL RBC 5.73 (4.30-5.90) m/uL Hgb 16.7 (13.0-17.5) gm/dL Hct 53.4 H (39.0-53.0) % MCV 93.1 (80.0-100.0) fL MCH 29.1 (25.0-35.0) pg MCHC 31.2 (31.0-37.0) g/dL RDW 17.5 H (11.5-15.5) % Plt Count 112 L D (150-450) k/uL MPV 8.1 Neutrophils % 95 % Lymphocytes % 2 % Monocytes % 3 % Eosinophils % 0 % Basophils % 0 % Neutrophils # 8.3 H (1.3-7.7) k/uL Lymphocytes # 0.1 L (1.0-4.8) k/uL Monocytes # 0.3 (0-1.0) k/uL Eosinophils # 0.0 (0-0.7) k/uL Basophils # 0.0 (0-0.2) k/uL Hypochromasia Moderate Anisocytosis Slight PT 12.0 (10.0-12.5) sec INR 1.1 (<1.2) APTT 22.5 (22.0-30.0) sec Sodium 139 (137-145) mmol/L Potassium 4.2 (3.5-5.1) mmol/L Chloride 106 (98-107) mmol/L Carbon Dioxide 25 (22-30) mmol/L Anion Gap 8 mmol/L BUN 30 H (9-20) mg/dL Creatinine 1.09 (0.66-1.25) mg/dL Est GFR (CKD-EPI)AfAm 86 (>60 ml/min/1.73 sqM) Est GFR (CKD-EPI)NonAf 74 (>60 ml/min/1.73 sqM) Glucose 90 (74-99) mg/dL Lactic Ac Sepsis Rflx Plasma Lactic Acid Fabian (0.7-2.0) mmol/L Calcium 8.3 L (8.4-10.2) mg/dL Total Bilirubin 0.9 (0.2-1.3) mg/dL AST 47 (17-59) U/L ALT 98 H (4-49) U/L Alkaline Phosphatase 55 (38-126) U/L Total Protein 5.3 L (6.3-8.2) g/dL Albumin 3.2 L (3.5-5.0) g/dL Influenza Type A (PCR) (Not Detectd) Influenza Type B (PCR) (Not Detectd) RSV (PCR) (Not Detectd) SARS-CoV-2 (PCR) (Not Detectd) 02/15/24 02/15/24 02/15/24 Range/Units 04:05 06:02 06:21 WBC (3.8-10.6) k/uL RBC (4.30-5.90) m/uL Hgb (13.0-17.5) gm/dL Hct (39.0-53.0) % MCV (80.0-100.0) fL MCH (25.0-35.0) pg MCHC (31.0-37.0) g/dL RDW (11.5-15.5) % Plt Count (150-450) k/uL MPV Neutrophils % % Lymphocytes % % Monocytes % % Eosinophils % % Basophils % % Neutrophils # (1.3-7.7) k/uL Lymphocytes # (1.0-4.8) k/uL Monocytes # (0-1.0) k/uL Eosinophils # (0-0.7) k/uL Basophils # (0-0.2) k/uL Hypochromasia Anisocytosis PT (10.0-12.5) sec INR (<1.2) APTT (22.0-30.0) sec Sodium (137-145) mmol/L Potassium (3.5-5.1) mmol/L Chloride (98-107) mmol/L Carbon Dioxide (22-30) mmol/L Anion Gap mmol/L BUN (9-20) mg/dL Creatinine (0.66-1.25) mg/dL Est GFR (CKD-EPI)AfAm (>60 ml/min/1.73 sqM) Est GFR (CKD-EPI)NonAf (>60 ml/min/1.73 sqM) Glucose (74-99) mg/dL Lactic Ac Sepsis Rflx Y Plasma Lactic Acid Fabian 2.6 H* (0.7-2.0) mmol/L Calcium (8.4-10.2) mg/dL Total Bilirubin (0.2-1.3) mg/dL AST (17-59) U/L ALT (4-49) U/L Alkaline Phosphatase (38-126) U/L Total Protein (6.3-8.2) g/dL Albumin (3.5-5.0) g/dL Influenza Type A (PCR) Not Detected (Not Detectd) Influenza Type B (PCR) Not Detected (Not Detectd) RSV (PCR) Not Detected (Not Detectd) SARS-CoV-2 (PCR) Not Detected (Not Detectd) Disposition Clinical Impression: Astrocytoma, Weakness, Cerebral edema, Pneumonia, Sepsis Disposition: OTHER INSTITUTION NOT DEFINED Condition: Serious Is patient prescribed a controlled substance at d/c from ED?: No Referrals: Rhett Contreras DO [Primary Care Provider] - 1-2 days - Out of Hospital Transfer - Req. Specs Out of Hospital Transfer - Requested Specifics: Neurological ICU ([facility]
[2024-02-15] MEDS: ACETAMINOPHEN IV (For NPO) 1,000 MG in EMPTY BAG 1 BAG IVPB STA (04:45)
[2024-02-15] MEDS: SODIUM CHLORIDE 0.9% 500 ML 500 ML IV SCH (04:45)
[2024-02-15 05:34] LABS: ALT 98 U/L (4-49); African American GFR (CKD) 86 (>60 ml/min/1.73 sqM); Albumin 3.2 g/dL (3.5-5.0); Anion Gap 8 mmol/L; Blood Urea Nitrogen 30 mg/dL (9-20); Calcium 8.3 mg/dL (8.4-10.2); Carbon Dioxide 25 mmol/L (22-30); Chloride 106 mmol/L (98-107); Glucose 90 mg/dL (74-99); Non-African American GFR(CKD) 74 (>60 ml/min/1.73 sqM); Sodium 139 mmol/L (137-145); Total Bilirubin 0.9 mg/dL (0.2-1.3); Total Protein 5.3 g/dL (6.3-8.2)
[2024-02-15 05:36] LABS: Anisocytosis Slight; Basophils % (A) 0 %; Eosinophils % (A) 0 %; HCT 53.4 % (39.0-53.0); HGB 16.7 gm/dL (13.0-17.5); Hypochromasia Moderate; Lymphocytes # (A) 0.1 k/uL (1.0-4.8); Lymphocytes % (A) 2 %; MCH 29.1 pg (25.0-35.0); MCHC 31.2 g/dL (31.0-37.0); MCV 93.1 fL (80.0-100.0); Mean Platelet Volume 8.1; Monocytes # (A) 0.3 k/uL (0-1.0); Monocytes % (A) 3 %; Neutrophils # (A) 8.3 k/uL (1.3-7.7); Neutrophils % (A) 95 %; Platelet Count 112 k/uL (150-450); RBC 5.73 m/uL (4.30-5.90); RDW 17.5 % (11.5-15.5); WBC 8.8 k/uL (3.8-10.6)
[2024-02-15 05:39] LABS: AST 47 U/L (17-59); Alkaline Phosphatase 55 U/L (38-126); Potassium 4.2 mmol/L (3.5-5.1)
[2024-02-15 05:43] LABS: INR 1.1 (<1.2); Partial Thromboplastin Time 22.5 sec (22.0-30.0)
[2024-02-15] MEDS: SODIUM CHLORIDE 0.9% 1,000 ML IV SCH (05:54)
--- NOTE | 2024-02-15 07:20 | CT ---
EXAM: CT Head Without Intravenous Contrast CLINICAL HISTORY: ITS.REASON CT Reason: altered, hx of brain ca TECHNIQUE: Axial computed tomography images of the head/brain without intravenous contrast. CTDI is 49.27 mGy and DLP is 1110.4 mGy-cm. This CT exam was performed using one or more of the following dose reduction techniques: automated exposure control, adjustment of the mA and/or kV according to patient size, and/or use of iterative reconstruction technique. COMPARISON: Prior brain MRI from January 12, 2024. FINDINGS: Brain: Postsurgical changes in the left cerebellum. There is a small area of increased density at the anterior margin of the left cerebellum, which may represent a tiny amount of acute blood or residual tumor (series 202, image 11). Advanced nonspecific white matter changes. No edema. Ventricles: Unremarkable. No ventriculomegaly. Bones/joints: Status post left suboccipital craniotomy. No acute fracture. Soft tissues: Unremarkable. Sinuses: Unremarkable as visualized. No acute sinusitis. Mastoid air cells: Unremarkable as visualized. No mastoid effusion. IMPRESSION: Focal area of increased density anterior to the left cerebellum, which may represent a tiny amount of intraparenchymal blood or residual tumor. Recommend short-term interval follow-up to evaluate for stability. <MYCVCSECTION> Communications: 02/15/24 08:20 Verify Receipt Verified receipt with KRISTINA Chris for Dr. Villa on 02/14 08:20 (-05:00)
--- NOTE | 2024-02-15 07:55 | XR ---
EXAMINATION TYPE: XR chest 1V DATE OF EXAM: 02/15/2024 COMPARISON: 01/10/2024 CLINICAL INDICATION: Male, 58 years old with history of fever; TECHNIQUE: Single frontal view of the chest is obtained. FINDINGS: Heart mildly enlarged. Interstitial densities bilaterally and more focal right lower lung airspace opacity. No pleural effusion. Heart upper limits of normal in size. IMPRESSION: Right basilar airspace disease/pneumonia. [facility], Workstation: [facility], 02/15/2024 7:53 AM
[2024-02-15] MEDS: cefTRIAXone IN SWFI 1,000 MG/10 ML SYRINGE IVP STA (08:44)
[2024-02-15] MEDS: AZITHROMYCIN 500 MG in SODIUM CHLORIDE 0.9% 250 ML IVPB STA (08:46)
[2024-02-15 08:52] VITALS: RESP 16
[2024-02-15 09:04] VITALS: BP 115/77; PULSE 105; TEMP 98.5
== END 2024-02-15 09:18 | disposition other institution (70) ==
LOC: EC 03:52
DX: A41.9 Sepsis, unspecified organism (principal); J18.9 Pneumonia, unspecified organism; C71.9 Malignant neoplasm of brain, unspecified; G93.6 Cerebral edema; Z88.6 Allergy status to analgesic agent
CPT/HCPCS: 36415; 93005; 80053; 83605; 85025; 85610; 85730; 87040; 87636; 71045; 70450; 99291; 96365; 96375; 96361; J0456; J0696; J0131